=== PATIENT | male | born 1965 | race American Indian/Alaskan Native ===

== ENCOUNTER 2020-07-02 07:14 | Emergency (ER) | payer SELFPAY ==
[2020-07-02] MEDS ORDERED: levETIRAcetam 1000 MG/NS 0.75% 1,000 MG/100 ML BAG IV ONE (08:30)
[2020-07-02 08:56] LABS: Hematocrit 42.1 % (35.5-45.6); Hemoglobin 14.7 gm/dl (11.8-15.2); Mean Corpuscular HGB Conc 35 % (32-34); Mean Corpuscular Volume 98 fl (84-94); Red Blood Count 4.28 M/mm3 (3.65-5.03); Red Cell Distribution Width 13.5 % (13.2-15.2)
[2020-07-02 08:59] LABS: Platelet Count 79 K/mm3 (140-440)
[2020-07-02 09:25] LABS: Alanine Aminotransferase 64 units/L (7-56); Albumin 4.5 g/dL (3.9-5); Bilirubin,Direct 0.4 mg/dL (0-0.2); Blood Urea Nitrogen 9 mg/dL (9-20); Calcium 9.6 mg/dL (8.4-10.2); Hemolysis Index 14
[2020-07-02 09:29] LABS: BUN/Creatinine Ratio 13
--- NOTE | 2020-07-02 10:07 | Emergency Department Report ---
ED Seizure HPI - General Chief Complaint: Seizure Stated Complaint: SEIZURE Time Seen by Provider: 07/02/20 08:25 Source: patient, EMS Mode of arrival: Stretcher Limitations: No Limitations - History of Present Illness Initial Comments: This is a 54-year-old male who was transported by EMS after a seizure of "approximately 5 minutes". Patient is very limited historian and is likely postictal. He has somewhat repetitive speech. He is able to tell me that he does drink beer and that he has not had any for 2 days. He does not admit to withdrawal type symptoms. I think he is saying that he has previously had a seizure. It does appear that perhaps he has a slight right facial paresis/asymmetry. He cannot tell me if he has had a previous stroke. MD Complaint: seizure -: Sudden Description of Episode: loss of consciousness -: minutes(s) - Related Data Previous Rx's Medication Instructions Recorded Last Taken Type cefUROXime [Ceftin] 250 mg PO Q12H #14 tablet 07/02/20 Unknown Rx levETIRAcetam [Keppra TAB] 500 mg PO BID #60 tablet 07/02/20 Unknown Rx Allergies Allergy/AdvReac Type Severity Reaction Status Date / Time No Known Allergies Allergy Unverified 07/02/20 08:01 ED Review of Systems ROS: Stated complaint: SEIZURE Other details as noted in HPI Comment: Unobtainable due to pts medical conditions ED Past Medical Hx - Past Medical History Previous Medical History?: Yes Hx Hypertension: Yes Hx Seizures: Yes - Social History Smoking Status: Current Every Day Smoker Substance Use Type: None - Medications Home Medications: Home Medications Medication Instructions Recorded Confirmed Last Taken Type cefUROXime [Ceftin] 250 mg PO Q12H #14 tablet 07/02/20 Unknown Rx levETIRAcetam [Keppra TAB] 500 mg PO BID #60 tablet 07/02/20 Unknown Rx ED Physical Exam - General Limitations: Other General appearance: alert, in no apparent distress - Head Head exam: Present: atraumatic, normocephalic - Eye Eye exam: Present: normal appearance, PERRL, EOMI. Absent: scleral icterus (Postictal) - ENT ENT exam: Present: mucous membranes moist, other (Facial asymmetry) - Neck Neck exam: Present: normal inspection. Absent: tenderness, meningismus - Respiratory Respiratory exam: Present: normal lung sounds bilaterally. Absent: respiratory distress - Cardiovascular Cardiovascular Exam: Present: regular rate, normal rhythm. Absent: systolic murmur, diastolic murmur, rubs, gallop - GI/Abdominal GI/Abdominal exam: Present: soft, normal bowel sounds. Absent: distended, tenderness, guarding, rebound, rigid - Rectal Rectal exam: Present: deferred - Extremities Exam Extremities exam: Present: normal inspection - Back Exam Back exam: Present: normal inspection - Neurological Exam Neurological exam: Present: altered. Absent: CN II-XII intact (Right facial asymmetry partial paresis), motor sensory deficit - Psychiatric Psychiatric exam: Present: normal mood, flat affect - Skin Skin exam: Present: warm, dry, intact, normal color. Absent: rash ED Course Vital Signs 07/02/20 07/02/20 07:15 08:11 Temperature 98.2 F Pulse Rate 98 H Respiratory 16 16 Rate Blood Pressure 135/89 O2 Sat by Pulse 95 95 Oximetry - Reevaluation(s) Reevaluation #1: Patient is a bit hard to comprehend. However I believe he is stating that he has a history of seizures. Apparently his is his caregiver. He has no signs of any neurological progression. He is awake alert ambulatory and requesting discharge. He states that he does not drive. 07/02/20 14:41 ED Medical Decision Making - Lab Data Result diagrams: 07/02/20 08:38 07/02/20 08:38 Laboratory Results - last 24 hr 07/02/20 07/02/20 08:38 08:38 WBC 5.5 RBC 4.28 Hgb 14.7 Hct 42.1 MCV 98 H MCH 34 H MCHC 35 H RDW 13.5 Plt Count 79 L Add Manual Diff Complete Total Counted 100 Seg Neuts % (Manual) 79.0 H Band Neutrophils % 0 Lymphocytes % (Manual) 13.0 L Reactive Lymphs % (Man) 0 Monocytes % (Manual) 8.0 H Eosinophils % (Manual) 0 Basophils % (Manual) 0 Metamyelocytes % 0 Myelocytes % 0 Promyelocytes % 0 Blast Cells % 0 Nucleated RBC % Not Reportable Seg Neutrophils # Man 4.3 Band Neutrophils # 0.0 Lymphocytes # (Manual) 0.7 L Abs React Lymphs (Man) 0.0 Monocytes # (Manual) 0.4 Eosinophils # (Manual) 0.0 Basophils # (Manual) 0.0 Metamyelocytes # 0.0 Myelocytes # 0.0 Promyelocytes # 0.0 Blast Cells # 0.0 WBC Morphology Not Reportable Hypersegmented Neuts Not Reportable Hyposegmented Neuts Not Reportable Hypogranular Neuts Not Reportable Smudge Cells Not Reportable Toxic Granulation Not Reportable Toxic Vacuolation Not Reportable Dohle Bodies Not Reportable Pelger-Huet Anomaly Not Reportable Joseph Rods Not Reportable Platelet Estimate Consistent w auto Clumped Platelets Not Reportable Plt Clumps, EDTA Not Reportable Large Platelets Not Reportable Giant Platelets Not Reportable Platelet Satelliting Not Reportable Plt Morphology Comment Not Reportable RBC Morphology Not Reportable Dimorphic RBCs Not Reportable Polychromasia Not Reportable Hypochromasia Not Reportable Poikilocytosis Not Reportable Anisocytosis Not Reportable Microcytosis Not Reportable Macrocytosis Not Reportable Spherocytes Not Reportable Pappenheimer Bodies Not Reportable Sickle Cells Not Reportable Target Cells Not Reportable Tear Drop Cells Not Reportable Ovalocytes Not Reportable Helmet Cells Not Reportable Galarza-[place] Bodies Not Reportable [place] Rings Not Reportable [place] Cells Not Reportable Bite Cells Not Reportable Crenated Cell Not Reportable Elliptocytes Not Reportable Acanthocytes (Spur) Not Reportable Rouleaux Not Reportable Hemoglobin C Crystals Not Reportable Schistocytes Not Reportable Malaria parasites Not Reportable Yong Bodies Not Reportable Hem Pathologist Commnt No Sodium 133 L Potassium 4.3 Chloride 91.3 L Carbon Dioxide 22 Anion Gap 24 BUN 9 Creatinine 0.7 L Estimated GFR > 60 BUN/Creatinine Ratio 13 Glucose 103 H Calcium 9.6 Total Bilirubin 1.00 Direct Bilirubin 0.4 H Indirect Bilirubin 0.6 AST 120 H ALT 64 H Alkaline Phosphatase 59 Total Protein 7.6 Albumin 4.5 Albumin/Globulin Ratio 1.5 - Radiology Data Radiology results: report reviewed (Encephalomalacia, no acute process), image reviewed Critical care attestation.: If time is entered above; I have spent that time in minutes in the direct care of this critically ill patient, excluding procedure time. ED Disposition Clinical Impression: Generalized seizure, Chronic liver disease, Thrombocytopenia UTI (urinary tract infection) Qualifiers: Urinary tract infection type: site unspecified Hematuria presence: without hematuria Qualified Code(s): N39.0 - Urinary tract infection, site not specified Disposition: DC- TO HOME OR SELFCARE Is pt being admited?: No Does the pt Need Aspirin: No Condition: Stable Instructions: Epilepsy (ED), Urinary Tract Infection in Men (ED) Additional Instructions: You appear to have a urinary tract infection. Rx as directed. Seizure medicine as directed. Follow-up with your primary care provider. If you do not have one you can contact [facility] vic or Dr. Kelly. Urine culture will be ready for review in 2 to 3 days. Prescriptions: cefUROXime [Ceftin] 250 mg PO Q12H #14 tablet levETIRAcetam [Keppra TAB] 500 mg PO BID #60 tablet Referrals: DEXTER RIVAS MD [Primary Care Provider] - 3-5 Days Time of Disposition: 14:49
[2020-07-02 10:11] LABS: Basophils % (Manual) 0 % (0.0-1.8); Eosinophils % (Manual) 0 % (0.0-4.3); Platelet Estimate Consistent w Auto; Total Cells Counted 100
[2020-07-02] MEDS ORDERED: THIAMINE 100 MG, FOLIC ACID 1 MG, MULTIPLE VITAMIN INJ, ADULT 10 ML in SODIUM CHLORIDE ... IV ONE (11:00)
[2020-07-02 11:49] LABS: Bacteria,Urine 1+ /HPF (Negative); Bilirubin,Urine NEG (Negative); Blood,Urine MOD (Negative); Color,Urine Yellow (Yellow); Mucus,Urine 2+ /HPF
[2020-07-02 11:50] LABS: Amphetamine Screen,Urine Negative; Benzodiazepines Screen,Urine Negative; Cannabinoid Screen,Urine Negative; Cocaine Screen,Urine Negative; Methadone Screen,Urine Negative; Opiate Screen,Urine Negative
--- NOTE | 2020-07-02 12:25 | XRay Report ---
CHEST PA AND LATERAL VIEWS INDICATION: cough. COMPARISON: None FINDINGS: Support devices: None Heart: Normal Lungs/Pleura: Healing rib fractures on the left, but no significant pulmonary or pleural disease. IMPRESSION: 1. No acute abnormality. Signer Name: Alex Cedillo MD Signed: 07/02/2020 12:20 PM Workstation Name: [id number]
[2020-07-02 19:15] VITALS: BP 132/86
--- NOTE | 2020-07-03 09:29 | Cat Scan Report ---
CT head/brain wo con INDICATION: Seizure. TECHNIQUE: Routine CT head without contrast. All CT scans at this location are performed using CT dos e reduction for ALARA by means of automated exposure control. COMPARISON: None. FINDINGS: Intracranial: Encephalomalacia in the left frontal and left lateral temporal lobe. Anticipated mild e x vacuo dilation of the left lateral ventricle. Roberts-white matter differentiation is maintained. No i ntracranial hemorrhage. No extra axial collection.. No hydrocephalus. No herniation. Sinuses: Paranasal sinuses and mastoid air cells are essentially clear. Orbits: Globes are intact. Calvarium: No acute fracture. IMPRESSION: 1. No acute intracranial abnormality. 2. Extensive encephalomalacia in the left frontal and left lateral temporal lobe. Signer Name: Misha Aaron MD Signed: 07/02/2020 9:39 AM Workstation Name: [id number]
== END 2020-07-02 16:00 | disposition home or self-care (01) ==
LOC: ED 07:14
DX: K76.9 Liver disease, unspecified (principal); D69.6 Thrombocytopenia, unspecified; N39.0 Urinary tract infection, site not specified; I10 Essential (primary) hypertension; F17.200 Nicotine dependence, unspecified, uncomplicated; Z86.69 Personal history of other diseases of the nervous system and sense organs; Z79.899 Other long term (current) drug therapy
CPT/HCPCS: 36415; 70450; 71046; 80048; 80076; 80307; 81001; 85007; 85025; 87086; 96365; 96367; 99285; J1953; J3411; J7030

== ENCOUNTER 2021-11-01 21:40 | Emergency (ER) | payer SELFPAY ==
[2021-11-01] MEDS ORDERED: levETIRAcetam 1000 MG/NS 0.75% 1,000 MG/100 ML BAG IV ONE (21:42)
[2021-11-01] MEDS ORDERED: LORazepam 2 MG/ML VIAL IV ONE (21:42)
[2021-11-01 22:34] LABS: Basophils # (Auto) 0.1 K/mm3 (0.0-0.1); Basophils % (Auto) 0.5 % (0.0-1.8); Hematocrit 38.6 % (35.5-45.6); Hemoglobin 12.6 gm/dl (11.8-15.2); Lymphocytes # (Auto) 0.7 K/mm3 (1.2-5.4); Lymphocytes % (Auto) 5.7 % (13.4-35.0); Mean Corpuscular HGB Conc 33 % (32-34); Mean Corpuscular Volume 100 fl (84-94); Monocytes # (Auto) 1.1 K/mm3 (0.0-0.8); Monocytes % (Auto) 8.6 % (0.0-7.3); Platelet Count 136 K/mm3 (140-440); Red Blood Count 3.87 M/mm3 (3.65-5.03); Red Cell Distribution Width 15.6 % (13.2-15.2)
[2021-11-01 22:54] LABS: Blood Urea Nitrogen 7 mg/dL (9-20); Calcium 8.7 mg/dL (8.4-10.2); Hemolysis Index 12
[2021-11-01 23:00] LABS: BUN/Creatinine Ratio 14
--- NOTE | 2021-11-02 03:02 | Emergency Department Report ---
ED Seizure HPI - General Chief Complaint: Seizure Stated Complaint: SEIZURE Time Seen by Provider: 11/01/21 21:41 Source: patient, family (daughter), EMS Mode of arrival: Stretcher Limitations: Altered Mental Status - History of Present Illness Initial Comments: Chief complaint: Seizure HPI: This is a 56-year-old male with history of alcohol dependence, seizure, traumatic brain injury, hypertension who presents with 3 seizures. Patient has had 3 seizures today. He did not take his Keppra dose this morning. He has not drank alcohol due to "lack of funds" according to his daughter. He does have seizures when he withdraws from alcohol. He takes Keppra 500 mg twice daily. He also takes hydrochlorothiazide. He was transported via EMS. He drinks alcohol "all day". Typically drinks 1 tall bottle of alcohol every day. He has been on disability for 8 years due to traumatic brain injury. At the time of the injury years ago he did not require surgery. However he was admitted to [facility] for 1 week. MD Complaint: seizure -: days(s) (3 seizures today) Witnessed:: Yes Trauma: No Seizure History: known seizure disorder Place: home Possible Precipitating Event: alcohol withdrawal Associated Symptoms: denies other symptoms - Related Data Previous Rx's Medication Instructions Recorded Last Taken Type cefUROXime [Ceftin] 250 mg PO Q12H #14 tablet 07/02/20 Unknown Rx levETIRAcetam [Keppra TAB] 500 mg PO BID #60 tablet 07/02/20 Unknown Rx Potassium Chloride [K-Dur] 10 meq PO QDAY 30 Days #30 tablet 11/02/21 Unknown Rx chlordiazePOXIDE [Librium] 25 mg PO QID #10 capsule 11/02/21 Unknown Rx Allergies Allergy/AdvReac Type Severity Reaction Status Date / Time No Known Allergies Allergy Unverified 07/02/20 08:01 ED Review of Systems ROS: Stated complaint: SEIZURE Other details as noted in HPI Comment: All other systems reviewed and negative (Postictal state) Constitutional: denies: chills, fever, malaise Cardiovascular: denies: chest pain Gastrointestinal: denies: abdominal pain, nausea, vomiting ED Past Medical Hx - Past Medical History Previous Medical History?: Yes Hx Hypertension: Yes Hx Seizures: Yes Additional medical history: Traumatic brain injury - Surgical History Past Surgical History?: No - Family History Family history: other (Alcoholism among male relatives) - Social History Smoking Status: Current Every Day Smoker Substance Use Type: Alcohol - Medications Home Medications: Home Medications Medication Instructions Recorded Confirmed Last Taken Type cefUROXime [Ceftin] 250 mg PO Q12H #14 tablet 07/02/20 Unknown Rx levETIRAcetam [Keppra TAB] 500 mg PO BID #60 tablet 07/02/20 Unknown Rx Potassium Chloride [K-Dur] 10 meq PO QDAY 30 Days #30 tablet 11/02/21 Unknown Rx chlordiazePOXIDE [Librium] 25 mg PO QID #10 capsule 11/02/21 Unknown Rx ED Physical Exam - General Limitations: Altered Mental Status General appearance: alert, in no apparent distress, other (Purposeful movement, moves all 4 extremities, protecting airway) - Head Head exam: Present: atraumatic, normocephalic - Eye Eye exam: Present: normal appearance - ENT ENT exam: Present: mucous membranes moist - Neck Neck exam: Present: normal inspection, full ROM - Respiratory Respiratory exam: Present: normal lung sounds bilaterally. Absent: respiratory distress, wheezes, rales, rhonchi - Cardiovascular Cardiovascular Exam: Present: regular rate, normal rhythm, normal heart sounds. Absent: systolic murmur, diastolic murmur, rubs, gallop - GI/Abdominal GI/Abdominal exam: Present: soft, normal bowel sounds - Rectal Rectal exam: Present: deferred - Extremities Exam Extremities exam: Present: normal inspection - Back Exam Back exam: Present: normal inspection - Neurological Exam Neurological exam: Present: alert, oriented X3 - Psychiatric Psychiatric exam: Present: flat affect - Skin Skin exam: Present: warm, dry, intact, normal color. Absent: rash ED Course Vital Signs 11/01/21 22:40 Temperature 98.9 F Pulse Rate 95 H Respiratory 20 Rate Blood Pressure 137/79 [Right] O2 Sat by Pulse 90 Oximetry - Reevaluation(s) Reevaluation #1: 11/02/21 03:10 Patient is alert and oriented x4. He states that he was in his normal health prior to the seizures. He is ready to be discharged. ED Medical Decision Making - Lab Data Result diagrams: 11/01/21 21:50 11/01/21 21:50 - Medical Decision Making Breakthrough seizure versus alcohol withdrawal seizure: Patient received IV lorazepam, IV Keppra load Nonspecific leukocytosis. Potassium 2.9. Hypokalemia attributed to malnutrition and hydrochlorothiazide use. Prescribed potassium tablets. Referred to neurologist. Referred to his primary care physician. Critical care attestation.: If time is entered above; I have spent that time in minutes in the direct care of this critically ill patient, excluding procedure time. ED Disposition Clinical Impression: Alcohol withdrawal seizure, Breakthrough seizure Disposition: 01 HOME / SELF CARE / HOMELESS Is pt being admited?: No Does the pt Need Aspirin: No Condition: Stable Instructions: Alcohol Withdrawal Syndrome, Seizure, Adult, [id number], Alcohol Withdrawal Syndrome, [id number] Prescriptions: Potassium Chloride [K-Dur] 10 meq PO QDAY 30 Days #30 tablet chlordiazePOXIDE [Librium] 25 mg PO QID #10 capsule Referrals: PRIMARY MD ADAIR [Primary Care Provider] - 3-5 Days GI HUYNH MD [Referring] - 3-5 Days
[2021-11-02 09:09] VITALS: BP 146/89
== END 2021-11-02 08:15 | disposition home or self-care (01) ==
LOC: ED 21:40
DX: G40.909 Epilepsy, unspecified, not intractable, without status epilepticus (principal); F10.231 Alcohol dependence with withdrawal delirium; F17.200 Nicotine dependence, unspecified, uncomplicated; I10 Essential (primary) hypertension; Z79.899 Other long term (current) drug therapy; Z98.890 Other specified postprocedural states
CPT/HCPCS: 36415; 80048; 85025; 96374; 96375; 99284; J1953; J2060

== ENCOUNTER 2022-03-18 07:47 | Inpatient (IN) | payer SELFPAY ==
[2022-03-18] MEDS ORDERED: levETIRAcetam 1000 MG/NS 0.75% 1,000 MG/100 ML BAG IV ONE (08:14)
--- NOTE | 2022-03-18 08:19 | Consultation ---
History of Present Illness History of present illness: [facility] Consult Note # Demographics Consult Type: Acute Stroke Level 1 (0-4.5 hrs) Patient Location: Emergency Room First Name: Oliverio Last Name: Mick Date of : 1965 Age: 56 Gender: Male Facility: [facility] Time of Initial Page (): 03/18/2022, 07:39 Time of Return Call ( Time): 03/18/2022, 07:40 # HPI Chief Complaint: altered mental state speech changes weakness (focal) History: 56M with seizures on levetiracetam, HTN presents with confusion, speech changes and right-sided weakness. LKWT evening prior. # Scores Time of exam and NIHSS (): 03/18/2022, 07:46 Level of Consciousness 1a: [0] = Alert; keenly responsive LOC Questions 1b: [2] = Answers neither correctly LOC Commands 1c: [0] = Performs both tasks correctly Best Gaze 2: [0] = Normal Visual 3: [2] = Complete hemianopia Facial Palsy 4: [0] = Normal symmetrical movements Motor Arm Left 5a: [0] = No drift Motor Arm Right 5b: [4] = No movement Motor Leg Left 6a: [2] = Some effort against gravity Motor Leg Right 6b: [3] = No effort against gravity Limb Ataxia 7: [0] = Absent Sensory 8: [0] = Normal Best Language 9: [3] = Mute Dysarthria 10: [2] = Severe dysarthria Extinction and Inattention 11: [0] = No abnormality NIHSS Total: 18 # Data Time Head CT personally read by me (): 03/18/2022, 07:[address]: no bleed CTH with chronic appearing changes in the left MCA territory. 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 # Plan Thrombolytic/Intervention: NOT IV Thrombolysis or IA Intervention candidate Thrombolytic Exclusion: > 4.5 hours Intraarterial Exclusion: no large vessel occlusion (LVO) Target Blood Pressure: SBP < 220 DBP < 105 Labs: hemoglobin A1c lipid panel Imaging: (urgency: routine): MRI Brain without contrast Diagnostic Test: echo with bubble study EEG Therapy/Evaluation: NPO until swallow evaluation PT/OT evaluation speech/swallow consultation Medication: Levetiracetam 2g x1 now, then continue home dose ASA 300 UT DVT Prophylaxis: SCD Other: consult on-site neurology service for full work-up and evaluation recommendations telemetry monitoring I have discussed my recommendations with the referring provider Disposition: admit # Logistics Telemedicine: Interactive 2 way audio and visual telecommunication technology was utilized during this visit Electronically signed at 03/18/2022 08:15 (Eastern Time) by Manuel Martinez MD Medications and Allergies Allergies Allergy/AdvReac Type Severity Reaction Status Date / Time No Known Allergies Allergy Verified 03/18/22 07:50 Home Medications Medication Instructions Recorded Confirmed Last Taken Type cefUROXime [Ceftin] 250 mg PO Q12H #14 tablet 07/02/20 Unknown Rx levETIRAcetam [Keppra TAB] 500 mg PO BID #60 tablet 07/02/20 Unknown Rx Potassium Chloride [K-Dur] 10 meq PO QDAY 30 Days #30 tablet 11/02/21 Unknown Rx chlordiazePOXIDE [Librium] 25 mg PO QID #10 capsule 11/02/21 Unknown Rx Active Meds: Active Medications Levetiracetam (Keppra 1,000 Mg/Ns 0.75% 100ml) 1,000 mg in 100 mls @ 400 mls/hr IV ONCE ONE Stop: 03/18/22 08:28
--- NOTE | 2022-03-18 08:32 | Cat Scan Report ---
. CT BRAIN: 03/08/2022 INDICATION / CLINICAL INFORMATION: Stroke. No additional information provided. COMPARISON: CT brain 09/01/2020 FINDINGS: BRAIN/INTRACRANIAL STRUCTURES: Unenhanced CT images of the brain were obtained. There is chronic cortical encephalomalacia involving portions of the left temporal, frontal, and javier etal lobes, consistent with remote ischemic injury. Underlying diffuse cerebral atrophy and atrophic central ventricular megaly is noted. There is no CT evidence of acute large vessel territory ischemic injury, hemorrhage, or mass. There a re no abnormal extra-axial fluid collections. Atherosclerotic vascular calcifications are noted. 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 This is a normal variant. EXTRACRANIAL STRUCTURES: Unremarkable. IMPRESSION: Chronic left MCA territory ischemic encephalomalacia. Diffuse cerebral atrophy. Overall no significant change when compared to 07/02/2020. Notification: Flip MCKEON in the emergency department at [address] scans at this location are performed using dose reduction to ALARA by means of automated expos ure control. Signer Name: Juan Leon MD Signed: 03/18/2022 8:27 AM Workstation Name: [id number]
--- NOTE | 2022-03-18 08:45 | Cat Scan Report ---
CT angio neck, CT angio head HISTORY: stroke sx 100 ml omni 350 COMPARISON: CT head earlier same day TECHNIQUE: CTA of the neck and head is performed after IV contrast. 3-D/MIP reformats were postproces sed. Percentage stenosis is determined by direct quantitative measurements of diseased internal horton tid artery diameter compared with normal distal internal carotid artery reference segments or by crit eria similar to NASCET where applicable. All CT scans at this location are performed using CT dose re duction for ALARA by means of automated exposure control. FINDINGS: CTA NECK: Aortic arch: No significant abnormality. Cervical vertebral arteries: Mild atherosclerosis stenosis involving the left vertebral artery origin . No occlusion or hemodynamically significant stenosis. Common Carotid arteries: No occlusion or hemodynamically significant stenosis. Internal carotid arteries: Moderate quantity calcified atherosclerosis seen within the right greater than left proximal internal carotid arteries. However, there is no hemodynamically significant stenos is or occlusion. There is less than 50% stenosis present. CTA HEAD: Intracranial internal carotid arteries: No occlusion or significant stenosis. Anterior cerebral arteries: No occlusion or significant stenosis. Middle cerebral arteries: No occlusion or significant stenosis. Intracranial vertebral arteries: No occlusion or significant stenosis. Basilar artery: No occlusion or significant stenosis. Posterior cerebral arteries: No occlusion or significant stenosis. No aneurysm. Additional findings: Flow artifact is seen within the right internal jugular bulb. IMPRESSION: 1. CTA NECK: No occlusion or significant stenosis of the carotid or vertebral arteries. 2. CTA HEAD: No occlusion or significant stenosis of the major intracranial vasculature. Signer Name: Misha Aaron MD Signed: 03/18/2022 8:41 AM Workstation Name: [id number]
--- NOTE | 2022-03-18 08:46 | XRay Report ---
XR chest 1V ap INDICATION / CLINICAL INFORMATION: stroke COMPARISON: July 12, 2020 FINDINGS: SUPPORT DEVICES: None. HEART / MEDIASTINUM: No significant abnormality. LUNGS / PLEURA: Lungs are clear. Costophrenic sulci are sharp. No pneumothorax. ADDITIONAL FINDINGS: Remote left-sided rib fractures. No significant additional findings. IMPRESSION: 1. No acute findings. Signer Name: Misha Aaron MD Signed: 03/18/2022 8:41 AM Workstation Name: [email or web address]
[2022-03-18 08:51] LABS: Basophils % (Auto) 0.3 % (0.0-1.8); Eosinophils % (Auto) 0.2 % (0.0-4.3); Hematocrit 35.3 % (35.5-45.6); Hemoglobin 12.2 gm/dl (11.8-15.2); Lymphocytes # (Auto) 0.8 K/mm3 (1.2-5.4); Lymphocytes % (Auto) 13.8 % (13.4-35.0); Mean Corpuscular HGB Conc 35 % (32-34); Mean Corpuscular Volume 102 fl (84-94); Monocytes # (Auto) 0.8 K/mm3 (0.0-0.8); Monocytes % (Auto) 13.4 % (0.0-7.3); Platelet Count 126 K/mm3 (140-440); Red Blood Count 3.45 M/mm3 (3.65-5.03); Red Cell Distribution Width 13.9 % (13.2-15.2)
[2022-03-18 09:00] LABS: Creatine Kinase MB 1.7 ng/mL (0.0-4.0); INR 0.86 (0.87-1.13)
[2022-03-18 09:01] LABS: Blood Urea Nitrogen 6 mg/dL (9-20); Calcium 8.8 mg/dL (8.4-10.2); Hemolysis Index 2; Partial Thromboplastin Time 29.5 Sec. (24.2-36.6); Thrombin Time 16.6 Sec. (15.1-19.6)
[2022-03-18 09:02] LABS: Albumin 3.5 g/dL (3.9-5); Bilirubin,Direct 1.1 mg/dL (0-0.2)
[2022-03-18 09:05] LABS: BUN/Creatinine Ratio 15
--- NOTE | 2022-03-18 09:17 | Emergency Department Report ---
ED Neuro Deficit HPI - General Chief Complaint: Neuro Symptoms/Deficit Stated Complaint: POSS CVA Time Seen by Provider: 03/18/22 07:49 Source: EMS Mode of arrival: Stretcher Limitations: Altered Mental Status - History of Present Illness Initial Comments: Patient is 56-year-old male with history of seizure and hypertension. Patient brought to the emergency room via EMS for evaluation of possible stroke. EMS stated that patient woke up with the symptoms that include altered mental status difficulty speaking and right sided weakness. According to the patient patient was complaining of not feeling well last night. Upon arrival to the ER, stroke protocol immediately initiated and patient moved to CT for stat CT brain. Stroke telemetry neurologist immediately consulted and patient examined by Dr. Anthony Jackson. Patient is not a tPA candidate since the onset of time is unknown. -: Sudden, unknown Location: speech, dysarthria, right arm, right leg Presenting Symptoms: Present: Weak/Paralyzed One Side, Unable to Speak Clearly Place: home Severity: severe Context: sudden onset - Related Data Home Medications: Previous Rx's Medication Instructions Recorded Last Taken Type cefUROXime [Ceftin] 250 mg PO Q12H #14 tablet 07/02/20 Unknown Rx levETIRAcetam [Keppra TAB] 500 mg PO BID #60 tablet 07/02/20 Unknown Rx Potassium Chloride [K-Dur] 10 meq PO QDAY 30 Days #30 tablet 11/02/21 Unknown Rx chlordiazePOXIDE [Librium] 25 mg PO QID #10 capsule 11/02/21 Unknown Rx Allergies/Adverse Reactions: Allergies Allergy/AdvReac Type Severity Reaction Status Date / Time No Known Allergies Allergy Verified 03/18/22 07:50 ED Review of Systems ROS: Stated complaint: POSS CVA Other details as noted in HPI Comment: All other systems reviewed and negative Constitutional: denies: chills, fever Respiratory: denies: cough, shortness of breath, SOB with exertion Cardiovascular: denies: chest pain, palpitations Gastrointestinal: denies: abdominal pain, nausea, vomiting Musculoskeletal: denies: back pain Neurological: weakness. denies: headache ED Past Medical Hx - Past Medical History Hx Hypertension: Yes Hx Seizures: Yes Additional medical history: Traumatic brain injury - Social History Smoking Status: Current Every Day Smoker Substance Use Type: Alcohol - Medications Home Medications: Home Medications Medication Instructions Recorded Confirmed Last Taken Type cefUROXime [Ceftin] 250 mg PO Q12H #14 tablet 07/02/20 03/18/22 Unknown Rx levETIRAcetam [Keppra TAB] 500 mg PO BID #60 tablet 07/02/20 03/18/22 Unknown Rx Potassium Chloride [K-Dur] 10 meq PO QDAY 30 Days #30 tablet 11/02/21 03/18/22 Unknown Rx chlordiazePOXIDE [Librium] 25 mg PO QID #10 capsule 11/02/21 03/18/22 Unknown Rx ED Neuro Physical Exam - General Limitations: Altered Mental Status General appearance: alert, in no apparent distress Suspected Stroke: Yes - Head Head exam: Present: atraumatic, normocephalic, normal inspection - Eye Eye exam: Present: normal appearance - ENT ENT exam: Present: normal exam, normal orophraynx, mucous membranes moist - Neck Neck exam: Present: normal inspection, full ROM. Absent: tenderness, meningismus - Respiratory Respiratory exam: Present: normal lung sounds bilaterally - Cardiovascular Cardiovascular Exam: Present: regular rate, normal rhythm, normal heart sounds - GI/Abdominal GI/Abdominal exam: Present: soft, normal bowel sounds. Absent: distended, tenderness, guarding, rebound, rigid, mass - Back Exam Back exam: Present: normal inspection, full ROM. Absent: CVA tenderness (R), CVA tenderness (L) - Neurological Exam Neurological exam: Present: alert, altered - NIHSS Assessment Interval: Baseline 1a. Level of Consciousness: alert/keenly responsive 1b. LOC Questions: answers no questions correctly 1c. LOC Commands: performs tasks correctly 2. Best Gaze: normal 3. Visual: complete hemianopia 4. Facial Palsy: normal symmetrical movement 5b. Motor Arm Right: some gravity effort 5a. Motor Arm Left: no drift 6a. Motor Leg Left: some gravity effort 6b. Motor Leg Right: no gravity effort 7. Limb Ataxia: absent 8. Sensory: no response/quadraplegic 9. Best Language: mute/global aphasia 10. Dysarthria: mute/anarrthric 11. Extinction/Inattention: no abnormality Total Score: 18 Stroke Severity: Moderate to Severe Stroke - Psychiatric Psychiatric exam: Present: flat affect - Skin Skin exam: Present: warm, intact, normal color ED Course Vital Signs 03/18/22 08:33 Temperature 98.9 F - Lab Data Result diagrams: 03/18/22 08:14 03/18/22 08:14 Lab Results 03/18/22 03/18/22 03/18/22 Range/Units 08:14 08:14 08:14 WBC 6.0 (4.5-11.0) K/mm3 RBC 3.45 L (3.65-5.03) M/mm3 Hgb 12.2 (11.8-15.2) gm/dl Hct 35.3 L (35.5-45.6) % MCV 102 H (84-94) fl MCH 35 H (28-32) pg MCHC 35 H (32-34) % RDW 13.9 (13.2-15.2) % Plt Count 126 L (140-440) K/mm3 Lymph % (Auto) 13.8 (13.4-35.0) % [place] % (Auto) 13.4 H (0.0-7.3) % Eos % (Auto) 0.2 (0.0-4.3) % Baso % (Auto) 0.3 (0.0-1.8) % Lymph # (Auto) 0.8 L (1.2-5.4) K/mm3 [place] # (Auto) 0.8 (0.0-0.8) K/mm3 Eos # (Auto) 0.0 (0.0-0.4) K/mm3 Baso # (Auto) 0.0 (0.0-0.1) K/mm3 Seg Neutrophils % 72.3 H (40.0-70.0) % Seg Neutrophils # 4.3 (1.8-7.7) K/mm3 PT 12.6 (12.2-14.9) Sec. INR 0.86 L (0.87-1.13) APTT 29.5 (24.2-36.6) Sec. Thrombin Time 16.6 (15.1-19.6) Sec. Sodium 132 L (137-145) mmol/L Potassium 2.3 L* (3.6-5.0) mmol/L Chloride 82.0 L (98-107) mmol/L Carbon Dioxide 28 (22-30) mmol/L Anion Gap 24 mmol/L BUN 6 L (9-20) mg/dL Creatinine 0.4 L (0.8-1.3) mg/dL Estimated GFR > 60 ml/min BUN/Creatinine Ratio 15 % Glucose 97 (75-100) mg/dL Calcium 8.8 (8.4-10.2) mg/dL Total Bilirubin (0.1-1.2) mg/dL Direct Bilirubin (0-0.2) mg/dL Indirect Bilirubin mg/dL AST (5-40) units/L ALT (7-56) units/L Alkaline Phosphatase (35-129) units/L Total Creatine Kinase 83 (55-170) units/L CK-MB (CK-2) 1.7 (0.0-4.0) ng/mL CK-MB (CK-2) Rel Index 2.0 (0-4) Troponin T < 0.010 (0.00-0.029) ng/mL Total Protein (6.3-8.2) g/dL Albumin (3.9-5) g/dL Albumin/Globulin Ratio % Plasma/Serum Alcohol (0-0.07) % 03/18/22 03/18/22 Range/Units 08:14 08:14 WBC (4.5-11.0) K/mm3 RBC (3.65-5.03) M/mm3 Hgb (11.8-15.2) gm/dl Hct (35.5-45.6) % MCV (84-94) fl MCH (28-32) pg MCHC (32-34) % RDW (13.2-15.2) % Plt Count (140-440) K/mm3 Lymph % (Auto) (13.4-35.0) % [place] % (Auto) (0.0-7.3) % Eos % (Auto) (0.0-4.3) % Baso % (Auto) (0.0-1.8) % Lymph # (Auto) (1.2-5.4) K/mm3 [place] # (Auto) (0.0-0.8) K/mm3 Eos # (Auto) (0.0-0.4) K/mm3 Baso # (Auto) (0.0-0.1) K/mm3 Seg Neutrophils % (40.0-70.0) % Seg Neutrophils # (1.8-7.7) K/mm3 PT (12.2-14.9) Sec. INR (0.87-1.13) APTT (24.2-36.6) Sec. Thrombin Time (15.1-19.6) Sec. Sodium (137-145) mmol/L Potassium (3.6-5.0) mmol/L Chloride (98-107) mmol/L Carbon Dioxide (22-30) mmol/L Anion Gap mmol/L BUN (9-20) mg/dL Creatinine (0.8-1.3) mg/dL Estimated GFR ml/min BUN/Creatinine Ratio % Glucose (75-100) mg/dL Calcium (8.4-10.2) mg/dL Total Bilirubin 1.70 H (0.1-1.2) mg/dL Direct Bilirubin 1.1 H (0-0.2) mg/dL Indirect Bilirubin 0.6 mg/dL AST 371 H (5-40) units/L ALT 140 H (7-56) units/L Alkaline Phosphatase 101 (35-129) units/L Total Creatine Kinase (55-170) units/L CK-MB (CK-2) (0.0-4.0) ng/mL CK-MB (CK-2) Rel Index (0-4) Troponin T (0.00-0.029) ng/mL Total Protein 7.1 (6.3-8.2) g/dL Albumin 3.5 L (3.9-5) g/dL Albumin/Globulin Ratio 1.0 % Plasma/Serum Alcohol < 0.01 (0-0.07) % - EKG Data -: EKG Interpreted by [place] - Radiology Data Radiology results: report reviewed - Medical Decision Making Patient is 56-year-old male with history of seizure and hypertension. Patient brought to the emergency room via EMS for evaluation of possible stroke. EMS stated that patient woke up with the symptoms that include altered mental status difficulty speaking and right sided weakness. According to the patient patient was complaining of not feeling well last night. Upon arrival to the ER, stroke protocol immediately initiated and patient moved to CT for stat CT brain. Stroke telemetry neurologist immediately consulted and patient examined by Dr. Anthony Jackson. Patient is not a tPA candidate since the onset of time is unknown. CT brain without contrast is unremarkable. CTA head and neck is negative for large vessel occlusion. Dr. Jackson advised to give Keppra and admit patient for stroke work-up and further management. I discussed the patient with Dr. Liz, she advised to admit the patient to Dr. Clement. Critical Care Time: Yes Critical care time in (mins) excluding proc time.: 35 Critical care attestation.: If time is entered above; I have spent that time in minutes in the direct care of this critically ill patient, excluding procedure time. ED Disposition Clinical Impression: Acute CVA (cerebrovascular accident), Acute repetitive seizure Disposition: ADMITTED INPATIENT Is pt being admited?: Yes Condition: Stable
[2022-03-18] MEDS: POTASSIUM CHLORIDE 10 MEQ 10 MEQ/100 ML BAG IV SCH ×2 (10:30→11:30)
[2022-03-18] MEDS ORDERED: ONDANSETRON 4 MG/2 ML INJ IV PRN (14:15)
[2022-03-18] MEDS ORDERED: NALOXONE 0.4 MG/1 ML INJ IV PRN (14:15)
[2022-03-18] MEDS ORDERED: MORPHINE 4 MG/1 ML INJ IV PRN (14:15)
[2022-03-18] MEDS ORDERED: HYDROcodone/ACETAMINOPHEN 5-325 MG TAB PO PRN (14:15)
[2022-03-18] MEDS ORDERED: DOCUSATE SODIUM 100 MG CAP PO PRN (14:15)
[2022-03-18] MEDS ORDERED: ACETAMINOPHEN 325 MG TAB PO PRN (14:15)
--- NOTE | 2022-03-18 14:15 | History and Physical Report ---
History of Present Illness Date of examination: 03/18/22 Date of admission: 03/18/2022 Chief complaint: Sudden altered mental status, dysarthria and right-sided weakness History of present illness: 56-year-old -[place] male patient with significant past medical history of seizure disorder, hypertension, chronic alcohol use presented to the emergency room with sudden onset of altered level of consciousness, difficulty speaking and right sided weakness. History was taken from the ER physician's note who got the history from the . Telemetry neurologist has evaluated the patient, stroke protocol initiated Patient was not a candidate for tPA.,No past medical history of CVA, patient has history of chronic alcohol use as well as chronic tobacco use Initial work-up in ED CT head without contrast; chronic left MCA territory ischemic encephalomalacia, diffuse cerebral atrophy, overall no significant change since 07/02/2020 CT CTA head; no occlusion or significant stenosis of major intracranial vessels CTA neck; no occlusion or significant stenosis of the carotid or vertebral arteries Chest x-ray no acute abnormality Patient had significant dysarthria and right-sided weakness. No other history available Past History Past Medical History: hypertension, seizures, other (Traumatic brain injury) Past Surgical History: No surgical history Social history: smoking, alcohol abuse Family history: no significant family history Medications and Allergies Allergies Allergy/AdvReac Type Severity Reaction Status Date / Time No Known Allergies Allergy Verified 03/18/22 07:50 Home Medications Medication Instructions Recorded Confirmed Last Taken Type levETIRAcetam [Keppra TAB] 500 mg PO BID #60 tablet 07/02/20 03/18/22 Unknown Rx Amlodipine Besylate [Norvasc] 10 mg PO QDAY 03/18/22 03/18/22 Unknown History Meloxicam [Mobic] 15 mg PO QDAY 03/18/22 03/18/22 Unknown History chlordiazePOXIDE [Librium] 12.5 mg PO QID 03/18/22 03/18/22 Unknown History Review of Systems ROS unobtainable: due to mental status (Patient unable to communicate due to dysarthria) Exam - Constitutional Vitals: Temp Pulse Resp BP Pulse Ox 98.9 F 03/18/22 08:33 General appearance: Present: mild distress, well-nourished, other (Dysarthria) - EENT Eyes: Present: PERRL, EOM intact ENT: hearing intact, clear oral mucosa - Neck Neck: Present: supple, normal ROM - Respiratory Respiratory effort: normal Respiratory: bilateral: diminished, negative: rales, rhonchi, wheezing - Cardiovascular Rhythm: regular Heart Sounds: Present: S1 & S2 - Extremities Extremities: no ischemia, No edema - Abdominal General gastrointestinal: Present: soft, non-tender, non-distended, normal bowel sounds - Integumentary Integumentary: Present: clear, warm - Musculoskeletal Musculoskeletal: right sided weakness - Psychiatric Psychiatric: cooperative, other (Dysarthria) - Neurologic Neurologic: other (Acute CVA, dysarthria, right upper and lower extremity weakness motor power right 2/ 5) HEART Score - HEART Score Troponin: Troponin T < 0.010 ng/mL (0.00-0.029) 03/18/22 08:14 Results - Labs CBC & Chem 7: 03/18/22 08:14 03/18/22 08:14 Labs: Abnormal lab results 03/18/22 03/18/22 03/18/22 Range/Units 08:14 08:14 08:14 RBC 3.45 L (3.65-5.03) M/mm3 Hct 35.3 L (35.5-45.6) % MCV 102 H (84-94) fl MCH 35 H (28-32) pg MCHC 35 H (32-34) % Plt Count 126 L (140-440) K/mm3 [place] % (Auto) 13.4 H (0.0-7.3) % Lymph # (Auto) 0.8 L (1.2-5.4) K/mm3 Seg Neutrophils % 72.3 H (40.0-70.0) % INR 0.86 L (0.87-1.13) Sodium 132 L (137-145) mmol/L Potassium 2.3 L* (3.6-5.0) mmol/L Chloride 82.0 L (98-107) mmol/L BUN 6 L (9-20) mg/dL Creatinine 0.4 L (0.8-1.3) mg/dL Total Bilirubin (0.1-1.2) mg/dL Direct Bilirubin (0-0.2) mg/dL AST (5-40) units/L ALT (7-56) units/L Albumin (3.9-5) g/dL 03/18/22 Range/Units 08:14 RBC (3.65-5.03) M/mm3 Hct (35.5-45.6) % MCV (84-94) fl MCH (28-32) pg MCHC (32-34) % Plt Count (140-440) K/mm3 [place] % (Auto) (0.0-7.3) % Lymph # (Auto) (1.2-5.4) K/mm3 Seg Neutrophils % (40.0-70.0) % INR (0.87-1.13) Sodium (137-145) mmol/L Potassium (3.6-5.0) mmol/L Chloride (98-107) mmol/L BUN (9-20) mg/dL Creatinine (0.8-1.3) mg/dL Total Bilirubin 1.70 H (0.1-1.2) mg/dL Direct Bilirubin 1.1 H (0-0.2) mg/dL AST 371 H (5-40) units/L ALT 140 H (7-56) units/L Albumin 3.5 L (3.9-5) g/dL Assessment and Plan -- Possible acute CVA; Neurochecks, fall precautions MRI brain, echocardiogram Aspirin 325 mg p.o. daily Unable to give statin, due to transaminitis Physical therapy and Occupational Therapy Evaluation and treatment, discharge needs Speech therapy evaluation and treatment Cardiac diet if patient passes the swallow test -- Hyponatremia; Gentle hydration with normal saline, monitor electrolytes --Hypokalemia; replenished with KCl Monitor electrolytes --GERD: Protonix, supportive care -- History of seizure disorder; Seizure precautions Resume home antiepileptic medications Neuro work-up, EEG -- Transaminitis/acute hepatitis/alcohol hepatitis Check hepatitis panel Probably secondary to alcohol Closely monitor Abdominal ultrasound, GI evaluation if needed --Ongoing tobacco use; Smoking cessation counseling when patient is more alert and awake And stable, nicotine patch as needed - History of chronic alcohol use; Counseling advised to quit alcohol intake Alcohol rehabilitation --Monitor for any alcohol withdrawal symptoms; Initiate CIWA protocol , --DVT prophylaxis ; Subcu Lovenox advanced care planning; We will closely monitor the patient and adjust the management as needed Follow neurology evaluation and recommendations
[2022-03-18] MEDS ORDERED: LORazepam 2 MG/ML VIAL IV PRN ×4 (15:02→20:14)
[2022-03-18] MEDS: levETIRAcetam 500 MG TAB PO SCH (21:39)
[2022-03-18] MEDS: LORazepam 2 MG/ML VIAL IV PRN (21:40)
[2022-03-19] MEDS: POTASSIUM CHLORIDE ER 20 MEQ TAB PO SCH ×2 (00:27→05:22)
[2022-03-19 07:56] LABS: Basophils % (Auto) 0.4 % (0.0-1.8); Eosinophils % (Auto) 0.1 % (0.0-4.3); Hematocrit 37.7 % (35.5-45.6); Hemoglobin 12.8 gm/dl (11.8-15.2); Lymphocytes % (Auto) 13.7 % (13.4-35.0); Mean Corpuscular HGB Conc 34 % (32-34); Mean Corpuscular Volume 102 fl (84-94); Monocytes # (Auto) 0.7 K/mm3 (0.0-0.8); Monocytes % (Auto) 8.8 % (0.0-7.3); Red Cell Distribution Width 13.8 % (13.2-15.2)
[2022-03-19 07:58] LABS: Alanine Aminotransferase 122 units/L (7-56); Albumin 3.6 g/dL (3.9-5); Blood Urea Nitrogen 4 mg/dL (9-20); Calcium 9.1 mg/dL (8.4-10.2); Chol/HDL Ratio 3.15 %; HDL Cholesterol 73 mg/dL (40-59); Hemolysis Index 10; LDL Cholesterol,Direct 116 mg/dL (50-130)
--- NOTE | 2022-03-19 08:06 | Progress Note ---
Assessment and Plan Assessment and plan: --Acute CVA; ruled out Neuro extensive neuro work-up reviewed No evidence of acute CVA Neurochecks, fall precautions Aspirin 325 mg p.o. daily Unable to give statin, due to transaminitis Physical therapy and Occupational Therapy Evaluation and treatment, discharge needs Speech therapy evaluation and treatment Cardiac diet if patient passes the swallow test --History of left MCA territory stroke, with right-sided weakness concern for seizure event Extensive neuro work-up did not show any acute/new events Acute CVA ruled out --History of traumatic brain injury, Probably because of seizures Seizure precautions Do not drive --History of hyponatremia; Improved monitor electrolytes --Hypokalemia; replenished with KCl Monitor electrolytes --Hypophosphatemia; Replenish per protocol with K-Phos Monitor electrolytes -Thrombocytopenia; Probably secondary to alcoholic liver disease Closely monitor -GERD: Protonix, supportive care -- History of seizure disorder; Seizure precautions Resume home antiepileptic medications Neuro work-up, EEG -- Transaminitis/acute hepatitis/alcohol hepatitis Check hepatitis panel Probably secondary to alcohol Closely monitor Abdominal ultrasound, GI evaluation if needed --Ongoing tobacco use; Smoking cessation counseling when patient is more alert and awake And stable, nicotine patch as needed - History of chronic alcohol use; Counseling advised to quit alcohol intake Alcohol rehabilitation --Alcohol withdrawal symptoms; Initiate CIWA protocol , --DVT prophylaxis ; Subcu Lovenox advanced care planning; We will closely monitor the patient and adjust the management as needed Follow neurology evaluation and recommendations History Interval history: I have seen and examined the patient at the bedside Patient's chart and medications reviewed No new events reported by the nursing Patient had extensive neuro work-up Vital signs noted Hospitalist Physical - Constitutional Vitals: Temp Pulse Resp BP Pulse Ox 99.0 F 100 H 18 122/90 93 03/19/22 00:33 03/19/22 00:33 03/19/22 00:33 03/19/22 00:33 03/19/22 00:33 General appearance: Present: mild distress, well-nourished, other (Dysarthria) - EENT Eyes: Present: PERRL, EOM intact - Neck Neck: Present: supple, normal ROM - Respiratory Respiratory effort: normal Respiratory: bilateral: diminished, negative: rales, rhonchi, wheezing - Cardiovascular Rhythm: regular Heart Sounds: Present: S1 & S2 - Extremities Extremities: no ischemia, No edema - Abdominal General gastrointestinal: soft, non-tender, non-distended, normal bowel sounds - Integumentary Integumentary: Present: clear, warm - Psychiatric Psychiatric: appropriate mood/affect, other (Minimally communicative) - Neurologic Neurologic: moves all extremities (Old CVA with residual dysarthria, right-sided weakness) HEART Score - HEART Score Troponin: Troponin T < 0.010 ng/mL (0.00-0.029) 03/18/22 08:14 Results - Labs CBC & Chem 7: 03/19/22 07:04 03/19/22 07:04 Labs: Laboratory Last Values WBC 6.0 K/mm3 (4.5-11.0) 03/18/22 08:14 RBC 3.45 M/mm3 (3.65-5.03) L 03/18/22 08:14 Hgb 12.2 gm/dl (11.8-15.2) 03/18/22 08:14 Hct 35.3 % (35.5-45.6) L 03/18/22 08:14 MCV 102 fl (84-94) H 03/18/22 08:14 MCH 35 pg (28-32) H 03/18/22 08:14 MCHC 35 % (32-34) H 03/18/22 08:14 RDW 13.9 % (13.2-15.2) 03/18/22 08:14 Plt Count 126 K/mm3 (140-440) L 03/18/22 08:14 Lymph % (Auto) 13.8 % (13.4-35.0) 03/18/22 08:14 [place] % (Auto) 8.8 % (0.0-7.3) H 03/19/22 07:04 Eos % (Auto) 0.1 % (0.0-4.3) 03/19/22 07:04 Baso % (Auto) 0.3 % (0.0-1.8) 03/18/22 08:14 Lymph # (Auto) 0.8 K/mm3 (1.2-5.4) L 03/18/22 08:14 [place] # (Auto) 0.7 K/mm3 (0.0-0.8) 03/19/22 07:04 Eos # (Auto) 0.0 K/mm3 (0.0-0.4) 03/19/22 07:04 Baso # (Auto) 0.0 K/mm3 (0.0-0.1) 03/19/22 07:04 Seg Neutrophils % 77.0 % (40.0-70.0) H 03/19/22 07:04 Seg Neutrophils # 5.8 K/mm3 (1.8-7.7) 03/19/22 07:04 PT 12.6 Sec. (12.2-14.9) 03/18/22 08:14 INR 0.86 (0.87-1.13) L 03/18/22 08:14 APTT 29.5 Sec. (24.2-36.6) 03/18/22 08:14 Thrombin Time 16.6 Sec. (15.1-19.6) 03/18/22 08:14 Sodium 137 mmol/L (137-145) 03/19/22 07:04 Potassium 2.3 mmol/L (3.6-5.0) L* 03/18/22 08:14 Chloride 90.3 mmol/L (98-107) L 03/19/22 07:04 Carbon Dioxide 27 mmol/L (22-30) 03/19/22 07:04 Anion Gap 23 mmol/L 03/19/22 07:04 BUN 4 mg/dL (9-20) L 03/19/22 07:04 Creatinine 0.4 mg/dL (0.8-1.3) L 03/18/22 08:14 Estimated GFR > 60 ml/min 03/18/22 08:14 BUN/Creatinine Ratio 15 % 03/18/22 08:14 Glucose 110 mg/dL (75-100) H 03/19/22 07:04 Calcium 9.1 mg/dL (8.4-10.2) 03/19/22 07:04 Phosphorus 1.20 mg/dL (2.5-4.5) L 03/19/22 07:04 Magnesium 1.90 mg/dL (1.7-2.3) 03/19/22 07:04 Total Bilirubin 1.90 mg/dL (0.1-1.2) H 03/19/22 07:04 Direct Bilirubin 1.1 mg/dL (0-0.2) H 03/18/22 08:14 Indirect Bilirubin 0.6 mg/dL 03/18/22 08:14 AST 262 units/L (5-40) H 03/19/22 07:04 ALT 122 units/L (7-56) H 03/19/22 07:04 Alkaline Phosphatase 101 units/L (35-129) 03/19/22 07:04 Ammonia 36.0 umol/L (25-60) 03/19/22 07:04 Total Creatine Kinase 83 units/L (55-170) 03/18/22 08:14 CK-MB (CK-2) 1.7 ng/mL (0.0-4.0) 03/18/22 08:14 CK-MB (CK-2) Rel Index 2.0 (0-4) 03/18/22 08:14 Troponin T < 0.010 ng/mL (0.00-0.029) 03/18/22 08:14 Total Protein 6.6 g/dL (6.3-8.2) 03/19/22 07:04 Albumin 3.6 g/dL (3.9-5) L 03/19/22 07:04 Albumin/Globulin Ratio 1.2 % 03/19/22 07:04 Triglycerides 123 mg/dL (2-149) 03/19/22 07:04 Cholesterol 230 mg/dL (50-199) H 03/19/22 07:04 LDL Cholesterol Direct 116 mg/dL (50-130) 03/19/22 07:04 HDL Cholesterol 73 mg/dL (40-59) H 03/19/22 07:04 Cholesterol/HDL Ratio 3.15 % 03/19/22 07:04 Plasma/Serum Alcohol < 0.01 % (0-0.07) 03/18/22 08:14 Active Medications - Current Medications Current Medications: Generic Name Dose Route Start Last Admin Trade Name Freq PRN Reason Stop Dose Admin Acetaminophen 650 mg 03/18/22 14:15 Acetaminophen 325 Mg Tab PO Q4H PRN Pain MILD(1-3)/Fever >100.5/JACOBSON Hydrocodone Bitart/Acetaminophen 2 each 03/18/22 14:15 Hydrocodone/Acetaminophen 5-325 Mg Tab PO Q6H PRN Pain, Moderate (4-6) Amlodipine Besylate 10 mg 03/19/22 10:00 Amlodipine 10 Mg Tab PO QDAY KEYONA Aspirin 325 mg 03/19/22 10:00 Aspirin 325 Mg Tab PO QDAY KEYONA Docusate Sodium 100 mg 03/18/22 14:15 Docusate Sodium 100 Mg Cap PO BID PRN Constipation Enoxaparin Sodium 40 mg 03/19/22 10:00 Enoxaparin 40 Mg/0.4 Ml Inj SUB-Q QDAY KEYONA Levetiracetam 500 mg 03/18/22 22:00 03/18/22 21:39 Levetiracetam 500 Mg Tab PO 500 mg BID KEYONA Administration Lorazepam 2 mg 03/18/22 20:14 03/18/22 21:40 Lorazepam 2 Mg/Ml Vial IV 2 mg Q1H PRN Administration CIWA-Ar 8-15 Lorazepam 4 mg 03/18/22 20:14 Lorazepam 2 Mg/Ml Vial IV Q1H PRN CIWA-Ar 16-25 Lorazepam 4 mg 03/18/22 20:14 Lorazepam 2 Mg/Ml Vial IV Q15MIN PRN CIWA-Ar >25 Naloxone HCl 0.1 mg 03/18/22 14:15 Naloxone 0.4 Mg/1 Ml Inj IV Q2MIN PRN Res Rate </= 8 or 02 SAT < 92% Nicotine 14 mg 03/19/22 10:00 Nicotine 14 Mg/24 Hr Patch TD QDAY KEYONA Ondansetron HCl 4 mg 03/18/22 14:15 Ondansetron 4 Mg/2 Ml Inj IV Q8H PRN Nausea And Vomiting Sodium Chloride 10 ml 03/18/22 22:00 03/18/22 21:39 Sodium Chloride 0.9% 10 Ml Flush Syringe IV 10 ml BID KEYONA Administration Sodium Chloride 10 ml 03/18/22 14:15 Sodium Chloride 0.9% 10 Ml Flush Syringe IV PRN PRN LINE FLUSH Zolpidem Tartrate 5 mg 03/18/22 14:15 Zolpidem 5 Mg Tab PO QHS PRN Insomnia Nutrition/Malnutrition Assess - Dietary Evaluation Nutrition/Malnutrition Findings: Nutrition Notes Start: 03/18/22 15:37 Freq: Status: Active Protocol: Document 03/18/22 15:37 RBYAN (Rec: 03/18/22 15:40 BRYAN [id number]) Nutrition Notes Need for Assessment generated from: LOS Initial or Follow up Assessment Height 5 ft 11 in Weight 77.111 kg [place] Body Weight (kg) 78.18 BMI 23.7 Weight change and time frame None reported at admission. Weight Status Appropriate Subjective/Other Information RD consult for LOS assessment.
[2022-03-19 08:07] LABS: BUN/Creatinine Ratio 10
[2022-03-19 09:16] LABS: Platelet Count 135 K/mm3 (140-440)
[2022-03-19] MEDS: LORazepam 2 MG/ML VIAL IV PRN ×3 (09:45→21:31)
--- NOTE | 2022-03-19 10:31 | Electrocardiograph Report ---
[facility] Test Date: 2022-03-18 Test Time: 10:29:11 Pat Name: MARTELL MARCELINO Department: Room: A453 Gender: M General Operations Agent: MALINDA : 1965 Requested By: NOLBERTO MAXWELL Order Number: [id number] Reading MD: Hany Laws Measurements Intervals [place] Rate: 109 P: 73 SC: 169 QRS: -5 QRSD: 89 T: -27 QT: 351 QTc: 472 Interpretive Statements Sinus tachycardia Repol abnrm suggests ischemia, anterolateral No previous ECG available for comparison Electronically Signed On 03-19-2022 10:30:59 EDT by Hany Laws
[2022-03-19] MEDS ORDERED: POTASSIUM PHOSPHATE 45 MMOL in SODIUM CHLORIDE 0.9% 500 ML 500 ML IV ONE (11:00)
[2022-03-19] MEDS ORDERED: POTASSIUM CHLORIDE ER 20 MEQ TAB PO SCH (11:00)
--- NOTE | 2022-03-19 11:14 | Magnetic Resonance Report ---
MR brain wo con INDICATION / CLINICAL INFORMATION: Acute CVA, UNSTEADY GAIT, ELVIRA. LEG WEAKNESS PATIENT GIVEN ATIVAN PRIOR TO MRI AND CONTINUED TO MOVE, BEST POSSIBLE EXAM, AMS. TECHNIQUE: Multiplanar, multisequence MR images of the brain were obtained. CT head 07/02/[address] head from COMPARISON: None available. FINDINGS: INTRACRANIAL: Extensive encephalomalacia in the left frontal and left lateral temporal lobe which rel ateively spares the insula and demonstrates extensive hemosiderin staining. There is also a punctate focus of hemosiderin seen in the medial left lateral temporal lobe. No restricted diffusion. No hemor rhage. Mild exvacuodilatation of the lateral ventricles related to volume loss. No hydrocephalus. No extra-axial collection. No mass. No herniation. Major intracranial vascular flow voids are preserved . ORBITS: No significant abnormality of visualized orbits. SINUSES / MASTOIDS: Within mucosal thickening is present in the paranasal sinuses. ADDITIONAL FINDINGS: None. IMPRESSION: 1. No acute intracranial abnormality. 2. Unchanged extensive encephalomalacia with associated hemosiderin in the left frontal and left late ral temporal lobe. Signer Name: Misha Aaron MD Signed: 03/19/2022 11:08 AM Workstation Name: [id number]
[2022-03-19] MEDS: levETIRAcetam 500 MG TAB PO SCH ×2 (12:11→22:20)
[2022-03-19] MEDS: NICOTINE 14 MG/24 HR PATCH TD SCH (12:11)
[2022-03-19] MEDS: ASPIRIN 325 MG TAB PO SCH (12:11)
[2022-03-19] MEDS: amLODIPine 10 MG TAB PO SCH (12:16)
[2022-03-19] MEDS: ENOXAPARIN 40 MG/0.4 ML INJ SUB-Q SCH (12:16)
--- NOTE | 2022-03-19 15:29 | Consultation ---
History of Present Illness Consult date: 03/19/22 Reason for Consult: Stroke Chief complaint: Weakness, Speech Difficulty, Confusion History of present illness: 56 yo male with seizure d/o, left mca territory stroke, tbi, hypertension, alcohol abuse, who presents with spech difficulty with right sided weakness. MR Brain reveals no acute infarction. Patient is not able to provide any clinical history secondary to aphasia. In the ED, patient had received Keppra 2 grams iv x1 dose and was continued on home regimen of Keppra 500 mg bid. Past History Past Medical History: hypertension, seizures, other (Traumatic brain injury) Past Surgical History: No surgical history Social history: smoking, alcohol abuse Family history: no significant family history Medications and Allergies Allergies Allergy/AdvReac Type Severity Reaction Status Date / Time No Known Allergies Allergy Verified 03/18/22 07:50 Home Medications Medication Instructions Recorded Confirmed Last Taken Type levETIRAcetam [Keppra TAB] 500 mg PO BID #60 tablet 07/02/20 03/18/22 Unknown Rx Amlodipine Besylate [Norvasc] 10 mg PO QDAY 03/18/22 03/18/22 Unknown History Meloxicam [Mobic] 15 mg PO QDAY 03/18/22 03/18/22 Unknown History chlordiazePOXIDE [Librium] 12.5 mg PO QID 03/18/22 03/18/22 Unknown History Active Meds: Active Medications Acetaminophen (Acetaminophen 325 Mg Tab) 650 mg PO Q4H PRN PRN Reason: Pain MILD(1-3)/Fever >100.5/JACOBSON Hydrocodone Bitart/Acetaminophen (Hydrocodone/Acetaminophen 5-325 Mg Tab) 2 each PO Q6H PRN PRN Reason: Pain, Moderate (4-6) Amlodipine Besylate (Amlodipine 10 Mg Tab) 10 mg PO QDAY [facility] Last Admin: 03/19/22 12:16 Dose: 10 mg Aspirin (Aspirin 325 Mg Tab) 325 mg PO QDAY [facility] Last Admin: 03/19/22 12:11 Dose: 325 mg Docusate Sodium (Docusate Sodium 100 Mg Cap) 100 mg PO BID PRN PRN Reason: Constipation Last Admin: 03/19/22 12:12 Dose: 100 mg Enoxaparin Sodium (Enoxaparin 40 Mg/0.4 Ml Inj) 40 mg SUB-Q QDAY [facility] Last Admin: 03/19/22 12:16 Dose: 40 mg Potassium Phosphate 45 mmol/ (Sodium Chloride) 515 mls @ 85 mls/hr IV ONCE ONE Stop: 03/19/22 17:03 Last Admin: 03/19/22 12:37 Dose: 85 mls/hr Levetiracetam (Levetiracetam 500 Mg Tab) 1,000 mg PO BID [facility] Lorazepam (Lorazepam 2 Mg/Ml Vial) 2 mg IV Q1H PRN PRN Reason: CIWA-Ar 8-15 Last Admin: 03/19/22 09:45 Dose: 2 mg Lorazepam (Lorazepam 2 Mg/Ml Vial) 4 mg IV Q1H PRN PRN Reason: CIWA-Ar 16-25 Lorazepam (Lorazepam 2 Mg/Ml Vial) 4 mg IV Q15MIN PRN PRN Reason: CIWA-Ar >25 Naloxone HCl (Naloxone 0.4 Mg/1 Ml Inj) 0.1 mg IV Q2MIN PRN PRN Reason: Res Rate </= 8 or 02 SAT < 92% Nicotine (Nicotine 14 Mg/24 Hr Patch) 14 mg TD QDAY [facility] Last Admin: 03/19/22 12:11 Dose: 14 mg Ondansetron HCl (Ondansetron 4 Mg/2 Ml Inj) 4 mg IV Q8H PRN PRN Reason: Nausea And Vomiting Sodium Chloride (Sodium Chloride 0.9% 10 Ml Flush Syringe) 10 ml IV BID [facility] Last Admin: 03/19/22 12:16 Dose: 10 ml Sodium Chloride (Sodium Chloride 0.9% 10 Ml Flush Syringe) 10 ml IV PRN PRN PRN Reason: LINE FLUSH Zolpidem Tartrate (Zolpidem 5 Mg Tab) 5 mg PO QHS PRN PRN Reason: Insomnia Review of Systems ROS unobtainable: due to mental status Physical Examination - Vital Signs Vital Signs: Vital Signs Temp 98.9 F 03/18/22 08:33 - Physical Exam Narrative exam: Gen: nad; Head: normocephalic; Eyes: no gaze deviation; no ptosis; ENT: minimal vocalization; CVS: warm and well-perfused; Pulm: no respiratory distress; GI: appears non-distended; Ext: no cyanosis appreciated at distal extremities; Skin: no acute rash at distal extremities; Heme: no pathologic ecchymosis appreciated at distal extremities; Neuro: alert, mixed aphasia, CN 2 - PRRL, pt has delayed blink to stimuli at bilateral visual castro, CN 3, 4, 6 - no gaze deviation, CN 5 / CN 7 - spontaneous blink noted, CN 8 - hearing grossly intact buto/w not cooperative, CN 9, 10, 11, 12 - pt cannot cooperate due to aphasia; Motor - at least 2/5 at all exts; Sensory - moves all exts to tactile stimuli, Cerebellar - cannot cooperate due to aphasia, Gait - deferred secondary to fall risk; Results - Laboratory Findings CBC and BMP: 03/19/22 07:04 03/19/22 07:04 Abnormal Lab Findings: Abnormal Labs 03/18/22 03/18/22 03/18/22 08:14 08:14 08:14 RBC 3.45 L Hct 35.3 L MCV 102 H MCH 35 H MCHC 35 H Plt Count 126 L [place] % (Auto) 13.4 H Lymph # (Auto) 0.8 L Seg Neutrophils % 72.3 H INR 0.86 L Sodium 132 L Potassium 2.3 L* Chloride 82.0 L BUN 6 L Creatinine 0.4 L Glucose POC Glucose Phosphorus Total Bilirubin Direct Bilirubin AST ALT Albumin Cholesterol HDL Cholesterol 03/18/22 03/19/22 03/19/22 08:14 07:04 07:04 RBC Hct MCV 102 H MCH 35 H MCHC Plt Count 135 L [place] % (Auto) 8.8 H Lymph # (Auto) 1.0 L Seg Neutrophils % 77.0 H INR Sodium Potassium 2.9 L* D Chloride 90.3 L BUN 4 L Creatinine 0.4 L Glucose 110 H POC Glucose Phosphorus 1.20 L Total Bilirubin 1.70 H 1.90 H Direct Bilirubin 1.1 H AST 371 H 262 H ALT 140 H 122 H Albumin 3.5 L 3.6 L Cholesterol 230 H HDL Cholesterol 73 H 03/19/22 08:08 RBC Hct MCV MCH MCHC Plt Count [place] % (Auto) Lymph # (Auto) Seg Neutrophils % INR Sodium Potassium Chloride BUN Creatinine Glucose POC Glucose 106 H Phosphorus Total Bilirubin Direct Bilirubin AST ALT Albumin Cholesterol HDL Cholesterol Assessment and Plan 56 yo male with seizure d/o, left mca territory stroke, tbi, hypertension, al cohol abuse, who presents with speech difficulty with right sided weakness. Concern for a seizure event. 1. Seizure disorder - increased (order placed) keppra from 500 bid to 1000 mg bid; seizure precautions and seizure restrictions (no driving, operation of heavy machinery, self-bath/climb/cook/swim, or supervisory role, until cleared by a neurologist); maintain eunatremia/eumagnesemia; aggressive treatment of underlying infectious/infalmmatory/metabolic/toxic triggers per primary team. Followup with Neurology in 4 weeks. 2. Alcohol Abuse/ Withdrawal - cwa per primary team. 3. Hypertension - aim for normotension. 4. History of Completed Stroke - if true, antiplatelet/statin therapy if no contraindications; o/w if L MCA territory injury is due to TBI, avoid antiplatelet or statin thearpy.. 5. TBI (sequelae) - monitor clinically. 6. No further acute neurologic workup indicated at present. Neurology will signoff. Grady Sierra MD Neurology
[2022-03-20] MEDS: LORazepam 2 MG/ML VIAL IV PRN (09:24)
[2022-03-20] MEDS: ASPIRIN 325 MG TAB PO SCH (10:48)
[2022-03-20] MEDS: NICOTINE 14 MG/24 HR PATCH TD SCH (10:48)
[2022-03-20] MEDS: amLODIPine 10 MG TAB PO SCH (10:48)
[2022-03-20] MEDS: ENOXAPARIN 40 MG/0.4 ML INJ SUB-Q SCH (10:48)
[2022-03-20] MEDS: levETIRAcetam 500 MG TAB PO SCH ×2 (10:49→22:07)
--- NOTE | 2022-03-20 17:30 | Progress Note ---
Assessment and Plan Assessment and plan: --Acute CVA; ruled out Neuro extensive neuro work-up reviewed No evidence of acute CVA Neurochecks, fall precautions Aspirin 325 mg p.o. daily Unable to give statin, due to transaminitis Physical therapy and Occupational Therapy Evaluation and treatment, discharge needs Speech therapy evaluation and treatment Cardiac diet if patient passes the swallow test --History of left MCA territory stroke, with right-sided weakness concern for seizure event Extensive neuro work-up did not show any acute/new events Acute CVA ruled out --History of traumatic brain injury, Probably because of seizures Seizure precautions Do not drive --History of hyponatremia; Improved monitor electrolytes --Hypokalemia; replenished with KCl Monitor electrolytes --Hypophosphatemia; Replenish per protocol with K-Phos Monitor electrolytes -Thrombocytopenia; Probably secondary to alcoholic liver disease Closely monitor -GERD: Protonix, supportive care -- History of seizure disorder; Seizure precautions Resume home antiepileptic medications Neuro work-up, EEG -- Transaminitis/acute hepatitis/alcohol hepatitis Check hepatitis panel Probably secondary to alcohol Closely monitor Abdominal ultrasound, GI evaluation if needed --Ongoing tobacco use; Smoking cessation counseling when patient is more alert and awake And stable, nicotine patch as needed - History of chronic alcohol use; Counseling advised to quit alcohol intake Alcohol rehabilitation --Alcohol withdrawal symptoms; Initiate CIWA protocol , --DVT prophylaxis ; Subcu Lovenox advanced care planning; I discussed with patient's sister at the bedside, patient's diagnosis, patient's prognosis, I discussed patient's treatment plan I discussed tests and reports, I discussed risks and consequences of prolonged chronic alcohol use. I discussed with the patient and his sister About alcohol rehabilitation and detoxification, I discussed CIWA protocol for the patient's alcohol withdrawal symptoms I discussed the restraints for patient's safety. They had many questions. I answered all of them I spent total 31 minutes. Preventive counseling; 15 minutes Smoking cessation counseling done, risks and consequences of tobacco use, Risks of cancer, coronary artery disease, bronchitis emphysema explained to the patient Answered all the questions, I spent 15 minutes counseling I also counseled the importance of quitting alcohol intake Verbalized understanding We will closely monitor the patient and adjust the management as needed Follow neurology evaluation and recommendations DC planning per case management Discharge home with family when medically stable with home health. History Interval history: I have seen and examined the patient at the bedside Patient's chart and medications reviewed Patient has mild tremulousness and agitation requiring restraints on [facility] protocol Minimally communicative Hospitalist Physical - Constitutional Vitals: Temp Pulse Resp BP Pulse Ox 98.3 F 108 H 16 121/81 97 03/20/22 11:06 03/20/22 11:06 03/20/22 11:06 03/20/22 11:06 03/20/22 11:06 General appearance: Present: mild distress, well-nourished, other (Dysarthria) - EENT Eyes: Present: PERRL, EOM intact - Neck Neck: Present: supple, normal ROM - Respiratory Respiratory effort: normal Respiratory: bilateral: diminished, negative: rales, rhonchi, wheezing - Cardiovascular Rhythm: regular Heart Sounds: Present: S1 & S2 - Extremities Extremities: no ischemia, No edema - Abdominal General gastrointestinal: soft, non-tender, non-distended, normal bowel sounds - Integumentary Integumentary: Present: clear, warm - Psychiatric Psychiatric: agitated, other - Neurologic Neurologic: moves all extremities (Residual weakness) HEART Score - HEART Score Troponin: Troponin T < 0.010 ng/mL (0.00-0.029) 03/18/22 08:14 Results - Labs CBC & Chem 7: 03/19/22 07:04 03/19/22 07:04 Labs: Laboratory Last Values WBC 7.6 K/mm3 (4.5-11.0) 03/19/22 07:04 RBC 3.70 M/mm3 (3.65-5.03) 03/19/22 07:04 Hgb 12.8 gm/dl (11.8-15.2) 03/19/22 07:04 Hct 37.7 % (35.5-45.6) 03/19/22 07:04 MCV 102 fl (84-94) H 03/19/22 07:04 MCH 35 pg (28-32) H 03/19/22 07:04 MCHC 34 % (32-34) 03/19/22 07:04 RDW 13.8 % (13.2-15.2) 03/19/22 07:04 Plt Count 135 K/mm3 (140-440) L 03/19/22 07:04 Lymph % (Auto) 13.7 % (13.4-35.0) 03/19/22 07:04 [place] % (Auto) 8.8 % (0.0-7.3) H 03/19/22 07:04 Eos % (Auto) 0.1 % (0.0-4.3) 03/19/22 07:04 Baso % (Auto) 0.4 % (0.0-1.8) 03/19/22 07:04 Lymph # (Auto) 1.0 K/mm3 (1.2-5.4) L 03/19/22 07:04 [place] # (Auto) 0.7 K/mm3 (0.0-0.8) 03/19/22 07:04 Eos # (Auto) 0.0 K/mm3 (0.0-0.4) 03/19/22 07:04 Baso # (Auto) 0.0 K/mm3 (0.0-0.1) 03/19/22 07:04 Seg Neutrophils % 77.0 % (40.0-70.0) H 03/19/22 07:04 Seg Neutrophils # 5.8 K/mm3 (1.8-7.7) 03/19/22 07:04 PT 12.6 Sec. (12.2-14.9) 03/18/22 08:14 INR 0.86 (0.87-1.13) L 03/18/22 08:14 APTT 29.5 Sec. (24.2-36.6) 03/18/22 08:14 Thrombin Time 16.6 Sec. (15.1-19.6) 03/18/22 08:14 Sodium 137 mmol/L (137-145) 03/19/22 07:04 Potassium 2.9 mmol/L (3.6-5.0) L* D 03/19/22 07:04 Chloride 90.3 mmol/L (98-107) L 03/19/22 07:04 Carbon Dioxide 27 mmol/L (22-30) 03/19/22 07:04 Anion Gap 23 mmol/L 03/19/22 07:04 BUN 4 mg/dL (9-20) L 03/19/22 07:04 Creatinine 0.4 mg/dL (0.8-1.3) L 03/19/22 07:04 Estimated GFR > 60 ml/min 03/19/22 07:04 BUN/Creatinine Ratio 10 % 03/19/22 07:04 Glucose 110 mg/dL (75-100) H 03/19/22 07:04 POC Glucose 130 mg/dL (70-105) H 03/19/22 16:14 Calcium 9.1 mg/dL (8.4-10.2) 03/19/22 07:04 Phosphorus 1.20 mg/dL (2.5-4.5) L 03/19/22 07:04 Magnesium 1.90 mg/dL (1.7-2.3) 03/19/22 07:04 Total Bilirubin 1.90 mg/dL (0.1-1.2) H 03/19/22 07:04 Direct Bilirubin 1.1 mg/dL (0-0.2) H 03/18/22 08:14 Indirect Bilirubin 0.6 mg/dL 03/18/22 08:14 AST 262 units/L (5-40) H 03/19/22 07:04 ALT 122 units/L (7-56) H 03/19/22 07:04 Alkaline Phosphatase 101 units/L (35-129) 03/19/22 07:04 Ammonia 36.0 umol/L (25-60) 03/19/22 07:04 Total Creatine Kinase 83 units/L (55-170) 03/18/22 08:14 CK-MB (CK-2) 1.7 ng/mL (0.0-4.0) 03/18/22 08:14 CK-MB (CK-2) Rel Index 2.0 (0-4) 03/18/22 08:14 Troponin T < 0.010 ng/mL (0.00-0.029) 03/18/22 08:14 Total Protein 6.6 g/dL (6.3-8.2) 03/19/22 07:04 Albumin 3.6 g/dL (3.9-5) L 03/19/22 07:04 Albumin/Globulin Ratio 1.2 % 03/19/22 07:04 Triglycerides 123 mg/dL (2-149) 03/19/22 07:04 Cholesterol 230 mg/dL (50-199) H 03/19/22 07:04 LDL Cholesterol Direct 116 mg/dL (50-130) 03/19/22 07:04 HDL Cholesterol 73 mg/dL (40-59) H 03/19/22 07:04 Cholesterol/HDL Ratio 3.15 % 03/19/22 07:04 Plasma/Serum Alcohol < 0.01 % (0-0.07) 03/18/22 08:14 Sánchez/IV: Voiding Method Toilet Active Medications - Current Medications Current Medications: Generic Name Dose Route Start Last Admin Trade Name Freq PRN Reason Stop Dose Admin Acetaminophen 650 mg 03/18/22 14:15 Acetaminophen 325 Mg Tab PO Q4H PRN Pain MILD(1-3)/Fever >100.5/JACOBSON Hydrocodone Bitart/Acetaminophen 2 each 03/18/22 14:15 Hydrocodone/Acetaminophen 5-325 Mg Tab PO Q6H PRN Pain, Moderate (4-6) Amlodipine Besylate 10 mg 03/19/22 10:00 03/19/22 12:16 Amlodipine 10 Mg Tab PO 10 mg QDAY [facility] Administration Aspirin 325 mg 03/19/22 10:00 03/19/22 12:11 Aspirin 325 Mg Tab PO 325 mg QDAY [facility] Administration Docusate Sodium 100 mg 03/18/22 14:15 03/19/22 12:12 Docusate Sodium 100 Mg Cap PO 100 mg BID PRN Administration Constipation Enoxaparin Sodium 40 mg 03/19/22 10:00 03/19/22 12:16 Enoxaparin 40 Mg/0.4 Ml Inj SUB-Q 40 mg QDAY [facility]AN Administration Levetiracetam 1,000 mg 03/19/22 22:00 03/19/22 22:20 Levetiracetam 500 Mg Tab PO 1,000 mg BID [facility] Administration Lorazepam 2 mg 03/18/22 20:14 03/20/22 09:24 Lorazepam 2 Mg/Ml Vial IV 2 mg Q1H PRN Administration CIWA-Ar 8-15 Lorazepam 4 mg 03/18/22 20:14 Lorazepam 2 Mg/Ml Vial IV Q1H PRN CIWA-Ar 16-25 Lorazepam 4 mg 03/18/22 20:14 Lorazepam 2 Mg/Ml Vial IV Q15MIN PRN CIWA-Ar >25 Naloxone HCl 0.1 mg 03/18/22 14:15 Naloxone 0.4 Mg/1 Ml Inj IV Q2MIN PRN Res Rate </= 8 or 02 SAT < 92% Nicotine 14 mg 03/19/22 10:00 03/19/22 12:11 Nicotine 14 Mg/24 Hr Patch TD 14 mg QDAY [facility] Administration Ondansetron HCl 4 mg 03/18/22 14:15 Ondansetron 4 Mg/2 Ml Inj IV Q8H PRN Nausea And Vomiting Sodium Chloride 10 ml 03/18/22 22:00 03/19/22 22:48 Sodium Chloride 0.9% 10 Ml Flush Syringe IV 10 ml BID [facility] Administration Sodium Chloride 10 ml 03/18/22 14:15 Sodium Chloride 0.9% 10 Ml Flush Syringe IV PRN PRN LINE FLUSH Zolpidem Tartrate 5 mg 03/18/22 14:15 Zolpidem 5 Mg Tab PO QHS PRN Insomnia Nutrition/Malnutrition Assess - Dietary Evaluation Nutrition/Malnutrition Findings: Nutrition Notes Start: 03/18/22 15:37 Freq: Status: Active Protocol: Document 03/19/22 12:23 BRYAN (Rec: 03/19/22 12:58 BRYAN [id number]) Nutrition Notes Need for Assessment generated from: MD Order,luggage repairer,MST Current Diagnosis Hypertension,Stroke Other Pertinent Diagnosis Seizure, Hypokalemia, GERD, EtOH Hepatityis. Current Diet Cardiac Diet (since D 03/18). Labs/Tests 03/19: K 2.9, Cl 90.3, BUN 4, Crea 0.4, Glu 110, Phos 1.2. Pertinent Medications 03/19: KCl 40 mEq, others nutritionally unremarkable. Height 5 ft 11 in Weight 77.11 kg [place] Body Weight (kg) 78.18 BMI 23.7 Weight change and time frame 0.001 Kg body weight loss in 1 day reported. Weight Status Appropriate Subjective/Other Information RD consult for risk of malnutrition and Dietary Supplementation assessments. No reports available on Pt's PO intake at the time, will assess at F/U. Last visit on 11/02/2021, Pt's body weight was 86.183 Kg, and BMI: 27.3 Kg/m2. Pt loss 9 .073 Kg (19.9 lb) 10.5% in 4 months. I will not prescribe Dietary Supplements at this time, will assess at F/U. Bedside swallow screen passed on 03/18, according to Swallow Screen History notes. Pt is on Room Air, O2 saturation @ 93%, according to Physical Assessment History notes. Pt has missing teeth, according to Physical Assessment History notes. Pt shows no signs of concern for risk of malnutrition at the time, according to Physical Assessment History notes. Percent of energy/protein needs met: Prescribed Cardiac Diet provides for energy/protein needs (2,230 Kcal/85 g) during LOS. Burn Absent Trauma Absent GI Symptoms None Food Allergy No Skin Integrity/Comment Assessment WNL. Minimum of two criteria No Interpretation of Weight Loss (non- 10% in 6 months severe) Protein-Calorie Malnutrition N\A #1 Nutrition Diagnosis No nutrition diagnosis at this time Comments: Will assess Pt's PO intake of meals, and need for ONS at F/U . Is patient on ventilator? No Is Patient Ambulatory and/or Out of Bed No REE-([facility]-confined to bed) 1952.316 Kcal/Kg value to use for calculation 28 Approximate Energy Requirements Using 2159 kcal/Kg Calculation Used for Recommendations Kcal/kg Additional Notes Protein: 0.8-1 g/Kg ABW; 62-77 g/day. Fluids: 1 ml/Kcal, or as per MD. Nutrition Intervention Change Diet Order: Continue Cardiac Diet. Follow-Up By: 03/22/22 Additional Comments Continue monitoring food tolerance, %PO intake of meals , and BM.
[2022-03-20] MEDS: ZOLPIDEM 5 MG TAB PO PRN (22:07)
--- NOTE | 2022-03-21 07:48 | Progress Note ---
Assessment and Plan Assessment and plan: --Alcohol withdrawal . DC [facility] protocol , Restraint for safety as needed Ativan for agitation as needed Patient may need alcohol rehabilitation in stable Follow electrolytes and replenish as needed Patient also has history of seizure disorder on Keppra -- History of chronic alcohol use; Counseling advised to quit alcohol intake Alcohol rehabilitation -- History of seizure disorder; Seizure precautions Resume home Keppra medications Neuro work-up, EEG --Acute CVA; ruled out Extensive neuro work-up reviewed No evidence of acute CVA Neurochecks, fall precautions Aspirin 325 mg p.o. daily Unable to give statin, due to transaminitis Physical therapy and Occupational Therapy Evaluation and treatment, discharge needs Speech therapy evaluation and treatment Cardiac diet if patient passes the swallow test --Past history of left MCA territory stroke, with right-sided weakness concern for seizure event Extensive neuro work-up did not show any acute/new events Acute CVA ruled out --History of traumatic brain injury, Probably because of seizures Seizure precautions Do not drive --History of hyponatremia; Improved monitor electrolytes --Hypokalemia; replenished with KCl Monitor electrolytes --Hypophosphatemia; Replenish per protocol with K-Phos Monitor electrolytes -Thrombocytopenia; Probably secondary to alcoholic liver disease Closely monitor -GERD: Protonix, supportive care -- Transaminitis/acute hepatitis/alcohol hepatitis Probably secondary to alcohol Closely monitor Abdominal ultrasound, GI evaluation if needed --Ongoing tobacco use; Smoking cessation counseling when patient is more alert and awake And stable, nicotine patch as needed --DVT prophylaxis ; Subcu Lovenox advanced care planning; I discussed with patient's sister at the bedside, patient's diagnosis, patient's prognosis, I discussed patient's treatment plan I discussed tests and reports, I discussed risks and consequences of prolonged chronic alcohol use. I discussed with the patient and his sister About alcohol rehabilitation and detoxification, I discussed [facility] protocol for the patient's alcohol withdrawal symptoms I discussed the restraints for patient's safety. They had many questions. I answered all of them I spent total 31 minutes. Preventive counseling; 15 minutes Smoking cessation counseling done, risks and consequences of tobacco use, Risks of cancer, coronary artery disease, bronchitis emphysema explained to the patient Answered all the questions, I spent 15 minutes counseling I also counseled the importance of quitting alcohol intake Verbalized understanding Continue PT OT Possible discharge in 1 to 2 days if stable. History Interval history: I have seen and examined the patient at the bedside Patient's chart and medications reviewed Patient is more alert and awake responding appropriately did not require much of Ativan last 24 hours Vital signs noted Hospitalist Physical - Constitutional Vitals: Temp Pulse Resp BP Pulse Ox 98.0 F 85 18 126/66 94 03/21/22 04:00 03/21/22 04:00 03/21/22 04:00 03/21/22 04:00 03/21/22 04:00 General appearance: Present: mild distress, well-nourished, other (Dysarthria) - EENT Eyes: Present: PERRL, EOM intact - Neck Neck: Present: supple, normal ROM - Respiratory Respiratory effort: normal Respiratory: bilateral: diminished, negative: rales, rhonchi, wheezing - Cardiovascular Rhythm: regular Heart Sounds: Present: S1 & S2 - Extremities Extremities: no ischemia, No edema - Abdominal General gastrointestinal: soft, non-tender, non-distended, normal bowel sounds - Integumentary Integumentary: Present: clear, warm - Psychiatric Psychiatric: cooperative - Neurologic Neurologic: moves all extremities, other (Residual weakness) HEART Score - HEART Score Troponin: Troponin T < 0.010 ng/mL (0.00-0.029) 03/18/22 08:14 Results - Labs CBC & Chem 7: 03/19/22 07:04 03/19/22 07:04 Labs: Laboratory Last Values WBC 7.6 K/mm3 (4.5-11.0) 03/19/22 07:04 RBC 3.70 M/mm3 (3.65-5.03) 03/19/22 07:04 Hgb 12.8 gm/dl (11.8-15.2) 03/19/22 07:04 Hct 37.7 % (35.5-45.6) 03/19/22 07:04 MCV 102 fl (84-94) H 03/19/22 07:04 MCH 35 pg (28-32) H 03/19/22 07:04 MCHC 34 % (32-34) 03/19/22 07:04 RDW 13.8 % (13.2-15.2) 03/19/22 07:04 Plt Count 135 K/mm3 (140-440) L 03/19/22 07:04 Lymph % (Auto) 13.7 % (13.4-35.0) 03/19/22 07:04 [place] % (Auto) 8.8 % (0.0-7.3) H 03/19/22 07:04 Eos % (Auto) 0.1 % (0.0-4.3) 03/19/22 07:04 Baso % (Auto) 0.4 % (0.0-1.8) 03/19/22 07:04 Lymph # (Auto) 1.0 K/mm3 (1.2-5.4) L 03/19/22 07:04 [place] # (Auto) 0.7 K/mm3 (0.0-0.8) 03/19/22 07:04 Eos # (Auto) 0.0 K/mm3 (0.0-0.4) 03/19/22 07:04 Baso # (Auto) 0.0 K/mm3 (0.0-0.1) 03/19/22 07:04 Seg Neutrophils % 77.0 % (40.0-70.0) H 03/19/22 07:04 Seg Neutrophils # 5.8 K/mm3 (1.8-7.7) 03/19/22 07:04 PT 12.6 Sec. (12.2-14.9) 03/18/22 08:14 INR 0.86 (0.87-1.13) L 03/18/22 08:14 APTT 29.5 Sec. (24.2-36.6) 03/18/22 08:14 Thrombin Time 16.6 Sec. (15.1-19.6) 03/18/22 08:14 Sodium 137 mmol/L (137-145) 03/19/22 07:04 Potassium 2.9 mmol/L (3.6-5.0) L* D 03/19/22 07:04 Chloride 90.3 mmol/L (98-107) L 03/19/22 07:04 Carbon Dioxide 27 mmol/L (22-30) 03/19/22 07:04 Anion Gap 23 mmol/L 03/19/22 07:04 BUN 4 mg/dL (9-20) L 03/19/22 07:04 Creatinine 0.4 mg/dL (0.8-1.3) L 03/19/22 07:04 Estimated GFR > 60 ml/min 03/19/22 07:04 BUN/Creatinine Ratio 10 % 03/19/22 07:04 Glucose 110 mg/dL (75-100) H 03/19/22 07:04 POC Glucose 130 mg/dL (70-105) H 03/19/22 16:14 Calcium 9.1 mg/dL (8.4-10.2) 03/19/22 07:04 Phosphorus 1.20 mg/dL (2.5-4.5) L 03/19/22 07:04 Magnesium 1.90 mg/dL (1.7-2.3) 03/19/22 07:04 Total Bilirubin 1.90 mg/dL (0.1-1.2) H 03/19/22 07:04 Direct Bilirubin 1.1 mg/dL (0-0.2) H 03/18/22 08:14 Indirect Bilirubin 0.6 mg/dL 03/18/22 08:14 AST 262 units/L (5-40) H 03/19/22 07:04 ALT 122 units/L (7-56) H 03/19/22 07:04 Alkaline Phosphatase 101 units/L (35-129) 03/19/22 07:04 Ammonia 36.0 umol/L (25-60) 03/19/22 07:04 Total Creatine Kinase 83 units/L (55-170) 03/18/22 08:14 CK-MB (CK-2) 1.7 ng/mL (0.0-4.0) 03/18/22 08:14 CK-MB (CK-2) Rel Index 2.0 (0-4) 03/18/22 08:14 Troponin T < 0.010 ng/mL (0.00-0.029) 03/18/22 08:14 Total Protein 6.6 g/dL (6.3-8.2) 03/19/22 07:04 Albumin 3.6 g/dL (3.9-5) L 03/19/22 07:04 Albumin/Globulin Ratio 1.2 % 03/19/22 07:04 Triglycerides 123 mg/dL (2-149) 03/19/22 07:04 Cholesterol 230 mg/dL (50-199) H 03/19/22 07:04 LDL Cholesterol Direct 116 mg/dL (50-130) 03/19/22 07:04 HDL Cholesterol 73 mg/dL (40-59) H 03/19/22 07:04 Cholesterol/HDL Ratio 3.15 % 03/19/22 07:04 Plasma/Serum Alcohol < 0.01 % (0-0.07) 03/18/22 08:14 Sánchez/IV: Voiding Method Condom Catheter Active Medications - Current Medications Current Medications: Generic Name Dose Route Start Last Admin Trade Name Freq PRN Reason Stop Dose Admin Acetaminophen 650 mg 03/18/22 14:15 Acetaminophen 325 Mg Tab PO Q4H PRN Pain MILD(1-3)/Fever >100.5/JACOBSON Hydrocodone Bitart/Acetaminophen 2 each 03/18/22 14:15 Hydrocodone/Acetaminophen 5-325 Mg Tab PO Q6H PRN Pain, Moderate (4-6) Amlodipine Besylate 10 mg 03/19/22 10:00 03/20/22 10:48 Amlodipine 10 Mg Tab PO 10 mg QDAY KEYONA Administration Aspirin 325 mg 03/19/22 10:00 03/20/22 10:48 Aspirin 325 Mg Tab PO 325 mg QDAY KEYONA Administration Docusate Sodium 100 mg 03/18/22 14:15 03/19/22 12:12 Docusate Sodium 100 Mg Cap PO 100 mg BID PRN Administration Constipation Enoxaparin Sodium 40 mg 03/19/22 10:00 03/20/22 10:48 Enoxaparin 40 Mg/0.4 Ml Inj SUB-Q 40 mg QDAY KEYONA Administration Levetiracetam 1,000 mg 03/19/22 22:00 03/20/22 22:07 Levetiracetam 500 Mg Tab PO 1,000 mg BID KEYONA Administration Lorazepam 2 mg 03/18/22 20:14 03/20/22 09:24 Lorazepam 2 Mg/Ml Vial IV 2 mg Q1H PRN Administration CIWA-Ar 8-15 Lorazepam 4 mg 03/18/22 20:14 Lorazepam 2 Mg/Ml Vial IV Q1H PRN CIWA-Ar 16-25 Lorazepam 4 mg 03/18/22 20:14 Lorazepam 2 Mg/Ml Vial IV Q15MIN PRN CIWA-Ar >25 Naloxone HCl 0.1 mg 03/18/22 14:15 Naloxone 0.4 Mg/1 Ml Inj IV Q2MIN PRN Res Rate </= 8 or 02 SAT < 92% Nicotine 14 mg 03/19/22 10:00 03/20/22 10:48 Nicotine 14 Mg/24 Hr Patch TD 14 mg QDAY KEYONA Administration Ondansetron HCl 4 mg 03/18/22 14:15 Ondansetron 4 Mg/2 Ml Inj IV Q8H PRN Nausea And Vomiting Sodium Chloride 10 ml 03/18/22 22:00 03/20/22 22:07 Sodium Chloride 0.9% 10 Ml Flush Syringe IV 10 ml BID KEYONA Administration Sodium Chloride 10 ml 03/18/22 14:15 Sodium Chloride 0.9% 10 Ml Flush Syringe IV PRN PRN LINE FLUSH Zolpidem Tartrate 5 mg 03/18/22 14:15 03/20/22 22:07 Zolpidem 5 Mg Tab PO 5 mg QHS PRN Administration Insomnia Nutrition/Malnutrition Assess - Dietary Evaluation Nutrition/Malnutrition Findings: Nutrition Notes Start: 03/18/22 15:37 Freq: Status: Active Protocol: Document 03/19/22 12:23 BRYAN (Rec: 03/19/22 12:58 BRYAN [id number]) Nutrition Notes Need for Assessment generated from: MD Order,resource specialist,[facility]ST Current Diagnosis Hypertension,Stroke Other Pertinent Diagnosis Seizure, Hypokalemia, GERD, EtOH Hepatityis. Current Diet Cardiac Diet (since D 03/18). Labs/Tests 03/19: K 2.9, Cl 90.3, BUN 4, Crea 0.4, Glu 110, Phos 1.2. Pertinent Medications 03/19: KCl 40 mEq, others nutritionally unremarkable. Height 5 ft 11 in Weight 77.11 kg [place] Body Weight (kg) 78.18 BMI 23.7 Weight change and time frame 0.001 Kg body weight loss in 1 day reported. Weight Status Appropriate Subjective/Other Information RD consult for risk of malnutrition and Dietary Supplementation assessments. No reports available on Pt's PO intake at the time, will assess at F/U. Last visit on 11/02/2021, Pt's body weight was 86.183 Kg, and BMI: 27.3 Kg/m2. Pt loss 9 .073 Kg (19.9 lb) 10.5% in 4 months. I will not prescribe Dietary Supplements at this time, will assess at F/U. Bedside swallow screen passed on 03/18, according to Swallow Screen History notes. Pt is on Room Air, O2 saturation @ 93%, according to Physical Assessment History notes. Pt has missing teeth, according to Physical Assessment History notes. Pt shows no signs of concern for risk of malnutrition at the time, according to Physical Assessment History notes. Percent of energy/protein needs met: Prescribed Cardiac Diet provides for energy/protein needs (2,230 Kcal/85 g) during LOS. Burn Absent Trauma Absent GI Symptoms None Food Allergy No Skin Integrity/Comment Assessment WNL. Minimum of two criteria No Interpretation of Weight Loss (non- 10% in 6 months severe) Protein-Calorie Malnutrition N\A #1 Nutrition Diagnosis No nutrition diagnosis at this time Comments: Will assess Pt's PO intake of meals, and need for ONS at F/U . Is patient on ventilator? No Is Patient Ambulatory and/or Out of Bed No REE-([facility]-confined to bed) 1952.316 Kcal/Kg value to use for calculation 28 Approximate Energy Requirements Using 2159 kcal/Kg Calculation Used for Recommendations Kcal/kg Additional Notes Protein: 0.8-1 g/Kg ABW; 62-77 g/day. Fluids: 1 ml/Kcal, or as per MD. Nutrition Intervention Change Diet Order: Continue Cardiac Diet. Follow-Up By: 03/22/22 Additional Comments Continue monitoring food tolerance, %PO intake of meals , and BM.
[2022-03-21] MEDS: levETIRAcetam 500 MG TAB PO SCH ×2 (09:59→22:05)
[2022-03-21] MEDS: amLODIPine 10 MG TAB PO SCH (09:59)
[2022-03-21] MEDS: NICOTINE 14 MG/24 HR PATCH TD SCH (09:59)
[2022-03-21] MEDS: ENOXAPARIN 40 MG/0.4 ML INJ SUB-Q SCH (09:59)
[2022-03-21] MEDS: ASPIRIN 325 MG TAB PO SCH (09:59)
[2022-03-21 13:16] LABS: Alanine Aminotransferase 111 units/L (7-56); Albumin 3.4 g/dL (3.9-5); Blood Urea Nitrogen 6 mg/dL (9-20); Calcium 9.2 mg/dL (8.4-10.2); Hemolysis Index 8
[2022-03-21 13:20] LABS: BUN/Creatinine Ratio 15
[2022-03-21] MEDS ORDERED: POTASSIUM CHLORIDE ER 20 MEQ TAB PO ONE (14:00)
[2022-03-21] MEDS: ZOLPIDEM 5 MG TAB PO PRN (22:05)
[2022-03-22 05:50] LABS: Alanine Aminotransferase 98 units/L (7-56); Albumin 2.9 g/dL (3.9-5); Blood Urea Nitrogen 6 mg/dL (9-20); Calcium 8.7 mg/dL (8.4-10.2); Hemolysis Index 5
[2022-03-22 05:59] LABS: BUN/Creatinine Ratio 20
[2022-03-22] MEDS: POTASSIUM CHLORIDE ER 20 MEQ TAB PO SCH ×3 (06:41→12:04)
--- NOTE | 2022-03-22 08:35 | Progress Note ---
Assessment and Plan Assessment and plan: --Alcohol withdrawal . DC [facility] protocol , Ativan as needed for agitation Supportive care, ambulate with assistance --Hyponatremia; resolved Closely monitor electrolytes --Hypokalemia; potassium 2.6 today; replenished with oral KCl 40 mEq every 4 hours x2 Maintenance dose of 20 mEq KCl daily[due to persistent hypokalemia] --Hypophosphatemia; Replenished, within normal range -- History of chronic alcohol use; Counseling advised to quit alcohol intake Alcohol rehabilitation Thiamine folic acid and multivitamins -- History of seizure disorder; No new episodes since admission ,seizure precautions Resume home Keppra medications, Neuro work-up, EEG Seizures probably alcohol-related --Acute CVA; ruled out Extensive neuro work-up reviewed No evidence of acute CVA Neurochecks, fall precautions Aspirin 325 mg p.o. daily Unable to give statin, due to transaminitis Physical therapy and Occupational Therapy Evaluation and treatment, discharge needs Speech therapy evaluation and treatment Cardiac diet if patient passes the swallow test --Past history of left MCA territory stroke, with residual right-sided weakness Extensive neuro work-up did not show any acute CVA Acute CVA ruled out --History of traumatic brain injury, Probably because of seizures Seizure precautions,Do not drive -Thrombocytopenia; Probably secondary to alcoholic liver disease Closely monitor -GERD: Protonix, supportive care -- Transaminitis/acute hepatitis/alcohol hepatitis Probably secondary to alcohol Transaminases trending down Strongly advised to quit alcohol intake --Ongoing tobacco use; Smoking cessation counseling when patient is more alert and awake And stable, nicotine patch as needed --DVT prophylaxis ; Subcu Lovenox advanced care planning; I discussed with patient's sister at the bedside, patient's diagnosis, patient's prognosis, I discussed patient's treatment plan I discussed tests and reports, I discussed risks and consequences of prolonged chronic alcohol use. I discussed with the patient and his sister About alcohol rehabilitation and detoxification, I discussed [facility] protocol for the patient's alcohol withdrawal symptoms I discussed the restraints for patient's safety. They had many questions. I answered all of them I spent total 31 minutes. Preventive counseling; 15 minutes Smoking cessation counseling done, risks and consequences of tobacco use, Risks of cancer, coronary artery disease, bronchitis emphysema explained to the patient Answered all the questions, I spent 15 minutes counseling I also counseled the importance of quitting alcohol intake Verbalized understanding Continue PT OT Possible discharge in 1 to 2 days if stable. Home with home health Patient advised rehabilitation Daily Hospital course; 03/21; patient is more alert and awake today, responding to simple questions appropriately Will try to hold off restraints if patient is stable, continue PT OT, will DC [facility] protocol IV Ativan as needed for agitation and withdrawal symptoms 03/22; severe hypokalemia, replenished with oral KCl patient feels better, out of bed to chair, continue thiamine folic acid multivitamin Possible discharge tomorrow with home health if stable History Interval history: I seen and examined the patient at the bedside Patient's chart and medications reviewed Patient is more alert and awake No agitation, no tremulousness, no aggression Patient is responding to simple questions appropriately Not restrained, not on [facility] protocol Vital signs noted Hospitalist Physical - Constitutional Vitals: Temp Pulse Resp BP Pulse Ox 97.9 F 81 18 133/97 97 03/22/22 07:39 03/22/22 07:39 03/22/22 07:39 03/22/22 07:39 03/22/22 07:39 General appearance: Present: no acute distress, well-nourished - EENT Eyes: Present: PERRL, EOM intact - Neck Neck: Present: supple, normal ROM - Respiratory Respiratory effort: normal Respiratory: bilateral: diminished, negative: rales, rhonchi, wheezing - Cardiovascular Rhythm: regular Heart Sounds: Present: S1 & S2 - Extremities Extremities: no ischemia, No edema - Abdominal General gastrointestinal: soft, non-tender, non-distended, normal bowel sounds - Integumentary Integumentary: Present: clear, warm - Psychiatric Psychiatric: appropriate mood/affect, cooperative - Neurologic Neurologic: CNII-XII intact, moves all extremities HEART Score - HEART Score Troponin: Troponin T < 0.010 ng/mL (0.00-0.029) 03/18/22 08:14 Results - Labs CBC & Chem 7: 03/19/22 07:04 03/22/22 04:50 Labs: Laboratory Last Values WBC 7.6 K/mm3 (4.5-11.0) 03/19/22 07:04 RBC 3.70 M/mm3 (3.65-5.03) 03/19/22 07:04 Hgb 12.8 gm/dl (11.8-15.2) 03/19/22 07:04 Hct 37.7 % (35.5-45.6) 03/19/22 07:04 MCV 102 fl (84-94) H 03/19/22 07:04 MCH 35 pg (28-32) H 03/19/22 07:04 MCHC 34 % (32-34) 03/19/22 07:04 RDW 13.8 % (13.2-15.2) 03/19/22 07:04 Plt Count 135 K/mm3 (140-440) L 03/19/22 07:04 Lymph % (Auto) 13.7 % (13.4-35.0) 03/19/22 07:04 [place] % (Auto) 8.8 % (0.0-7.3) H 03/19/22 07:04 Eos % (Auto) 0.1 % (0.0-4.3) 03/19/22 07:04 Baso % (Auto) 0.4 % (0.0-1.8) 03/19/22 07:04 Lymph # (Auto) 1.0 K/mm3 (1.2-5.4) L 03/19/22 07:04 [place] # (Auto) 0.7 K/mm3 (0.0-0.8) 03/19/22 07:04 Eos # (Auto) 0.0 K/mm3 (0.0-0.4) 03/19/22 07:04 Baso # (Auto) 0.0 K/mm3 (0.0-0.1) 03/19/22 07:04 Seg Neutrophils % 77.0 % (40.0-70.0) H 03/19/22 07:04 Seg Neutrophils # 5.8 K/mm3 (1.8-7.7) 03/19/22 07:04 PT 12.6 Sec. (12.2-14.9) 03/18/22 08:14 INR 0.86 (0.87-1.13) L 03/18/22 08:14 APTT 29.5 Sec. (24.2-36.6) 03/18/22 08:14 Thrombin Time 16.6 Sec. (15.1-19.6) 03/18/22 08:14 Sodium 137 mmol/L (137-145) 03/22/22 04:50 Potassium 2.6 mmol/L (3.6-5.0) L* 03/22/22 04:50 Chloride 94.3 mmol/L (98-107) L 03/22/22 04:50 Carbon Dioxide 31 mmol/L (22-30) H 03/22/22 04:50 Anion Gap 14 mmol/L 03/22/22 04:50 BUN 6 mg/dL (9-20) L 03/22/22 04:50 Creatinine 0.3 mg/dL (0.8-1.3) L 03/22/22 04:50 Estimated GFR > 60 ml/min 03/22/22 04:50 BUN/Creatinine Ratio 20 % 03/22/22 04:50 Glucose 109 mg/dL (75-100) H 03/22/22 04:50 POC Glucose 130 mg/dL (70-105) H 03/19/22 16:14 Calcium 8.7 mg/dL (8.4-10.2) 03/22/22 04:50 Phosphorus 4.10 mg/dL (2.5-4.5) 03/22/22 04:50 Magnesium 1.80 mg/dL (1.7-2.3) 03/22/22 04:50 Total Bilirubin 1.00 mg/dL (0.1-1.2) 03/22/22 04:50 Direct Bilirubin 1.1 mg/dL (0-0.2) H 03/18/22 08:14 Indirect Bilirubin 0.6 mg/dL 03/18/22 08:14 AST 145 units/L (5-40) H 03/22/22 04:50 ALT 98 units/L (7-56) H 03/22/22 04:50 Alkaline Phosphatase 77 units/L (35-129) 03/22/22 04:50 Ammonia 36.0 umol/L (25-60) 03/19/22 07:04 Total Creatine Kinase 83 units/L (55-170) 03/18/22 08:14 CK-MB (CK-2) 1.7 ng/mL (0.0-4.0) 03/18/22 08:14 CK-MB (CK-2) Rel Index 2.0 (0-4) 03/18/22 08:14 Troponin T < 0.010 ng/mL (0.00-0.029) 03/18/22 08:14 Total Protein 6.1 g/dL (6.3-8.2) L 03/22/22 04:50 Albumin 2.9 g/dL (3.9-5) L 03/22/22 04:50 Albumin/Globulin Ratio 0.9 % 03/22/22 04:50 Triglycerides 123 mg/dL (2-149) 03/19/22 07:04 Cholesterol 230 mg/dL (50-199) H 03/19/22 07:04 LDL Cholesterol Direct 116 mg/dL (50-130) 03/19/22 07:04 HDL Cholesterol 73 mg/dL (40-59) H 03/19/22 07:04 Cholesterol/HDL Ratio 3.15 % 03/19/22 07:04 Plasma/Serum Alcohol < 0.01 % (0-0.07) 03/18/22 08:14 Sánchez/IV: Voiding Method Condom Catheter Active Medications - Current Medications Current Medications: Generic Name Dose Route Start Last Admin Trade Name Freq PRN Reason Stop Dose Admin Acetaminophen 650 mg 03/18/22 14:15 Acetaminophen 325 Mg Tab PO Q4H PRN Pain MILD(1-3)/Fever >100.5/JACOBSON Hydrocodone Bitart/Acetaminophen 2 each 03/18/22 14:15 Hydrocodone/Acetaminophen 5-325 Mg Tab PO Q6H PRN Pain, Moderate (4-6) Amlodipine Besylate 10 mg 03/19/22 10:00 03/21/22 09:59 Amlodipine 10 Mg Tab PO 10 mg QDAY KEYONA Administration Aspirin 325 mg 03/19/22 10:00 03/21/22 09:59 Aspirin 325 Mg Tab PO 325 mg QDAY KEYONA Administration Docusate Sodium 100 mg 03/18/22 14:15 03/19/22 12:12 Docusate Sodium 100 Mg Cap PO 100 mg BID PRN Administration Constipation Enoxaparin Sodium 40 mg 03/19/22 10:00 03/21/22 09:59 Enoxaparin 40 Mg/0.4 Ml Inj SUB-Q 40 mg QDAY KEYONA Administration Levetiracetam 1,000 mg 03/19/22 22:00 03/21/22 22:05 Levetiracetam 500 Mg Tab PO 1,000 mg BID KEYONA Administration Naloxone HCl 0.1 mg 03/18/22 14:15 Naloxone 0.4 Mg/1 Ml Inj IV Q2MIN PRN Res Rate </= 8 or 02 SAT < 92% Nicotine 14 mg 03/19/22 10:00 03/21/22 09:59 Nicotine 14 Mg/24 Hr Patch TD 14 mg QDAY KEYONA Administration Ondansetron HCl 4 mg 03/18/22 14:15 Ondansetron 4 Mg/2 Ml Inj IV Q8H PRN Nausea And Vomiting Potassium Chloride 40 meq 03/22/22 07:00 03/22/22 06:41 Potassium Chloride Er 20 Meq Tab PO 03/22/22 11:01 40 meq Q4H KEYONA Administration Potassium Chloride 20 meq 03/22/22 10:00 Potassium Chloride Er 20 Meq Tab PO QDAY KEYONA Sodium Chloride 10 ml 03/18/22 22:00 03/21/22 22:06 Sodium Chloride 0.9% 10 Ml Flush Syringe IV 10 ml BID KEYONA Administration Sodium Chloride 10 ml 03/18/22 14:15 Sodium Chloride 0.9% 10 Ml Flush Syringe IV PRN PRN LINE FLUSH Zolpidem Tartrate 5 mg 03/18/22 14:15 03/21/22 22:05 Zolpidem 5 Mg Tab PO 5 mg QHS PRN Administration Insomnia Nutrition/Malnutrition Assess - Dietary Evaluation Nutrition/Malnutrition Findings: Nutrition Notes Start: 03/18/22 15:37 Freq: Status: Active Protocol: Document 03/19/22 12:23 BRYAN (Rec: 03/19/22 12:58 BRYAN [id number]) Nutrition Notes Need for Assessment generated from: MD Order,hitch technician,[facility] Current Diagnosis Hypertension,Stroke Other Pertinent Diagnosis Seizure, Hypokalemia, GERD, EtOH Hepatityis. Current Diet Cardiac Diet (since D 03/18). Labs/Tests 03/19: K 2.9, Cl 90.3, BUN 4, Crea 0.4, Glu 110, Phos 1.2. Pertinent Medications 03/19: KCl 40 mEq, others nutritionally unremarkable. Height 5 ft 11 in Weight 77.11 kg [place] Body Weight (kg) 78.18 BMI 23.7 Weight change and time frame 0.001 Kg body weight loss in 1 day reported. Weight Status Appropriate Subjective/Other Information RD consult for risk of malnutrition and Dietary Supplementation assessments. No reports available on Pt's PO intake at the time, will assess at F/U. Last visit on 11/02/2021, Pt's body weight was 86.183 Kg, and BMI: 27.3 Kg/m2. Pt loss 9 .073 Kg (19.9 lb) 10.5% in 4 months. I will not prescribe Dietary Supplements at this time, will assess at F/U. Bedside swallow screen passed on 03/18, according to Swallow Screen History notes. Pt is on Room Air, O2 saturation @ 93%, according to Physical Assessment History notes. Pt has missing teeth, according to Physical Assessment History notes. Pt shows no signs of concern for risk of malnutrition at the time, according to Physical Assessment History notes. Percent of energy/protein needs met: Prescribed Cardiac Diet provides for energy/protein needs (2,230 Kcal/85 g) during LOS. Burn Absent Trauma Absent GI Symptoms None Food Allergy No Skin Integrity/Comment Assessment WNL. Minimum of two criteria No Interpretation of Weight Loss (non- 10% in 6 months severe) Protein-Calorie Malnutrition N\A #1 Nutrition Diagnosis No nutrition diagnosis at this time Comments: Will assess Pt's PO intake of meals, and need for ONS at F/U . Is patient on ventilator? No Is Patient Ambulatory and/or Out of Bed No REE-([facility]-confined to bed) 195.316 Kcal/Kg value to use for calculation 28 Approximate Energy Requirements Using 2159 kcal/Kg Calculation Used for Recommendations Kcal/kg Additional Notes Protein: 0.8-1 g/Kg ABW; 62-77 g/day. Fluids: 1 ml/Kcal, or as per MD. Nutrition Intervention Change Diet Order: Continue Cardiac Diet. Follow-Up By: 03/22/22 Additional Comments Continue monitoring food tolerance, %PO intake of meals , and BM.
[2022-03-22] MEDS: ASPIRIN 325 MG TAB PO SCH (09:25)
[2022-03-22] MEDS: NICOTINE 14 MG/24 HR PATCH TD SCH (09:25)
[2022-03-22] MEDS: ENOXAPARIN 40 MG/0.4 ML INJ SUB-Q SCH (09:25)
[2022-03-22] MEDS: levETIRAcetam 500 MG TAB PO SCH ×2 (09:26→21:27)
[2022-03-22] MEDS: amLODIPine 10 MG TAB PO SCH (09:26)
[2022-03-22] MEDS: FOLIC ACID 1 MG TAB PO SCH (09:28)
[2022-03-22] MEDS: MULTIVITAMINS,THER W-MINERALS TAB PO SCH (09:30)
[2022-03-22] MEDS: THIAMINE 100 MG TAB PO SCH (09:30)
[2022-03-23 05:37] LABS: Alanine Aminotransferase 104 units/L (7-56); Blood Urea Nitrogen 7 mg/dL (9-20); Calcium 8.9 mg/dL (8.4-10.2); Hemolysis Index 7
[2022-03-23 05:43] LABS: BUN/Creatinine Ratio 23
--- NOTE | 2022-03-23 11:25 | Discharge Summary ---
Providers - Providers Date of Admission: 03/18/22 14:16 Date of discharge: 03/23/22 Attending physician: ZAHIDA DEE 03/18/22 14:15 Consult to Physician [CONS] Routine Comment: Consulting Provider: REYNALDO SOTO Physician Instructions: Reason For Exam: Acute CVA 03/18/22 15:00 Occupational Therapy Evaluate and Treat [CONS] Routine Comment: And DC needs Reason For Exam: Neuro symptoms/ CVA/evaluate and treat Physical Therapy Evaluation and Treat [CONS] Routine Comment: Reason For Exam: Acute CVA/evaluate and treat/DC needs Speech Therapy Evaluation and Treat [CONS] Routine Reason For Exam: Possible CVA/evaluate and treat 03/18/22 20:11 Consult to Dietitian/Nutrition [CONS] Routine Physician Instructions: Reason For Exam: Reason for Consult: Malnutrition Primary care physician: WASTEWATER MANAGER Hospitalization Reason for admission: Acute metabolic encephalopathy, dysarthria, right-sided weakness Condition: Stable Pertinent studies: CT head without contrast CTA head CTA neck Echocardiogram MRI brain Hospital course: 66-year-old -Thai male patient with significant past medical history of seizure disorder hypertension history of old stroke with residual weakness was admitted through emergency room with altered level of consciousness/metab olic encephalopathy and dysarthria with right-sided weakness patient was not a candidate for tPA admitted to the hospital evaluated by neurology and had extensive neuro work-up as mentioned above acute CVA is ruled out Patient has history of chronic alcohol use and acute alcoholic hepatitis patient was placed on CIWA protocol for alcohol withdrawal symptoms patient symptoms significantly improved PT OT has evaluated the patient today patient is comfortable no new complaints vital signs stable hemodynamically and clinically stable at discharge strongly advised to seek alcohol rehabilitation Strongly advised [facility] support group for alcohol rehabilitation patient verbalized understanding I discussed in detail with patient's sister and patient's periodically and updated patient's condition. Discharge diagnosis discharge --Alcohol withdrawal . DC CIWA protocol , Ativan as needed for agitation Supportive care, ambulate with assistance --Hyponatremia; resolved Closely monitor electrolytes --Hypokalemia; potassium 2.6 today; replenished with oral KCl 40 mEq every 4 hours x2 Maintenance dose of 20 mEq KCl daily[due to persistent hypokalemia] --Hypophosphatemia; Replenished, within normal range -- History of chronic alcohol use; Counseling advised to quit alcohol intake Alcohol rehabilitation Thiamine folic acid and multivitamins -- History of seizure disorder; No new episodes since admission ,seizure precautions Resume home Keppra medications, Neuro work-up, EEG Seizures probably alcohol-related --Acute CVA; ruled out Extensive neuro work-up reviewed No evidence of acute CVA Neurochecks, fall precautions Aspirin 325 mg p.o. daily Unable to give statin, due to transaminitis Physical therapy and Occupational Therapy Evaluation and treatment, discharge needs Speech therapy evaluation and treatment Cardiac diet if patient passes the swallow test --Past history of left MCA territory stroke, with residual right-sided weakness Extensive neuro work-up did not show any acute CVA Acute CVA ruled out --History of traumatic brain injury, Probably because of seizures Seizure precautions,Do not drive -Thrombocytopenia; Probably secondary to alcoholic liver disease Closely monitor -GERD: Protonix, supportive care -- Transaminitis/acute hepatitis/alcohol hepatitis Probably secondary to alcohol Transaminases trending down Strongly advised to quit alcohol intake --Ongoing tobacco use; Smoking cessation counseling when patient is more alert and awake And stable, nicotine patch as needed --DVT prophylaxis ; Subcu Lovenox Stable at discharge Disposition: 06 HOME HEALTH CARE SERVICE Final Discharge Diagnosis (Prints w/discharge instructions): Alcohol withdrawal/symptoms resolved. Chronic alcohol use counseling done advised to quit. History of left MCA territory stroke with residual weakness. History of traumatic brain injury. Thrombocytopenia improved. Gastroesophageal reflux disease. Acute alcoholic hepatitis. Ongoing tobacco use Time spent for discharge: 40 minutes Core Measure Documentation - Palliative Care Palliative Care/ Comfort Measures: Not Applicable - Core Measures Any of the following diagnoses?: none Exam - Constitutional Vitals: Temp Pulse Resp BP Pulse Ox 98.7 F 86 14 128/97 97 03/23/22 07:34 03/23/22 07:34 03/23/22 07:34 03/23/22 07:34 03/23/22 07:34 General appearance: Present: no acute distress, well-nourished - EENT Eyes: Present: PERRL, EOM intact - Neck Neck: Present: supple - Respiratory Respiratory: bilateral: diminished, negative: rales, rhonchi, wheezing - Cardiovascular Rhythm: regular Heart Sounds: Present: S1 & S2 - Extremities Extremities: no ischemia, No edema - Abdominal General gastrointestinal: Present: soft, non-tender, non-distended, normal bowel sounds - Integumentary Integumentary: Present: clear, warm - Musculoskeletal Musculoskeletal: strength equal bilaterally - Psychiatric Psychiatric: appropriate mood/affect, cooperative - Neurologic Neurologic: moves all extremities Plan Activity: advance as tolerated Diet: regular Special Instructions: smoking cessation Additional Instructions: Advised to quit alcohol intake and go for alcohol rehabilitation program. Advised to attend [facility] alcohol support group. If you have worsening symptoms contact MD or go to the nearest emergency room as needed. Do not drink and drive. fall precautions Follow up with: PRIMARY CAREMD [Primary Care Provider] - 7 Days PAULO DORMAN MD [Staff Physician] - 7 Days Prescriptions: Docusate Sodium [Colace CAP] 100 mg PO BID PRN #20 capsule PRN Reason: Constipation Folic Acid [Folvite] 1 mg PO QDAY #30 tablet Nicotine [Habitrol] 14 mg TD QDAY #30 patch levETIRAcetam [Keppra TAB] 1,000 mg PO BID #60 tablet Multivitamin Tab W-MINERAL [Multiple Vitamin/Mineral (Theragran M)] 1 each PO QDAY #30 tablet Amlodipine Besylate [Norvasc] 10 mg PO QDAY #30 Thiamine [Vitamin B-1] 100 mg PO QDAY #30 tablet
[2022-03-23] MEDS: POTASSIUM CHLORIDE ER 20 MEQ TAB PO SCH (12:00)
[2022-03-23] MEDS ORDERED: POTASSIUM CHLORIDE ER 20 MEQ TAB PO SCH (12:00)
[2022-03-23] MEDS: MULTIVITAMINS,THER W-MINERALS TAB PO SCH (12:03)
[2022-03-23] MEDS: FOLIC ACID 1 MG TAB PO SCH (12:04)
[2022-03-23 12:07] VITALS: BP 123/89
[2022-03-23] MEDS: amLODIPine 10 MG TAB PO SCH (12:07)
[2022-03-23] MEDS: NICOTINE 14 MG/24 HR PATCH TD SCH (12:09)
[2022-03-23] MEDS: THIAMINE 100 MG TAB PO SCH (12:12)
[2022-03-23] MEDS: levETIRAcetam 500 MG TAB PO SCH (12:12)
[2022-03-23] MEDS: ENOXAPARIN 40 MG/0.4 ML INJ SUB-Q SCH (12:26)
== END 2022-03-23 15:51 | disposition home health service (06) | DRG 433 ==
LOC: ED 07:47 → 4A 14:16
PROVIDERS: ADMIT Internal Medicine; ATTEND Internal Medicine
DX: K70.10 Alcoholic hepatitis without ascites (principal); F10.139 Alcohol abuse with withdrawal, unspecified; E87.1 Hypo-osmolality and hyponatremia; B17.9 Acute viral hepatitis, unspecified; G40.909 Epilepsy, unspecified, not intractable, without status epilepticus; E87.6 Hypokalemia; K21.9 Gastro-esophageal reflux disease without esophagitis; R74.01 Elevation of levels of liver transaminase levels; E83.39 Other disorders of phosphorus metabolism; F17.200 Nicotine dependence, unspecified, uncomplicated; I10 Essential (primary) hypertension; D69.6 Thrombocytopenia, unspecified
CPT/HCPCS: 36415; 70450; 70496; 70498; 70551; 71045; 80048; 80053; 80061; 80076; 80320; 82140; 82550; 82553; 82962; 83735; 84100; 84132; 84484; 85025; 85610; 85670; 85730; 93005; 93306; 97129; 99406; G0378; J7510; C8929; G0480; J1650; J1953; J2060; J3480; J7040; Q9967

== ENCOUNTER 2022-05-09 14:29 | Inpatient (IN) | payer MEDICAID ==
[2022-05-09] MEDS ORDERED: SODIUM CHLORIDE 0.9% 1000 ML 1,000 ML IV ONE (15:20)
[2022-05-09 15:51] LABS: Basophils % (Auto) 0.6 % (0.0-1.8); Eosinophils % (Auto) 0.1 % (0.0-4.3); Hematocrit 37.7 % (35.5-45.6); Hemoglobin 12.5 gm/dl (11.8-15.2); Lymphocytes # (Auto) 0.9 K/mm3 (1.2-5.4); Lymphocytes % (Auto) 11.1 % (13.4-35.0); Mean Corpuscular HGB Conc 33 % (32-34); Mean Corpuscular Volume 102 fl (84-94); Monocytes # (Auto) 0.6 K/mm3 (0.0-0.8); Monocytes % (Auto) 8.1 % (0.0-7.3); Platelet Count 243 K/mm3 (140-440); Red Blood Count 3.71 M/mm3 (3.65-5.03); Red Cell Distribution Width 13.9 % (13.2-15.2)
--- NOTE | 2022-05-09 15:52 | XRay Report ---
CHEST 1 VIEW 05/09/2022 3:35 PM INDICATION / CLINICAL INFORMATION: Altered Mental Status. COMPARISON: 03/18/22 FINDINGS: SUPPORT DEVICES: None. HEART / MEDIASTINUM: No significant abnormality. LUNGS / PLEURA: No significant pulmonary or pleural abnormality. No pneumothorax. ADDITIONAL FINDINGS: Healed left rib fractures are unchanged. IMPRESSION: 1. No acute findings. No change. Signer Name: Arcadio Gunderson MD Signed: 05/09/2022 3:48 PM Workstation Name: [id number]
[2022-05-09 16:00] LABS: INR 0.87 (0.87-1.13)
[2022-05-09 16:02] LABS: Partial Thromboplastin Time 31.8 Sec. (24.2-36.6)
[2022-05-09 16:09] LABS: Thrombin Time 18.7 Sec. (15.1-19.6)
[2022-05-09 16:15] LABS: Creatine Kinase MB 1.4 ng/mL (0.0-4.0)
[2022-05-09 16:16] LABS: Alanine Aminotransferase 26 units/L (7-56); Albumin 3.9 g/dL (3.9-5); Blood Urea Nitrogen 8 mg/dL (9-20); Hemolysis Index 3
[2022-05-09 16:24] LABS: BUN/Creatinine Ratio 20
--- NOTE | 2022-05-09 16:28 | Consultation ---
History of Present Illness History of present illness: Sammy Martinez Teleneurology Consult Note # Demographics Consult Type: Acute Stroke Level 1 (0-4.5 hrs) Patient Location: Emergency Room First Name: Oliverio Last Name: Mick IGLESIAS Date of : 1965 Age: 56 Gender: Male Facility: [facility] Time of Initial Page (): 05/09/2022, 15:31 Time of Return Call ( Time): 05/09/2022, 15:32 # HPI History: 56M with prior strokes with residual right-sided weakness, alcoholism, prsented today with lethargy. Symptom started at 1230/1300. [place] weak when he woke this morning. gave him some water and 2 shots of liquor. At 1230, he was aphasic and not moving right side. LKWT last night. # Scores Time of exam and NIHSS (): 05/09/2022, 15:32 Level of Consciousness 1a: [0] = Alert; keenly responsive LOC Questions 1b: [2] = Answers neither correctly LOC Commands 1c: [0] = Performs both tasks correctly Best Gaze 2: [0] = Normal Visual 3: [1] = Partial hemianopia Facial Palsy 4: [1] = Minor paralysis Motor Arm Left 5a: [0] = No drift Motor Arm Right 5b: [3] = No effort against gravity Motor Leg Left 6a: [0] = No drift Motor Leg Right 6b: [3] = No effort against gravity Limb Ataxia 7: [0] = Absent Sensory 8: [0] = Normal Best Language 9: [1] = [id number] aphasia Dysarthria 10: [1] = [id number] dysarthria Extinction and Inattention 11: [1] = Visual, tactile, auditory, spatial, or personal inattention NIHSS Total: 13 # Data Time Head CT personally read by me (): 05/09/2022, 16:[address]: no bleed preliminarily reviewed by me, please refer to radiology read for official reading chronic left MCA territory stroke # Assessment Impression: Ischemic Stroke (Acute) # Plan Thrombolytic/Intervention: Possible IA candidate Thrombolytic Exclusion: > 4.5 hours Possible IA Candidate: CTA pending Target Blood Pressure: SBP < 220 DBP < 105 Labs: hemoglobin A1c lipid panel Medication: ASA 325 PO if passes swallow evaluation Other: consult on-site neurology service for full work-up and evaluation recommendations permissive hypertension telemetry monitoring I have discussed my recommendations with the referring provider Additional Recommendations: If LVO present on CTA head/neck would transfer to evaluate for possible thrombectomy Disposition: admit # Logistics Telemedicine: Interactive 2 way audio and visual telecommunication technology was utilized during this visit Electronically signed at 05/09/2022 16:28 (Eastern Time) by Manuel Martinez MD Medications and Allergies Allergies Allergy/AdvReac Type Severity Reaction Status Date / Time No Known Allergies Allergy Verified 05/09/22 14:42 Home Medications Medication Instructions Recorded Confirmed Last Taken Type Meloxicam [Mobic] 15 mg PO QDAY 03/18/22 03/18/22 Unknown History Amlodipine Besylate [Norvasc] 10 mg PO QDAY #30 03/23/22 Unknown Rx Aspirin EC [Halfprin EC] 81 mg PO QDAY #30 tablet. 03/23/22 Unknown Rx Docusate Sodium [Colace CAP] 100 mg PO BID PRN #20 capsule 03/23/22 Unknown Rx Famotidine [Pepcid] 20 mg PO BID #30 tablet 03/23/22 Unknown Rx Folic Acid [Folvite] 1 mg PO QDAY #30 tablet 03/23/22 Unknown Rx Multivitamin Tab W-MINERAL 1 each PO QDAY #30 tablet 03/23/22 Unknown Rx [Multiple Vitamin/Mineral (Theragran M)] Nicotine [Habitrol] 14 mg TD QDAY #30 patch 03/23/22 Unknown Rx Thiamine [Vitamin B-1] 100 mg PO QDAY #30 tablet 03/23/22 Unknown Rx levETIRAcetam [Keppra TAB] 1,000 mg PO BID #60 tablet 03/23/22 Unknown Rx Physical Examination - Vital Signs Vital Signs: Vital Signs Temp Pulse Resp BP Pulse Ox 98 F 83 16 144/97 97 05/09/22 14:35 05/09/22 14:35 05/09/22 14:35 05/09/22 14:35 05/09/22 14:35 Results - Laboratory Findings CBC and BMP: 05/09/22 15:25 05/09/22 15:25 Abnormal Lab Findings: Abnormal Labs 05/09/22 05/09/22 05/09/22 15:25 15:25 15:25 MCV 102 H MCH 34 H Lymph % (Auto) 11.1 L [place] % (Auto) 8.1 H Lymph # (Auto) 0.9 L Seg Neutrophils % 80.1 H Chloride 97.2 L BUN 8 L Creatinine 0.4 L Lactic Acid 3.00 H* Salicylates Acetaminophen 05/09/22 05/09/22 15:25 15:25 MCV MCH Lymph % (Auto) [place] % (Auto) Lymph # (Auto) Seg Neutrophils % Chloride BUN Creatinine Lactic Acid Salicylates < 0.3 L Acetaminophen 5.0 L
--- NOTE | 2022-05-09 16:38 | Cat Scan Report ---
NONENHANCED CT SCAN OF THE HEAD: INDICATION / CLINICAL INFORMATION: 56 years Male; CODE STROKE PROTOCOL!!! Stroke-Like symptoms. TECHNIQUE: Routine CT head without contrast. All CT scans at this location are performed using CT dos e reduction for ALARA by means of automated exposure control. COMPARISON: CT scan of the head from 03/18/2022 (history of stroke) and MR scan of the brain from 03/19/2022 (histo ry of acute stroke) FINDINGS: BRAIN / INTRACRANIAL CONTENTS: No intracerebral hemorrhage or stroke mimics No CT findings to suggest acute/subacute territorial infarction.; Chronic ischemic changes are seen i n the left cerebral hemisphere in the middle cerebral artery territory. This has has not progressed. Right cerebral hemisphere, brainstem and cerebellar hemispheres are normal. CRANIOCERVICAL JUNCTION: No significant abnormality. ORBITS: No significant abnormality of visualized orbits. SINUSES / MASTOIDS: No significant abnormality of the visualized paranasal sinuses or mastoid air tameka ls. ADDITIONAL FINDINGS: None. IMPRESSION: No intracerebral hemorrhage or stroke mimics No CT findings to suggest acute/subacute territorial infarction Chronic ischemic changes in the left middle cerebral artery territory Signer Name: Analilia Cerda MD Signed: 05/09/2022 4:34 PM Workstation Name: [id number]
--- NOTE | 2022-05-09 17:14 | Cat Scan Report ---
CTA NECK WITH CONTRAST HISTORY: "Stroke like symptoms" COMPARISON: None. TECHNIQUE: Routine CTA of the neck was performed. 3-D/MIP reformats were postprocessed. Percentage s tenosis is determined by direct quantitative measurements of diseased internal carotid artery diamete r compared with normal distal internal carotid artery reference segments or by criteria similar to NA SCET where applicable.All CT scans at this location are performed using CT dose reduction for ALARA b y means of automated exposure control CONTRAST: 100 ml of Omnipaque 350 FINDINGS: Aortic arch: No significant abnormality. Cervical vertebral arteries: Right vertebral artery: Less than 50% narrowing near the origin of right vertebral artery; rest of th e right vertebral artery normal Left vertebral artery: Focal calcified atherosclerotic plaque narrowing the origin of left vertebral artery by less than 50%; rest of the left vertebral artery is normal Common carotid arteries: No significant abnormality. Carotid bifurcations: Right carotid bifurcation: Normal carotid bifurcations: However, 8 mm from the origin, 2 cm long athe rosclerotic plaque with calcification (thickness 3 mm) seen. Lumen of the proximal right internal car otid artery is narrowed by approximately 50%. Left carotid bifurcation: Calcified plaque along the posterior wall of proximal left internal carotid artery (maximum thickness of calcification 2 mm); less than 50% stenoses of the proximal left marketing research intern al carotid artery Cervical internal carotid arteries: No significant abnormality. Additional findings: None. IMPRESSION: Calcified atherosclerotic plaques in the bifurcations; approximately 50% stenoses in the proximal internal carotid arteries CTA HEAD WITH CONTRAST TECHNIQUE: Routine non-contrast CT Head, CTA of the head and post-contrast CT Head are performed. 3-D /MIP reformats postprocessed. All CT scans at this location are performed using CT dose reduction for ALARA by means of automated exposure control FINDINGS: CTA Head: Intracranial vertebral arteries: No significant abnormality. Basilar artery: No significant abnormality. Posterior cerebral arteries: No significant abnormality. Posterior communicating arteries are contrib uting to posterior cerebral arteries Intracranial internal carotid arteries: No significant abnormality. Vascular calcification Anterior cerebral arteries: No significant abnormality. Middle cerebral arteries: No significant abnormality. Dural venous sinuses:Not optimally opacified. No significant abnormality. Additional findings: Mucosal disease in the right maxillary sinus IMPRESSION: 1. No significant abnormality. Signer Name: Analilia Cerda MD Signed: 05/09/2022 5:10 PM Workstation Name: [id number]
[2022-05-09 17:47] LABS: Bilirubin,Urine NEG (Negative); Blood,Urine NEG (Negative); Color,Urine Yellow (Yellow); Hyaline Casts,Urine 2 /LPF; Mucus,Urine FEW /HPF; Protein,Urine <15 mg/dL mg/dL (Negative)
[2022-05-09 17:54] LABS: Amphetamine Screen,Urine Negative; Benzodiazepines Screen,Urine Negative; Cannabinoid Screen,Urine Negative; Cocaine Screen,Urine Negative; Methadone Screen,Urine Negative; Opiate Screen,Urine Negative
[2022-05-09] MEDS ORDERED: MAGNESIUM HYDROXIDE (MOM) ORAL LIQD UDC PO PRN (18:04)
[2022-05-09] MEDS ORDERED: HYDROmorphone 0.5 MG/0.5 ML INJ IV PRN (18:04)
[2022-05-09] MEDS ORDERED: ACETAMINOPHEN 325 MG TAB PO PRN (18:04)
[2022-05-09] MEDS ORDERED: ONDANSETRON 4 MG/2 ML INJ IV PRN (18:04)
[2022-05-09] MEDS ORDERED: oxyCODONE /ACETAMINOPHEN 5-325MG TAB PO PRN (18:04)
[2022-05-09] MEDS ORDERED: PROMETHAZINE 25 MG RECT SUPP PR PRN (18:04)
[2022-05-09] MEDS ORDERED: METOCLOPRAMIDE 10 MG TAB PO PRN (18:04)
--- NOTE | 2022-05-09 18:10 | Emergency Department Report ---
ED Altered Mental Status HPI - General Chief Complaint: Altered Mental Status Stated Complaint: AMS/ETOH Time Seen by Provider: 05/09/22 15:16 Source: patient, EMS Mode of arrival: Stretcher Limitations: Altered Mental Status - History of Present Illness Initial Comments: pt altered today, last known normal 1200 today. etoh on board, right sided weakness, pt has hx of stroke pt has history of rt CVA and rigth side residual , had BBQ democrat last night had couple of drinks and went to sleep , woke upo today confused and his wfe gave him 2 more shots and he became incoherent around 1 pm, Complaint: confusion, decreased responsiveness -: hour(s) Severity: moderate Consistency of Symptoms: constant Context: alcohol abuse Associated Symptoms: denies: denies other symptoms, chest pain, cough, diap horesis, fever/chills, headaches - Related Data Home Medications Medication Instructions Recorded Confirmed Last Taken Meloxicam [Mobic] 15 mg PO QDAY 03/18/22 03/18/22 Unknown Previous Rx's Medication Instructions Recorded Last Taken Type Amlodipine Besylate [Norvasc] 10 mg PO QDAY #30 03/23/22 Unknown Rx Aspirin EC [Halfprin EC] 81 mg PO QDAY #30 tablet. 03/23/22 Unknown Rx Docusate Sodium [Colace CAP] 100 mg PO BID PRN #20 capsule 03/23/22 Unknown Rx Famotidine [Pepcid] 20 mg PO BID #30 tablet 03/23/22 Unknown Rx Folic Acid [Folvite] 1 mg PO QDAY #30 tablet 03/23/22 Unknown Rx Multivitamin Tab W-MINERAL 1 each PO QDAY #30 tablet 03/23/22 Unknown Rx [Multiple Vitamin/Mineral (Theragran M)] Nicotine [Habitrol] 14 mg TD QDAY #30 patch 03/23/22 Unknown Rx Thiamine [Vitamin B-1] 100 mg PO QDAY #30 tablet 03/23/22 Unknown Rx levETIRAcetam [Keppra TAB] 1,000 mg PO BID #60 tablet 03/23/22 Unknown Rx Allergies Allergy/AdvReac Type Severity Reaction Status Date / Time No Known Allergies Allergy Verified 05/09/22 14:42 ED Review of Systems ROS: Stated complaint: AMS/ETOH Other details as noted in HPI Comment: Unobtainable due to pts medical conditions ED Past Medical Hx - Past Medical History Hx Hypertension: Yes Hx Seizures: Yes Additional medical history: Traumatic brain injury - Social History Smoking Status: Current Every Day Smoker - Medications Home Medications: Home Medications Medication Instructions Recorded Confirmed Last Taken Type Meloxicam [Mobic] 15 mg PO QDAY 03/18/22 03/18/22 Unknown History Amlodipine Besylate [Norvasc] 10 mg PO QDAY #30 03/23/22 Unknown Rx Aspirin EC [Halfprin EC] 81 mg PO QDAY #30 tablet.dr 03/23/22 Unknown Rx Docusate Sodium [Colace CAP] 100 mg PO BID PRN #20 capsule 03/23/22 Unknown Rx Famotidine [Pepcid] 20 mg PO BID #30 tablet 03/23/22 Unknown Rx Folic Acid [Folvite] 1 mg PO QDAY #30 tablet 03/23/22 Unknown Rx Multivitamin Tab W-MINERAL 1 each PO QDAY #30 tablet 03/23/22 Unknown Rx [Multiple Vitamin/Mineral (Theragran M)] Nicotine [Habitrol] 14 mg TD QDAY #30 patch 03/23/22 Unknown Rx Thiamine [Vitamin B-1] 100 mg PO QDAY #30 tablet 03/23/22 Unknown Rx levETIRAcetam [Keppra TAB] 1,000 mg PO BID #60 tablet 03/23/22 Unknown Rx ED Physical Exam - General Limitations: Altered Mental Status General appearance: alert - Head Head exam: Present: atraumatic, normocephalic - Eye Eye exam: Present: normal appearance - ENT ENT exam: Present: mucous membranes moist - Neck Neck exam: Present: normal inspection - Respiratory Respiratory exam: Present: normal lung sounds bilaterally. Absent: respiratory distress - Cardiovascular Cardiovascular Exam: Present: regular rate, normal rhythm. Absent: systolic murmur, diastolic murmur, rubs, gallop - GI/Abdominal GI/Abdominal exam: Present: soft, normal bowel sounds - Rectal Rectal exam: Present: deferred - Extremities Exam Extremities exam: Present: normal inspection - Back Exam Back exam: Present: normal inspection - Neurological Exam Neurological exam: Present: alert - Expanded Neurological Exam Expanded Neurological exam: Present: innattentive, expressive aphasia Patient oriented to: Absent: person, place, time Speech: Present: expressive aphasia Best Eye Response ([place]): (4) open spontaneously Best Motor Response ([place]): (6) obeys commands Best Verbal Response ([place]): (4) confused conversation [place] Total: 14 - Psychiatric Psychiatric exam: Present: normal affect, normal mood - Skin Skin exam: Present: warm, dry, intact, normal color. Absent: rash - Assessment Assessment Interval: Baseline - Level of Consciousness 1a. Level of Consciousness: alert/keenly responsive - LOC Questions 1b. LOC Questions: answers no questions correctly - LOC Command 1c. LOC Commands: performs tasks correctly - Best Gaze 2. Best Gaze: normal - Visual 3. Visual: partial hemianopia - Facial Palsy 4. Facial Palsy: normal symmetrical movement - Motor Arm 5a. Motor Arm Left: no drift 5b. Motor Arm Right: no movement - Motor Leg 6a. Motor Leg Left: no drift 6b. Motor Leg Right: no movement - Limb Ataxia 7. Limb Ataxia: absent - Sensory 8. Sensory: normal - Best Language 9. Best Language: mild/moderate aphasia - Dysarthria 10. Dysarthria: mild/moderate dysarthria - Extinction and Inattention 11. Extinction/Inattention: no abnormality - Scoring Total Score: 13 Stroke Severity: Moderate Stroke ED Course Vital Signs 05/09/22 05/09/22 05/09/22 14:35 15:12 17:12 Temperature 98 F 98.2 F Pulse Rate 83 91 H 85 Respiratory 16 18 15 Rate Blood Pressure 124/79 Blood Pressure 144/97 125/81 113/75 [Left] O2 Sat by Pulse 97 99 100 Oximetry - Lab Data Result diagrams: 05/09/22 15:25 05/09/22 15:25 Lab Results 05/09/22 05/09/22 05/09/22 Range/Units 15:25 15:25 15:25 WBC 7.6 (4.5-11.0) K/mm3 RBC 3.71 (3.65-5.03) M/mm3 Hgb 12.5 (11.8-15.2) gm/dl Hct 37.7 (35.5-45.6) % MCV 102 H (84-94) fl MCH 34 H (28-32) pg MCHC 33 (32-34) % RDW 13.9 (13.2-15.2) % Plt Count 243 (140-440) K/mm3 Lymph % (Auto) 11.1 L (13.4-35.0) % Hitchcock % (Auto) 8.1 H (0.0-7.3) % Eos % (Auto) 0.1 (0.0-4.3) % Baso % (Auto) 0.6 (0.0-1.8) % Lymph # (Auto) 0.9 L (1.2-5.4) K/mm3 Hitchcock # (Auto) 0.6 (0.0-0.8) K/mm3 Eos # (Auto) 0.0 (0.0-0.4) K/mm3 Baso # (Auto) 0.0 (0.0-0.1) K/mm3 Seg Neutrophils % 80.1 H (40.0-70.0) % Seg Neutrophils # 6.1 (1.8-7.7) K/mm3 PT 12.8 (12.2-14.9) Sec. INR 0.87 (0.87-1.13) APTT 31.8 (24.2-36.6) Sec. Thrombin Time 18.7 (15.1-19.6) Sec. Sodium 139 (137-145) mmol/L Potassium 3.6 (3.6-5.0) mmol/L Chloride 97.2 L (98-107) mmol/L Carbon Dioxide 27 (22-30) mmol/L Anion Gap 18 mmol/L BUN 8 L (9-20) mg/dL Creatinine 0.4 L (0.8-1.3) mg/dL Estimated GFR > 60 ml/min BUN/Creatinine Ratio 20 % Glucose 94 (75-100) mg/dL Lactic Acid (0.7-2.0) mmol/L Calcium 9.0 (8.4-10.2) mg/dL Total Bilirubin 0.40 (0.1-1.2) mg/dL AST 38 (5-40) units/L ALT 26 (7-56) units/L Alkaline Phosphatase 47 (35-129) units/L Ammonia (25-60) umol/L Total Creatine Kinase 76 (55-170) units/L CK-MB (CK-2) (0.0-4.0) ng/mL CK-MB (CK-2) Rel Index (0-4) Troponin T < 0.010 (0.00-0.029) ng/mL Total Protein 7.6 (6.3-8.2) g/dL Albumin 3.9 (3.9-5) g/dL Albumin/Globulin Ratio 1.1 % Urine Color (Yellow) Urine Turbidity (Clear) Urine pH (5.0-7.0) Ur Specific Hendricks (1.003-1.030) Urine Protein (Negative) mg/dL Urine Glucose (UA) (Negative) mg/dL Urine Ketones (Negative) mg/dL Urine Blood (Negative) Urine Nitrite (Negative) Urine Bilirubin (Negative) Urine Urobilinogen (<2.0) mg/dL Ur Leukocyte Esterase (Negative) Urine WBC (Auto) (0.0-6.0) /HPF Urine RBC (Auto) (0.0-6.0) /HPF U Epithel Cells (Auto) (0-13.0) /HPF Hyaline Casts /LPF Urine Mucus /HPF Salicylates (2.8-20.0) mg/dL Urine Opiates Screen Urine Methadone Screen Acetaminophen (10.0-30.0) ug/mL Ur Barbiturates Screen Ur Phencyclidine Scrn Ur Amphetamines Screen U Benzodiazepines Scrn Urine Cocaine Screen U Marijuana (THC) Screen Plasma/Serum Alcohol (0-0.07) % 05/09/22 05/09/22 05/09/22 Range/Units 15:25 15:25 15:25 WBC (4.5-11.0) K/mm3 RBC (3.65-5.03) M/mm3 Hgb (11.8-15.2) gm/dl Hct (35.5-45.6) % MCV (84-94) fl MCH (28-32) pg MCHC (32-34) % RDW (13.2-15.2) % Plt Count (140-440) K/mm3 Lymph % (Auto) (13.4-35.0) % Hitchcock % (Auto) (0.0-7.3) % Eos % (Auto) (0.0-4.3) % Baso % (Auto) (0.0-1.8) % Lymph # (Auto) (1.2-5.4) K/mm3 Hitchcock # (Auto) (0.0-0.8) K/mm3 Eos # (Auto) (0.0-0.4) K/mm3 Baso # (Auto) (0.0-0.1) K/mm3 Seg Neutrophils % (40.0-70.0) % Seg Neutrophils # (1.8-7.7) K/mm3 PT (12.2-14.9) Sec. INR (0.87-1.13) APTT (24.2-36.6) Sec. Thrombin Time (15.1-19.6) Sec. Sodium (137-145) mmol/L Potassium (3.6-5.0) mmol/L Chloride (98-107) mmol/L Carbon Dioxide (22-30) mmol/L Anion Gap mmol/L BUN (9-20) mg/dL Creatinine (0.8-1.3) mg/dL Estimated GFR ml/min BUN/Creatinine Ratio % Glucose (75-100) mg/dL Lactic Acid 3.00 H* (0.7-2.0) mmol/L Calcium (8.4-10.2) mg/dL Total Bilirubin (0.1-1.2) mg/dL AST (5-40) units/L ALT (7-56) units/L Alkaline Phosphatase (35-129) units/L Ammonia 39.0 (25-60) umol/L Total Creatine Kinase (55-170) units/L CK-MB (CK-2) (0.0-4.0) ng/mL CK-MB (CK-2) Rel Index (0-4) Troponin T (0.00-0.029) ng/mL Total Protein (6.3-8.2) g/dL Albumin (3.9-5) g/dL Albumin/Globulin Ratio % Urine Color (Yellow) Urine Turbidity (Clear) Urine pH (5.0-7.0) Ur Specific Hendricks (1.003-1.030) Urine Protein (Negative) mg/dL Urine Glucose (UA) (Negative) mg/dL Urine Ketones (Negative) mg/dL Urine Blood (Negative) Urine Nitrite (Negative) Urine Bilirubin (Negative) Urine Urobilinogen (<2.0) mg/dL Ur Leukocyte Esterase (Negative) Urine WBC (Auto) (0.0-6.0) /HPF Urine RBC (Auto) (0.0-6.0) /HPF U Epithel Cells (Auto) (0-13.0) /HPF Hyaline Casts /LPF Urine Mucus /HPF Salicylates < 0.3 L (2.8-20.0) mg/dL Urine Opiates Screen Urine Methadone Screen Acetaminophen (10.0-30.0) ug/mL Ur Barbiturates Screen Ur Phencyclidine Scrn Ur Amphetamines Screen U Benzodiazepines Scrn Urine Cocaine Screen U Marijuana (THC) Screen Plasma/Serum Alcohol (0-0.07) % 05/09/22 05/09/22 05/09/22 Range/Units 15:25 15:25 15:37 WBC (4.5-11.0) K/mm3 RBC (3.65-5.03) M/mm3 Hgb (11.8-15.2) gm/dl Hct (35.5-45.6) % MCV (84-94) fl MCH (28-32) pg MCHC (32-34) % RDW (13.2-15.2) % Plt Count (140-440) K/mm3 Lymph % (Auto) (13.4-35.0) % Hitchcock % (Auto) (0.0-7.3) % Eos % (Auto) (0.0-4.3) % Baso % (Auto) (0.0-1.8) % Lymph # (Auto) (1.2-5.4) K/mm3 Hitchcock # (Auto) (0.0-0.8) K/mm3 Eos # (Auto) (0.0-0.4) K/mm3 Baso # (Auto) (0.0-0.1) K/mm3 Seg Neutrophils % (40.0-70.0) % Seg Neutrophils # (1.8-7.7) K/mm3 PT (12.2-14.9) Sec. INR (0.87-1.13) APTT (24.2-36.6) Sec. Thrombin Time (15.1-19.6) Sec. Sodium (137-145) mmol/L Potassium (3.6-5.0) mmol/L Chloride (98-107) mmol/L Carbon Dioxide (22-30) mmol/L Anion Gap mmol/L BUN (9-20) mg/dL Creatinine (0.8-1.3) mg/dL Estimated GFR ml/min BUN/Creatinine Ratio % Glucose (75-100) mg/dL Lactic Acid (0.7-2.0) mmol/L Calcium (8.4-10.2) mg/dL Total Bilirubin (0.1-1.2) mg/dL AST (5-40) units/L ALT (7-56) units/L Alkaline Phosphatase (35-129) units/L Ammonia (25-60) umol/L Total Creatine Kinase 77 (55-170) units/L CK-MB (CK-2) 1.4 (0.0-4.0) ng/mL CK-MB (CK-2) Rel Index 1.8 (0-4) Troponin T (0.00-0.029) ng/mL Total Protein (6.3-8.2) g/dL Albumin (3.9-5) g/dL Albumin/Globulin Ratio % Urine Color (Yellow) Urine Turbidity (Clear) Urine pH (5.0-7.0) Ur Specific Hendricks (1.003-1.030) Urine Protein (Negative) mg/dL Urine Glucose (UA) (Negative) mg/dL Urine Ketones (Negative) mg/dL Urine Blood (Negative) Urine Nitrite (Negative) Urine Bilirubin (Negative) Urine Urobilinogen (<2.0) mg/dL Ur Leukocyte Esterase (Negative) Urine WBC (Auto) (0.0-6.0) /HPF Urine RBC (Auto) (0.0-6.0) /HPF U Epithel Cells (Auto) (0-13.0) /HPF Hyaline Casts /LPF Urine Mucus /HPF Salicylates (2.8-20.0) mg/dL Urine Opiates Screen Urine Methadone Screen Acetaminophen 5.0 L (10.0-30.0) ug/mL Ur Barbiturates Screen Ur Phencyclidine Scrn Ur Amphetamines Screen U Benzodiazepines Scrn Urine Cocaine Screen U Marijuana (THC) Screen Plasma/Serum Alcohol 0.04 (0-0.07) % 05/09/22 05/09/22 Range/Units 17:17 17:17 WBC (4.5-11.0) K/mm3 RBC (3.65-5.03) M/mm3 Hgb (11.8-15.2) gm/dl Hct (35.5-45.6) % MCV (84-94) fl MCH (28-32) pg MCHC (32-34) % RDW (13.2-15.2) % Plt Count (140-440) K/mm3 Lymph % (Auto) (13.4-35.0) % Hitchcock % (Auto) (0.0-7.3) % Eos % (Auto) (0.0-4.3) % Baso % (Auto) (0.0-1.8) % Lymph # (Auto) (1.2-5.4) K/mm3 Hitchcock # (Auto) (0.0-0.8) K/mm3 Eos # (Auto) (0.0-0.4) K/mm3 Baso # (Auto) (0.0-0.1) K/mm3 Seg Neutrophils % (40.0-70.0) % Seg Neutrophils # (1.8-7.7) K/mm3 PT (12.2-14.9) Sec. INR (0.87-1.13) APTT (24.2-36.6) Sec. Thrombin Time (15.1-19.6) Sec. Sodium (137-145) mmol/L Potassium (3.6-5.0) mmol/L Chloride (98-107) mmol/L Carbon Dioxide (22-30) mmol/L Anion Gap mmol/L BUN (9-20) mg/dL Creatinine (0.8-1.3) mg/dL Estimated GFR ml/min BUN/Creatinine Ratio % Glucose (75-100) mg/dL Lactic Acid (0.7-2.0) mmol/L Calcium (8.4-10.2) mg/dL Total Bilirubin (0.1-1.2) mg/dL AST (5-40) units/L ALT (7-56) units/L Alkaline Phosphatase (35-129) units/L Ammonia (25-60) umol/L Total Creatine Kinase (55-170) units/L CK-MB (CK-2) (0.0-4.0) ng/mL CK-MB (CK-2) Rel Index (0-4) Troponin T (0.00-0.029) ng/mL Total Protein (6.3-8.2) g/dL Albumin (3.9-5) g/dL Albumin/Globulin Ratio % Urine Color Yellow (Yellow) Urine Turbidity Clear (Clear) Urine pH 6.0 (5.0-7.0) Ur Specific Hendricks 1.013 (1.003-1.030) Urine Protein <15 mg/dl (Negative) mg/dL Urine Glucose (UA) Neg (Negative) mg/dL Urine Ketones Neg (Negative) mg/dL Urine Blood Neg (Negative) Urine Nitrite Neg (Negative) Urine Bilirubin Neg (Negative) Urine Urobilinogen 4.0 (<2.0) mg/dL Ur Leukocyte Esterase Neg (Negative) Urine WBC (Auto) 1.0 (0.0-6.0) /HPF Urine RBC (Auto) 1.0 (0.0-6.0) /HPF U Epithel Cells (Auto) 1.0 (0-13.0) /HPF Hyaline Casts 2 /LPF Urine Mucus Few /HPF Salicylates (2.8-20.0) mg/dL Urine Opiates Screen Negative Urine Methadone Screen Negative Acetaminophen (10.0-30.0) ug/mL Ur Barbiturates Screen Negative Ur Phencyclidine Scrn Negative Ur Amphetamines Screen Negative U Benzodiazepines Scrn Negative Urine Cocaine Screen Negative U Marijuana (THC) Screen Negative Plasma/Serum Alcohol (0-0.07) % - EKG Data -: EKG Interpreted by Me EKG shows normal: sinus rhythm Rate: normal Interpretation: no acute changes - Radiology Data Radiology results: report reviewed, image reviewed - Medical Decision Making stroke alert , head CT negative for new bleed, neurology NIHSS score of 13 , not TPA canddiate based on onset , vss nod sitress Critical care attestation.: If time is entered above; I have spent that time in minutes in the direct care of this critically ill patient, excluding procedure time. ED Disposition Clinical Impression: Altered mental status, Confusion Disposition: ADMITTED INPATIENT Is pt being admited?: Yes Does the pt Need Aspirin: Yes Condition: Stable Referrals: PRIMARY CARE,MD [Primary Care Provider] - 3-5 Days
--- NOTE | 2022-05-09 18:10 | History and Physical Report ---
History of Present Illness Chief complaint: My made me come here History of present illness: 56 YO Male with Seizure Disorder, HTN, ETOH Dependence, TBI, Nicotine Dependence presents to ED for evaluation. Patient has diminished cognition at the time of my evaluation and only provides minimal history. Patient reports " I do not want to be here". Additional history taken EMS staff, ED staff, as well as the patient's who was made available by telephone for interview. As per the patient was in his usual state of health around 1200 hrs. today. Patient awakened from sleep around noon and was found to have worsening right-sided weakness. Patient acknowledges patient ingested alcohol within the past 24 hours. EMS was notified and upon arrival the patient was found to have a neurologic deficit. A code stroke was called and the patient was transported to [facility] for further care and evaluation of the aforementioned symptoms. The patient was seen and evaluated in the emergency department. All lab and imaging studies reviewed. Patient found to have clinical symptoms consistent with CVA. Patient admitted to medical floor and initiated on CVA protocol as well as alcohol withdrawal protocol due to increased risk of worsening symptoms. Teleneurology consulted in ED. Patient has diminished cognition but has a positive gag reflex and is able to protect his airway without difficulty at the time my evaluation. No reports of fever, chills, chest pain, palpitation, productive cough, trauma, skin rash, recent contact, known exposure to COVID-19. Prior admission on 03/18/2022 reviewed. All medication listed at time of admission has been reconciled. Advanced care planning conducted in ED. Past History Past Medical History: hypertension, seizures, other (See HPI) Past Surgical History: No surgical history, Other (Reviewed) Social history: , lives with family, smoking, alcohol abuse Family history: hypertension Medications and Allergies Allergies Allergy/AdvReac Type Severity Reaction Status Date / Time No Known Allergies Allergy Verified 05/09/22 14:42 Home Medications Medication Instructions Recorded Confirmed Last Taken Type Meloxicam [Mobic] 15 mg PO QDAY 03/18/22 03/18/22 Unknown History Amlodipine Besylate [Norvasc] 10 mg PO QDAY #30 03/23/22 Unknown Rx Aspirin EC [Halfprin EC] 81 mg PO QDAY #30 tablet. 03/23/22 Unknown Rx Docusate Sodium [Colace CAP] 100 mg PO BID PRN #20 capsule 03/23/22 Unknown Rx Famotidine [Pepcid] 20 mg PO BID #30 tablet 03/23/22 Unknown Rx Folic Acid [Folvite] 1 mg PO QDAY #30 tablet 03/23/22 Unknown Rx Multivitamin Tab W-MINERAL 1 each PO QDAY #30 tablet 03/23/22 Unknown Rx [Multiple Vitamin/Mineral (Theragran M)] Nicotine [Habitrol] 14 mg TD QDAY #30 patch 03/23/22 Unknown Rx Thiamine [Vitamin B-1] 100 mg PO QDAY #30 tablet 03/23/22 Unknown Rx levETIRAcetam [Keppra TAB] 1,000 mg PO BID #60 tablet 03/23/22 Unknown Rx Active Meds: Active Medications Acetaminophen (Acetaminophen 325 Mg Tab) 650 mg PO Q4H PRN PRN Reason: Pain, Mild (1-3) Aspirin (Aspirin 325 Mg Tab) 325 mg PO QDAY [place] Atorvastatin Calcium (Atorvastatin 40 Mg Tab) 40 mg PO QHS [place] Bisacodyl (Bisacodyl 10 Mg Rect Supp) 10 mg UT QDAY PRN PRN Reason: Constipation Hydromorphone HCl (Hydromorphone 0.5 Mg/0.5 Ml Inj) 0.5 mg IV Q23H PRN PRN Reason: Pain , Severe (7-10) Magnesium Hydroxide (Magnesium Hydroxide (Mom) Oral Liqd Udc) 30 ml PO Q4H PRN PRN Reason: Constipation Metoclopramide HCl (Metoclopramide 10 Mg Tab) 10 mg PO Q6H PRN PRN Reason: Nausea And Vomiting Ondansetron HCl (Ondansetron 4 Mg/2 Ml Inj) 4 mg IV Q8H PRN PRN Reason: Nausea And Vomiting Oxycodone/Acetaminophen (Oxycodone /Acetaminophen 5-325mg Tab) 1 tab PO Q16H PRN PRN Reason: Pain, Moderate (4-6) Promethazine HCl (Promethazine 25 Mg Rect Supp) 25 mg UT Q6H PRN PRN Reason: Nausea And Vomiting Sodium Chloride (Sodium Chloride 0.9% 10 Ml Flush Syringe) 10 ml INJ PRN PRN PRN Reason: LINE FLUSH Review of Systems ROS unobtainable: due to mental status Exam - Constitutional Vitals: Temp Pulse Resp BP Pulse Ox 98.2 F 85 15 113/75 100 05/09/22 15:12 05/09/22 17:12 05/09/22 17:12 05/09/22 17:12 05/09/22 17:12 General appearance: Present: mild distress, disheveled - EENT Eyes: Present: PERRL ENT: hearing intact, clear oral mucosa - Neck Neck: Present: supple, normal ROM - Respiratory Respiratory effort: normal Respiratory: bilateral: CTA - Cardiovascular Heart Sounds: Present: S1 & S2. Absent: rub, click - Extremities Extremities: pulses symmetrical, No edema Peripheral Pulses: within normal limits - Abdominal General gastrointestinal: Present: soft, non-tender, non-distended, normal bowel sounds Male genitourinary: Present: normal - Integumentary Integumentary: Present: clear, warm, dry - Musculoskeletal Musculoskeletal: right sided weakness - Psychiatric Psychiatric: no appropriate mood/affect, no intact judgment & insight, no memory intact, agitated - Neurologic Neurologic: CNII-XII intact, moves all extremities, no gait normal HEART Score - HEART Score Troponin: Troponin T < 0.010 ng/mL (0.00-0.029) 05/09/22 15:25 Results - Labs CBC & Chem 7: 05/09/22 15:25 05/09/22 15:25 Labs: Abnormal lab results 05/09/22 05/09/22 05/09/22 Range/Units 15:25 15:25 15:25 MCV 102 H (84-94) fl MCH 34 H (28-32) pg Lymph % (Auto) 11.1 L (13.4-35.0) % Gray % (Auto) 8.1 H (0.0-7.3) % Lymph # (Auto) 0.9 L (1.2-5.4) K/mm3 Seg Neutrophils % 80.1 H (40.0-70.0) % Chloride 97.2 L (98-107) mmol/L BUN 8 L (9-20) mg/dL Creatinine 0.4 L (0.8-1.3) mg/dL Lactic Acid 3.00 H* (0.7-2.0) mmol/L Salicylates (2.8-20.0) mg/dL Acetaminophen (10.0-30.0) ug/mL 05/09/22 05/09/22 Range/Units 15:25 15:25 MCV (84-94) fl MCH (28-32) pg Lymph % (Auto) (13.4-35.0) % Gray % (Auto) (0.0-7.3) % Lymph # (Auto) (1.2-5.4) K/mm3 Seg Neutrophils % (40.0-70.0) % Chloride (98-107) mmol/L BUN (9-20) mg/dL Creatinine (0.8-1.3) mg/dL Lactic Acid (0.7-2.0) mmol/L Salicylates < 0.3 L (2.8-20.0) mg/dL Acetaminophen 5.0 L (10.0-30.0) ug/mL Assessment and Plan - Patient Problems (1) Acute CVA (cerebrovascular accident) Current Visit: No Status: Acute Plan to address problem: CVA protocol: CTA, neuro check, seizure precaution of aspiration precaution, fall precaution, physical therapy consult, outpatient therapy consulted, speech therapy consulted, antiplatelet therapy, risk factor reduction, teleneurology consulted, echocardiogram, carotid Doppler. (2) Seizure disorder Current Visit: Yes Status: Acute Plan to address problem: Continue antiepileptic therapy with Keppra twice daily, supportive care, seizure precautions, neuro check. (3) Alcohol dependence Current Visit: Yes Status: Acute Qualifiers: Complication of substance-induced condition: with delirium Plan to address problem: CIWA protocol, thiamine, folic acid, multivitamin daily, banana bag. (4) Metabolic acidosis Current Visit: Yes Status: Acute Plan to address problem: IV fluid resuscitation therapy, BMP, repeat BMP in AM. (5) Metabolic encephalopathy Current Visit: Yes Status: Acute Plan to address problem: CTA, neuro check, seizure precautions, IV fluid resuscitation therapy, sup portive care. (6) DVT prophylaxis Current Visit: Yes Status: Acute Plan to address problem: SCD to bilateral lower extremities while in bed (7) Advance care planning Current Visit: Yes Status: Acute Plan to address problem: Disease education data, care plan discussed, diagnosis discussed, prognosis discussed, patient is full code, patient family acknowledged understanding and agreement with care plan, +30 minutes. (8) Preventative health care Current Visit: Yes Status: Acute Plan to address problem: Patient and family counseled regarding abstinence from alcohol, outpatient Alcoholics Anonymous follow-up, balanced diet, risk factor reduction, follow-up with primary care physician for all age and risk factor appropriate screening test. +30 minutes.
[2022-05-09] MEDS ORDERED: LORazepam 2 MG/ML VIAL IV PRN (18:11)
[2022-05-09] MEDS ORDERED: DOCUSATE SODIUM 100 MG CAP PO PRN (18:11)
[2022-05-09] MEDS ORDERED: THIAMINE 100 MG, FOLIC ACID 1 MG, MULTIPLE VITAMIN INJ, ADULT 10 ML in SODIUM CHLORIDE ... IV ONE (19:00)
[2022-05-09] MEDS: levETIRAcetam 500 MG TAB PO SCH (23:04)
[2022-05-09] MEDS: FAMOTIDINE 20 MG TAB PO SCH (23:04)
[2022-05-10] MEDS: LORazepam 2 MG/ML VIAL IV PRN (00:21)
[2022-05-10] MEDS: amLODIPine 10 MG TAB PO SCH (09:32)
[2022-05-10] MEDS: CLOPIDOGREL 75 MG TAB PO SCH (09:32)
[2022-05-10] MEDS: FOLIC ACID 1 MG TAB PO SCH (09:32)
[2022-05-10] MEDS: NICOTINE 14 MG/24 HR PATCH TD SCH (09:32)
[2022-05-10] MEDS: ASPIRIN 325 MG TAB PO SCH (09:32)
[2022-05-10] MEDS: MULTIVITAMINS,THER W-MINERALS TAB PO SCH (09:32)
[2022-05-10] MEDS: levETIRAcetam 500 MG TAB PO SCH ×2 (09:32→22:40)
[2022-05-10] MEDS: FAMOTIDINE 20 MG TAB PO SCH ×2 (09:32→22:40)
[2022-05-10] MEDS: THIAMINE 100 MG TAB PO SCH (09:32)
[2022-05-10] MEDS: MELOXICAM 7.5 MG TAB PO SCH (09:33)
[2022-05-10] MEDS ORDERED: NON-FORMULARY EACH (Meloxicam [Mobic] 15 MG Tablet) PO SCH (10:00)
--- NOTE | 2022-05-10 11:55 | Progress Note ---
Assessment and Plan Assessment and plan: #Acute CVA (cerebrovascular accident) -CT head, CTA head/neck unremarkable -Echocardiogram from 03/18/2022 reviewed, no PFO observed will not repeat echo at this hospital stay -MRI brain without contrast & carotid doppler pending -Teleneurology consulted in the ED -Lipid panel, A1c ordered -continue ASA + statin #Seizure disorder -Continue Keppra 2g BID -seizure precautions, neuro checks #Hypertension -Patient takes amlodipine 10 mg and hydrochlorothiazide 12.5 mg daily -amlodipine restarted, will restart HCTZ if BP worsens -goal SBP <160 #Alcohol dependence -[facility] protocol, thiamine, folic acid, multivitamin daily, banana bag. #Lactic acidosis-resolved #Acute metabolic encephalopathy-resolved -likely secondary to possible CVA vs TIA #Advanced care planning -Disease education data, care plan discussed, diagnosis discussed, prognosis discussed, patient is full code, patient family acknowledged understanding and agreement with care plan, +30 minutes. History Interval history: Patient reports not having any issues. He was brought to the ED by his . He reports feeling better and wants to go home. Discussed current care plan and the need for him to stay to finish full evaluation. Hospitalist Physical - Physical exam Narrative exam: GENERAL: Thin male. In no acute distress. HEENT: Normocephalic. Atraumatic. NECK: Supple. CHEST/LUNGS: CTAB on room air HEART/CARDIOVASCULAR: RRR. No murmur, rubs or gallops appreciated. ABDOMEN: +BS. NT/ND. SKIN: No rashes noted. NEURO: No focal motor deficit. Follows all commands. MUSCULOSKELETAL: No joint effusion EXTREMITIES: No cyanosis, clubbing or edema. PSYCH: Cooperative. - Constitutional Vitals: Temp Pulse Resp BP Pulse Ox 97.9 F 79 18 99/66 96 05/10/22 08:07 05/10/22 08:07 05/10/22 08:07 05/10/22 08:07 05/10/22 08:07 General appearance: Present: mild distress, disheveled HEART Score - HEART Score Troponin: Troponin T < 0.010 ng/mL (0.00-0.029) 05/09/22 15:25 Results - Labs CBC & Chem 7: 05/09/22 15:25 05/09/22 15:25 Labs: Laboratory Last Values WBC 7.6 K/mm3 (4.5-11.0) 05/09/22 15:25 RBC 3.71 M/mm3 (3.65-5.03) 05/09/22 15:25 Hgb 12.5 gm/dl (11.8-15.2) 05/09/22 15:25 Hct 37.7 % (35.5-45.6) 05/09/22 15:25 MCV 102 fl (84-94) H 05/09/22 15:25 MCH 34 pg (28-32) H 05/09/22 15:25 MCHC 33 % (32-34) 05/09/22 15:25 RDW 13.9 % (13.2-15.2) 05/09/22 15:25 Plt Count 243 K/mm3 (140-440) 05/09/22 15:25 Lymph % (Auto) 11.1 % (13.4-35.0) L 05/09/22 15:25 [place] % (Auto) 8.1 % (0.0-7.3) H 05/09/22 15:25 Eos % (Auto) 0.1 % (0.0-4.3) 05/09/22 15:25 Baso % (Auto) 0.6 % (0.0-1.8) 05/09/22 15:25 Lymph # (Auto) 0.9 K/mm3 (1.2-5.4) L 05/09/22 15:25 [place] # (Auto) 0.6 K/mm3 (0.0-0.8) 05/09/22 15:25 Eos # (Auto) 0.0 K/mm3 (0.0-0.4) 05/09/22 15:25 Baso # (Auto) 0.0 K/mm3 (0.0-0.1) 05/09/22 15:25 Seg Neutrophils % 80.1 % (40.0-70.0) H 05/09/22 15:25 Seg Neutrophils # 6.1 K/mm3 (1.8-7.7) 05/09/22 15:25 PT 12.8 Sec. (12.2-14.9) 05/09/22 15:25 INR 0.87 (0.87-1.13) 05/09/22 15:25 APTT 31.8 Sec. (24.2-36.6) 05/09/22 15:25 Thrombin Time 18.7 Sec. (15.1-19.6) 05/09/22 15:25 Sodium 139 mmol/L (137-145) 05/09/22 15:25 Potassium 3.6 mmol/L (3.6-5.0) 05/09/22 15:25 Chloride 97.2 mmol/L (98-107) L 05/09/22 15:25 Carbon Dioxide 27 mmol/L (22-30) 05/09/22 15:25 Anion Gap 18 mmol/L 05/09/22 15:25 BUN 8 mg/dL (9-20) L 05/09/22 15:25 Creatinine 0.4 mg/dL (0.8-1.3) L 05/09/22 15:25 Estimated GFR > 60 ml/min 05/09/22 15:25 BUN/Creatinine Ratio 20 % 05/09/22 15:25 Glucose 94 mg/dL (75-100) 05/09/22 15:25 Lactic Acid 1.30 mmol/L (0.7-2.0) 05/09/22 23:22 Calcium 9.0 mg/dL (8.4-10.2) 05/09/22 15:25 Total Bilirubin 0.40 mg/dL (0.1-1.2) 05/09/22 15:25 AST 38 units/L (5-40) 05/09/22 15:25 ALT 26 units/L (7-56) 05/09/22 15:25 Alkaline Phosphatase 47 units/L (35-129) 05/09/22 15:25 Ammonia 39.0 umol/L (25-60) 05/09/22 15:25 Total Creatine Kinase 77 units/L (55-170) 05/09/22 15:37 CK-MB (CK-2) 1.4 ng/mL (0.0-4.0) 05/09/22 15:37 CK-MB (CK-2) Rel Index 1.8 (0-4) 05/09/22 15:37 Troponin T < 0.010 ng/mL (0.00-0.029) 05/09/22 15:25 Total Protein 7.6 g/dL (6.3-8.2) 05/09/22 15:25 Albumin 3.9 g/dL (3.9-5) 05/09/22 15:25 Albumin/Globulin Ratio 1.1 % 05/09/22 15:25 Urine Color Yellow (Yellow) 05/09/22 17:17 Urine Turbidity Clear (Clear) 05/09/22 17:17 Urine pH 6.0 (5.0-7.0) 05/09/22 17:17 Ur Specific [place] 1.013 (1.003-1.030) 05/09/22 17:17 Urine Protein <15 mg/dl mg/dL (Negative) 05/09/22 17:17 Urine Glucose (UA) Neg mg/dL (Negative) 05/09/22 17:17 Urine Ketones Neg mg/dL (Negative) 05/09/22 17:17 Urine Blood Neg (Negative) 05/09/22 17:17 Urine Nitrite Neg (Negative) 05/09/22 17:17 Urine Bilirubin Neg (Negative) 05/09/22 17:17 Urine Urobilinogen 4.0 mg/dL (<2.0) 05/09/22 17:17 Ur Leukocyte Esterase Neg (Negative) 05/09/22 17:17 Urine WBC (Auto) 1.0 /HPF (0.0-6.0) 05/09/22 17:17 Urine RBC (Auto) 1.0 /HPF (0.0-6.0) 05/09/22 17:17 U Epithel Cells (Auto) 1.0 /HPF (0-13.0) 05/09/22 17:17 Hyaline Casts 2 /LPF 05/09/22 17:17 Urine Mucus Few /HPF 05/09/22 17:17 Salicylates < 0.3 mg/dL (2.8-20.0) L 05/09/22 15:25 Urine Opiates Screen Negative 05/09/22 17:17 Urine Methadone Screen Negative 05/09/22 17:17 Acetaminophen 5.0 ug/mL (10.0-30.0) L 05/09/22 15:25 Ur Barbiturates Screen Negative 05/09/22 17:17 Ur Phencyclidine Scrn Negative 05/09/22 17:17 Ur Amphetamines Screen Negative 05/09/22 17:17 U Benzodiazepines Scrn Negative 05/09/22 17:17 Urine Cocaine Screen Negative 05/09/22 17:17 U Marijuana (THC) Screen Negative 05/09/22 17:17 Drugs of Abuse Note Disclamer 05/09/22 17:17 Plasma/Serum Alcohol 0.04 % (0-0.07) 05/09/22 15:25 Sánchez/IV: Voiding Method Urinal Active Medications - Current Medications Current Medications: Generic Name Dose Route Start Last Admin Trade Name Freq PRN Reason Stop Dose Admin Acetaminophen 650 mg 05/09/22 18:04 Acetaminophen 325 Mg Tab PO Q4H PRN Pain, Mild (1-3) Amlodipine Besylate 10 mg 05/10/22 10:00 05/10/22 09:32 Amlodipine 10 Mg Tab PO Not Given QDAY KEYONA Aspirin 325 mg 05/10/22 10:00 05/10/22 09:32 Aspirin 325 Mg Tab PO 325 mg QDAY KEYONA Administration Atorvastatin Calcium 40 mg 05/09/22 22:00 05/09/22 23:05 Atorvastatin 40 Mg Tab PO 40 mg QHS KEYONA Administration Bisacodyl 10 mg 05/09/22 18:04 Bisacodyl 10 Mg Rect Supp CA QDAY PRN Constipation Clopidogrel Bisulfate 75 mg 05/10/22 10:00 05/10/22 09:32 Clopidogrel 75 Mg Tab PO 75 mg QDAY KEYONA Administration Docusate Sodium 100 mg 05/09/22 18:11 Docusate Sodium 100 Mg Cap PO BID PRN Constipation Famotidine 20 mg 05/09/22 22:00 05/10/22 09:32 Famotidine 20 Mg Tab PO 20 mg BID KEYONA Administration Folic Acid 1 mg 05/10/22 10:00 05/10/22 09:32 Folic Acid 1 Mg Tab PO 1 mg QDAY KEYONA Administration Hydromorphone HCl 0.5 mg 05/09/22 18:04 Hydromorphone 0.5 Mg/0.5 Ml Inj IV Q23H PRN Pain , Severe (7-10) Levetiracetam 1,000 mg 05/09/22 22:00 05/10/22 09:32 Levetiracetam 500 Mg Tab PO 1,000 mg BID KEYONA Administration Lorazepam 2 mg 05/09/22 18:11 05/10/22 00:21 Lorazepam 2 Mg/Ml Vial IV 2 mg Q1HR PRN Administration CIWA-Ar 8-15 Lorazepam 4 mg 05/09/22 18:11 Lorazepam 2 Mg/Ml Vial IV Q1HR PRN CIWA-Ar 16-25 Magnesium Hydroxide 30 ml 05/09/22 18:04 Magnesium Hydroxide (Mom) Oral Liqd Udc PO Q4H PRN Constipation Meloxicam 15 mg 05/10/22 10:00 05/10/22 09:33 Meloxicam 7.5 Mg Tab PO 15 mg QDAY KEYONA Administration Metoclopramide HCl 10 mg 05/09/22 18:04 Metoclopramide 10 Mg Tab PO Q6H PRN Nausea And Vomiting Multivitamins/Minerals 1 each 05/10/22 10:00 05/10/22 09:32 Multivitamins,Ther W-Minerals Tab PO 1 each QDAY KEYONA Administration Nicotine 14 mg 05/10/22 10:00 05/10/22 09:32 Nicotine 14 Mg/24 Hr Patch TD 14 mg QDAY KEYONA Administration Ondansetron HCl 4 mg 05/09/22 18:04 Ondansetron 4 Mg/2 Ml Inj IV Q8H PRN Nausea And Vomiting Oxycodone/Acetaminophen 1 tab 05/09/22 18:04 Oxycodone /Acetaminophen 5-325mg Tab PO Q16H PRN Pain, Moderate (4-6) Promethazine HCl 25 mg 05/09/22 18:04 Promethazine 25 Mg Rect Supp CA Q6H PRN Nausea And Vomiting Sodium Chloride 10 ml 05/09/22 18:04 Sodium Chloride 0.9% 10 Ml Flush Syringe IV PRN PRN LINE FLUSH Thiamine HCl 100 mg 05/10/22 10:00 05/10/22 09:32 Thiamine 100 Mg Tab PO 100 mg QDAY KEYONA Administration
[2022-05-10 12:38] LABS: Chol/HDL Ratio 2.66 %
--- NOTE | 2022-05-10 21:34 | Electrocardiograph Report ---
[facility] Test Date: 2022-05-09 Test Time: 17:28:15 Pat Name: MARTELL MARCELINO Department: Room: A474 1 Gender: M Boiler Room Operator: KAREN : 1965 Requested By: ARIES HARRISON Order Number: [id number] Reading MD: Morris Tejada Measurements Intervals [place] Rate: 89 P: 71 [place]: 155 QRS: 25 QRSD: 89 T: 47 QT: 416 QTc: 506 Interpretive Statements Sinus rhythm Anteroseptal infarct, age indeterminate Prolonged QT interval Compared to ECG 03/18/2022 10:29:11 No significant change Electronically Signed On 05-10-2022 21:34:09 EDT by Morris Tejada
[2022-05-11] MEDS: LORazepam 2 MG/ML VIAL IV PRN ×3 (05:04→08:47)
[2022-05-11 08:04] VITALS: BP 119/89
--- NOTE | 2022-05-11 11:18 | Magnetic Resonance Report ---
MR brain wo con INDICATION / CLINICAL INFORMATION: 56 years Male; r/o new stroke, AMS, PATIENT MOTION, BEST POSSIBLE EXAM. TECHNIQUE: Multiplanar, multisequence MR images of the brain were obtained. COMPARISON: The study is compared to previous MRI of 03/19/2022. FINDINGS: BRAIN / INTRACRANIAL CONTENTS: The motion degrades the image quality despite repeat imaging. However, there is continued encephalomalacia predominantly involving left frontal and temporal lobes most con sistent with old infarcts. The diffusion imaging reveals no clear evidence of acute infarction. There is continued mild cerebral atrophy and prominence of the ventricular system. No developing extr a-axial fluid collection or significant mass effect is identified. CRANIOCERVICAL JUNCTION: No significant abnormality. 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 The intracranial ICAs grossly demonstrate appropriate signal voids. ORBITS: The degree of motion degrades evaluation of the orbits. SINUSES / MASTOIDS: There is developing mild mucosal thickening within the right maxillary sinus. ADDITIONAL FINDINGS: There is persistent 1 cm focus of well-circumscribed decreased T1 and T2-weighte d signal involving the right premaxillary soft tissues which is unchanged and demonstrates well circu mscribed margins. IMPRESSION: 1. The study is limited by motion. However, there is continued old left MCA infarct as described with out evidence of recent infarction or significant interval change from 03/19/2022. 2. There is developing mild mucosal thickening within the right maxillary sinus. Signer Name: Patrick Murrell MD Signed: 05/11/2022 11:14 AM Workstation Name: [id number]
[2022-05-11] MEDS: NICOTINE 14 MG/24 HR PATCH TD SCH (11:30)
[2022-05-11] MEDS: amLODIPine 10 MG TAB PO SCH (11:30)
[2022-05-11] MEDS: FOLIC ACID 1 MG TAB PO SCH (11:31)
[2022-05-11] MEDS: ASPIRIN 325 MG TAB PO SCH (11:31)
[2022-05-11] MEDS: levETIRAcetam 500 MG TAB PO SCH (11:31)
[2022-05-11] MEDS: MELOXICAM 7.5 MG TAB PO SCH (11:31)
[2022-05-11] MEDS: FAMOTIDINE 20 MG TAB PO SCH (11:31)
[2022-05-11] MEDS: THIAMINE 100 MG TAB PO SCH (11:32)
[2022-05-11] MEDS: MULTIVITAMINS,THER W-MINERALS TAB PO SCH (11:32)
[2022-05-11] MEDS: CLOPIDOGREL 75 MG TAB PO SCH (11:32)
--- NOTE | 2022-05-11 12:29 | Vascular Lab Report ---
DUPLEX DOPPLER ULTRASOUND CAROTID, BILATERAL INDICATION / CLINICAL INFORMATION: stroke. COMPARISON: CTA neck 05/09/2022. FINDINGS: RIGHT CAROTID: Mild to moderate atherosclerotic plaque. - PLAQUE ESTIMATE (%): < 50% - CCA velocity: 52 cm/sec. - ICA peak systolic velocity: 78 cm/sec. - ICA/CCA PSV Ratio: Less than 2. Right Vertebral Artery: Antegrade flow. LEFT CAROTID: Moderate atherosclerotic plaque. - PLAQUE ESTIMATE (%): < 50% - CCA velocity: 47 cm/sec. - ICA peak systolic velocity: 55 cm/sec. - ICA/CCA PSV Ratio: Less than 2. Left Vertebral Artery: Antegrade flow. IMPRESSION: 1. Right Internal Carotid Artery: Less than 50% diameter stenosis. 2. Left Internal Carotid Artery: Less than 50% diameter stenosis. Velocity criteria are extrapolated from diameter data as defined by the Society of Radiologists [place] [facility] Consensus Conference, Radiology 2003; 229;340-346. NO STENOSIS (NORMAL) - Plaque = none; ICA PSV < 125 cm/sec; ICA/CCA PSV Ratio < 2.0 <50% STENOSIS - Plaque < 50%; ICA PSV < 125 cm/sec; ICA/CCA PSV Ratio < 2.0 50-69% STENOSIS - Plaque > 50%; ICA PSV = 125-230 cm/sec; ICA/CCA PSV Ratio = 2.0-4.0 >70% BUT <100% STENOSIS - Plaque > 50%; ICA PSV > 230 cm/sec; ICA/CCA PSV Ratio > 4.0 NEAR OCCLUSION - Plaque = visible lumen; ICA PSV = high/low/none; ICA/CCA PSV Ratio = variable TOTAL OCCLUSION - Plaque = no lumen; ICA PSV = none; ICA/CCA PSV Ratio = N/A Scribed by: Leilani Montelongo RDMS, RVT, RMSKS Scribed: 05/11/2022 11:20 AM I have reviewed the images, agree with this report, and edited this report as needed. Signer Name: Jame Petty MD Signed: 05/11/2022 12:24 PM Workstation Name: [id number]
--- NOTE | 2022-05-11 13:16 | Discharge Summary ---
Providers - Providers Date of Admission: 05/09/22 18:04 Date of discharge: 05/11/22 Attending physician: RUSTY ESCALONA MD 05/09/22 18:04 Occupational Therapy Evaluate and Treat [CONS] Routine Comment: Reason For Exam: Neuro deficits Physical Therapy Evaluation and Treat [CONS] Routine Comment: Reason For Exam: Neuro deficits 05/09/22 18:05 Speech Therapy Evaluation and Treat [CONS] Routine Reason For Exam: swallow eval Primary care physician: CLOTH BIN PACKER Hospitalization Reason for admission: CVA rule out Condition: Stable Hospital course: 56-year-old male with history of seizure disorder, hypertension, alcohol dependence and prior stroke who was brought to the emergency department by his . Patient denies any symptoms, but appreciated right upper extremity weakness which resolved on its own. Initial CT head showed no findings to suggest acute/subacute infarction. CT angiogram of the head and neck showed no significant abnormality. Carotid Doppler showed less than 50% stenosis bilaterally. Echocardiogram was reviewed from hospitalization in February and no PFO was observed at that time. Once stable patient was discharged home in care of . Disposition: 01 HOME / SELF CARE / HOMELESS Final Discharge Diagnosis (Prints w/discharge instructions): Acute CVA ruled out, possible TIA. Seizure disorder. Hypertension. Alcohol dependence. Lactic acidosis. Acute metabolic encephalopathy Time spent for discharge: 35 minutes Core Measure Documentation - Palliative Care Palliative Care/ Comfort Measures: Not Applicable - Core Measures Any of the following diagnoses?: stroke, history only - Stroke Discharge Requirements Statin for LDL = or >70 mg/dl on DC: Yes Anticoag for atrial fib/atrial flutter: Not Applicable Antithrombotic for ischemic stroke: Yes Exam - Physical Exam Narrative exam: GENERAL: Thin male. In no acute distress. HEENT: Normocephalic. Atraumatic. NECK: Supple. CHEST/LUNGS: CTAB on room air HEART/CARDIOVASCULAR: RRR. No murmur, rubs or gallops appreciated. ABDOMEN: +BS. NT/ND. SKIN: No rashes noted. NEURO: No focal motor deficit. Follows all commands and is ambulatory. MUSCULOSKELETAL: No joint effusion EXTREMITIES: No cyanosis, clubbing or edema. PSYCH: Cooperative. - Constitutional Vitals: Temp Pulse Resp BP Pulse Ox 98.2 F 86 16 119/89 100 05/11/22 07:42 05/11/22 07:42 05/11/22 04:12 05/11/22 07:42 05/11/22 07:42 Plan Activity: advance as tolerated Diet: low salt Care Plan Goals: Please follow-up with your primary care provider. Please try to cut back on the amount that you drink. Please take all medications as prescribed. Follow up with: PRIMARY CARE, [Primary Care Provider] - 3-5 Days Prescriptions: AtorvaSTATin [Lipitor] 40 mg PO QHS 90 Days #90 tablet Aspirin 325 mg PO QDAY 90 Days #90 tablet levETIRAcetam [Keppra TAB] 1,000 mg PO BID 30 Days #120 tablet Amlodipine Besylate [Norvasc] 10 mg PO QDAY 90 Days #90 tab Clopidogrel [Plavix] 75 mg PO QDAY 30 Days #30 tablet
== END 2022-05-11 14:15 | disposition home health service (06) | DRG 69 ==
LOC: ED 14:29 → 4A 18:04
PROVIDERS: ADMIT Internal Medicine; ATTEND Student in an Organized Health Care Education/Training Program
DX: G45.9 Transient cerebral ischemic attack, unspecified (principal); G93.41 Metabolic encephalopathy; F17.200 Nicotine dependence, unspecified, uncomplicated; G40.909 Epilepsy, unspecified, not intractable, without status epilepticus; E87.2 Acidosis; F10.20 Alcohol dependence, uncomplicated; Y90.9 Presence of alcohol in blood, level not specified; I10 Essential (primary) hypertension; Z82.49 Family history of ischemic heart disease and other diseases of the circulatory system; Z79.899 Other long term (current) drug therapy
CPT/HCPCS: 36415; 70450; 70496; 70498; 70551; 71045; 80053; 80061; 80307; 80320; 81001; 82140; 82550; 82553; 83036; 84484; 85025; 85610; 85670; 85730; 93005; 93880; 99406; G0378; J3490; G0480; J2060; J3411; J7030; Q9967

== ENCOUNTER 2022-06-06 20:07 | Emergency (ER) | payer MEDICAID ==
--- NOTE | 2022-06-06 20:15 | Event Note ---
Date: 06/06/22 Verbal report received from emergency medical services. EMS documentation not available at time of chart dictation 56-year-old gentleman with a history of seizure, stroke, alcoholism, who is brought to the hospital by emergency medical services with an EMS articulated chief complaint of altered mental status. The patient's last known well time is not explicitly known. EMS reports normal Accu-Chek in the field. They report unremarkable vital signs with exception of O2 sat of 90%. In the emergency room, the patient is awake, breathing spontaneously, and moving 4 extremities. Obtain appropriate laboratory studies, x-ray the chest, EKG, noncontrast CT scan of the brain. Detailed history and physical to be performed by oncoming pro vider Vital Signs 06/06/22 20:09 Temperature 98.2 F Pulse Rate 109 H Respiratory 18 Rate Blood Pressure 126/82 [Left] O2 Sat by Pulse 95 Oximetry
--- NOTE | 2022-06-06 21:24 | Cat Scan Report ---
CT HEAD WITHOUT CONTRAST INDICATION / CLINICAL INFORMATION: Altered Mental Status. TECHNIQUE: All CT scans at this location are performed using CT dose reduction for ALARA by means of automated exposure control. COMPARISON: MRI brain without contrast performed on 05/11/2022. FINDINGS: BRAIN PARENCHYMA: No acute intracranial hemorrhage. Expected changes from a previously reported left MCA infarct are noted. No evidence of a large acute territorial infarct. No mass effect or midline sh ift. VENTRICULAR SYSTEM/EXTRA-AXIAL SPACES: Ventricles are normal for age. No extra-axial fluid collection . ORBITS: Normal as visualized. SKELETAL SYSTEM/SOFT TISSUES: Normal bones and soft tissues. PARANASAL SINUSES/MASTOID AIR CELLS: No significant abnormality. ADDITIONAL FINDINGS: None. IMPRESSION: 1. No acute intracranial abnormality. No significant interval changes. Signer Name: Gadiel Mckeon MD Signed: 06/06/2022 9:19 PM Workstation Name: [id number]
--- NOTE | 2022-06-06 21:25 | XRay Report ---
CHEST 1 VIEW 06/06/2022 8:18 PM INDICATION / CLINICAL INFORMATION: Altered Mental Status. COMPARISON: One view of the chest from 05/09/2022. FINDINGS: SUPPORT DEVICES: None. HEART / MEDIASTINUM: No significant abnormality. LUNGS / PLEURA: No significant pulmonary abnormality. No significant pleural effusion. No pneumothora x. ADDITIONAL FINDINGS: Old left rib fractures are unchanged. IMPRESSION: 1. No acute abnormality of the chest. No significant interval changes. Signer Name: Gadeil Mckeon MD Signed: 06/06/2022 9:20 PM Workstation Name: [id number]
[2022-06-06 21:26] LABS: Hemoglobin 11.6 gm/dl (11.8-15.2); Mean Corpuscular HGB Conc 34 % (32-34); Mean Corpuscular Volume 100 fl (84-94); Platelet Count 151 K/mm3 (140-440); Red Cell Distribution Width 14.1 % (13.2-15.2)
[2022-06-06 21:46] LABS: INR 0.96 (0.87-1.13)
[2022-06-06 21:48] LABS: Partial Thromboplastin Time 34.6 Sec. (24.2-36.6)
[2022-06-06 22:46] LABS: Alanine Aminotransferase 34 units/L (7-56); Albumin 3.4 g/dL (3.9-5); Blood Urea Nitrogen 15 mg/dL (9-20); Calcium 8.6 mg/dL (8.4-10.2); Hemolysis Index 3
[2022-06-06 22:49] LABS: BUN/Creatinine Ratio 25
--- NOTE | 2022-06-06 23:06 | Emergency Department Report ---
ED General Adult HPI - General Chief complaint: Altered Mental Status Stated complaint: AMS PUI?: No Time Seen by Provider: 06/06/22 20:16 Source: EMS Mode of arrival: Stretcher Limitations: No Limitations - History of Present Illness Initial comments: 56-year-old gentleman with a history of seizure, stroke, alcoholism, who is b rought to the hospital by emergency medical services with an EMS articulated chief complaint of altered mental status. The patient's last known well time is not explicitly known. EMS reports normal Accu-Chek in the field. They report unremarkable vital signs with exception of O2 sat of 90%. In the emergency room, the patient is awake, breathing spontaneously, and moving 4 extremities. -: hour(s) Severity scale (0 -10): 3 Associated Symptoms: confusion. denies: chest pain, cough, diaphoresis Treatments Prior to Arrival: none - Related Data Home Medications Medication Instructions Recorded Confirmed Last Taken Cholecalciferol Vit D3 [Vitamin D3 5,000 unit PO QWEEK 05/10/22 05/10/22 Unknown 1,000 UNIT TAB] Phenytoin [Dilantin] 100 mg PO Q8HR 05/10/22 05/10/22 Unknown Previous Rx's Medication Instructions Recorded Last Taken Type Amlodipine Besylate [Norvasc] 10 mg PO QDAY 90 Days #90 tab 05/11/22 Unknown Rx Aspirin 325 mg PO QDAY 90 Days #90 tablet 05/11/22 Unknown Rx AtorvaSTATin [Lipitor] 40 mg PO QHS 90 Days #90 tablet 05/11/22 Unknown Rx Clopidogrel [Plavix] 75 mg PO QDAY 30 Days #30 tablet 05/11/22 Unknown Rx levETIRAcetam [Keppra TAB] 1,000 mg PO BID 30 Days #120 tablet 05/11/22 Unknown Rx Allergies Allergy/AdvReac Type Severity Reaction Status Date / Time No Known Allergies Allergy Verified 06/06/22 20:12 ED Review of Systems ROS: Stated complaint: AMS Other details as noted in HPI Constitutional: denies: chills, fever Eyes: denies: eye pain, eye discharge, vision change ENT: denies: ear pain, throat pain Respiratory: denies: cough, shortness of breath, wheezing Cardiovascular: denies: chest pain, palpitations Endocrine: no symptoms reported Gastrointestinal: denies: abdominal pain, nausea, diarrhea Genitourinary: denies: urgency, dysuria Musculoskeletal: denies: back pain, joint swelling, arthralgia Skin: denies: rash, lesions Neurological: denies: headache, weakness, paresthesias Psychiatric: denies: anxiety, depression Hematological/Lymphatic: denies: easy bleeding, easy bruising ED Past Medical Hx - Past Medical History Hx Hypertension: Yes Hx Seizures: Yes Additional medical history: Traumatic brain injury - Social History Smoking Status: Current Every Day Smoker - Medications Home Medications: Home Medications Medication Instructions Recorded Confirmed Last Taken Type Cholecalciferol Vit D3 [Vitamin D3 5,000 unit PO QWEEK 05/10/22 05/10/22 Unknown History 1,000 UNIT TAB] Phenytoin [Dilantin] 100 mg PO Q8HR 05/10/22 05/10/22 Unknown History Amlodipine Besylate [Norvasc] 10 mg PO QDAY 90 Days #90 tab 05/11/22 Unknown Rx Aspirin 325 mg PO QDAY 90 Days #90 tablet 05/11/22 Unknown Rx AtorvaSTATin [Lipitor] 40 mg PO QHS 90 Days #90 tablet 05/11/22 Unknown Rx Clopidogrel [Plavix] 75 mg PO QDAY 30 Days #30 tablet 05/11/22 Unknown Rx levETIRAcetam [Keppra TAB] 1,000 mg PO BID 30 Days #120 tablet 05/11/22 Unknown Rx ED Physical Exam - General Limitations: No Limitations General appearance: alert, in no apparent distress - Head Head exam: Present: atraumatic, normocephalic - Eye Eye exam: Present: normal appearance - ENT ENT exam: Present: mucous membranes moist - Neck Neck exam: Present: normal inspection - Respiratory Respiratory exam: Present: normal lung sounds bilaterally. Absent: respiratory distress - Cardiovascular Cardiovascular Exam: Present: regular rate, normal rhythm. Absent: systolic murmur, diastolic murmur, rubs, gallop - GI/Abdominal GI/Abdominal exam: Present: soft, normal bowel sounds - Rectal Rectal exam: Present: deferred - Extremities Exam Extremities exam: Present: normal inspection - Back Exam Back exam: Present: normal inspection - Neurological Exam Neurological exam: Present: alert, oriented X3 - Psychiatric Psychiatric exam: Present: normal affect, normal mood - Skin Skin exam: Present: warm, dry, intact, normal color. Absent: rash ED Course Vital Signs 06/06/22 06/06/22 20:09 20:34 Temperature 98.2 F 98.7 F Pulse Rate 109 H 93 H Respiratory 18 18 Rate Blood Pressure 126/82 119/80 [Left] O2 Sat by Pulse 95 94 Oximetry ED Medical Decision Making - Lab Data Result diagrams: 06/06/22 20:58 06/06/22 20:58 - Radiology Data Radiology results: report reviewed, image reviewed - Medical Decision Making work up unremarkable , head ct negative vss no distress awake and alert Critical care attestation.: If time is entered above; I have spent that time in minutes in the direct care of this critically ill patient, excluding procedure time. ED Disposition Clinical Impression: Altered mental status Disposition: 01 HOME / SELF CARE / HOMELESS Is pt being admited?: No Does the pt Need Aspirin: No Condition: Stable Referrals: CLARENCE SANTOS MD [Primary Care Provider] - 3-5 Days
[2022-06-06 23:20] LABS: C-Reactive Protein 32.1 mg/dL (0.00-1.30)
[2022-06-06 23:59] VITALS: BP 139/88
[2022-06-07 00:12] LABS: Band Neutrophils # (Manual) 0.1 K/mm3; Basophils % (Manual) 0 % (0.0-1.8); Eosinophils % (Manual) 0 % (0.0-4.3); Total Cells Counted 100
[2022-06-07 00:13] LABS: Anisocytosis 1+; Platelet Estimate Consistent w Auto
[2022-06-07 01:59] LABS: Bilirubin,Urine NEG (Negative); Blood,Urine SM (Negative); Color,Urine Yellow (Yellow)
[2022-06-07 02:01] LABS: Bacteria,Urine 1+ /HPF (Negative); Mucus,Urine FEW /HPF; RBC,Urine < 1.0 /HPF (0.0-6.0)
== END 2022-06-06 23:58 | disposition home or self-care (01) ==
LOC: ED 20:07
DX: R41.82 Altered mental status, unspecified (principal); I10 Essential (primary) hypertension; F17.200 Nicotine dependence, unspecified, uncomplicated
CPT/HCPCS: 36415; 70450; 71045; 80053; 80320; 81001; 82140; 83880; 84443; 84484; 85007; 85025; 85610; 85730; 86140; 87086; 99284; G0480

== ENCOUNTER 2022-07-26 11:10 | Emergency (ER) | payer MEDICAID ==
[2022-07-26] MEDS ORDERED: SODIUM CHLORIDE 0.9% 500 ML 500 ML IV ONE (12:07)
--- NOTE | 2022-07-26 12:12 | Emergency Department Report ---
ED Seizure HPI - General Chief Complaint: Seizure Stated Complaint: SEIZURE Time Seen by Provider: 07/26/22 11:23 Source: EMS Mode of arrival: Stretcher Limitations: Altered Mental Status - History of Present Illness Initial Comments: This is a 56-year-old male with a history of CVA, alcohol dependence, seizure disorder, and episodes of confusion who presents to the emergency department after a witnessed seizure at home. Per EMS patient was altered, and he continues to be so in the emergency department, so is not a poor historian. Collateral information is from the triage information stating that he had been drinking alcohol last night. Patient is alert and oriented to person and place, but not to time or situation. Patient says he thinks he is taking his seizure medications. Patient has no complaints, currently, and just repeats "I am ready to go home". - Related Data Home Medications Medication Instructions Recorded Confirmed Last Taken Cholecalciferol Vit D3 [Vitamin D3 5,000 unit PO QWEEK 05/10/22 05/10/22 Unknown 1,000 UNIT TAB] Previous Rx's Medication Instructions Recorded Last Taken Type Amlodipine Besylate [Norvasc] 10 mg PO QDAY 90 Days #90 tab 05/11/22 Unknown Rx Aspirin 325 mg PO QDAY 90 Days #90 tablet 05/11/22 Unknown Rx AtorvaSTATin [Lipitor] 40 mg PO QHS 90 Days #90 tablet 05/11/22 Unknown Rx Clopidogrel [Plavix] 75 mg PO QDAY 30 Days #30 tablet 05/11/22 Unknown Rx Phenytoin [Dilantin] 100 mg PO Q8HR #90 07/26/22 Unknown Rx levETIRAcetam [Keppra TAB] 1,000 mg PO BID 30 Days #60 tablet 07/26/22 Unknown Rx Allergies Allergy/AdvReac Type Severity Reaction Status Date / Time No Known Allergies Allergy Verified 07/26/22 11:13 ED Review of Systems ROS: Stated complaint: SEIZURE Other details as noted in HPI Comment: Unobtainable due to pts medical conditions (Unable to fully obtain secondary to patient's altered mental status (unknown if this is baseline)) Constitutional: no symptoms reported Eyes: denies: eye pain, vision change ENT: denies: throat pain Respiratory: denies: shortness of breath Cardiovascular: denies: chest pain Endocrine: no symptoms reported Gastrointestinal: nausea. denies: abdominal pain Musculoskeletal: denies: back pain, joint swelling, arthralgia, myalgia Skin: denies: lesions Neurological: confusion, other (1 seizure). denies: headache, paresthesias Psychiatric: denies: anxiety, depression Hematological/Lymphatic: denies: easy bleeding, easy bruising ED Past Medical Hx - Past Medical History Hx Hypertension: Yes Hx Seizures: Yes Additional medical history: Traumatic brain injury - Social History Smoking Status: Current Every Day Smoker - Medications Home Medications: Home Medications Medication Instructions Recorded Confirmed Last Taken Type Cholecalciferol Vit D3 [Vitamin D3 5,000 unit PO QWEEK 05/10/22 05/10/22 Unknown History 1,000 UNIT TAB] Amlodipine Besylate [Norvasc] 10 mg PO QDAY 90 Days #90 tab 05/11/22 Unknown Rx Aspirin 325 mg PO QDAY 90 Days #90 tablet 05/11/22 Unknown Rx AtorvaSTATin [Lipitor] 40 mg PO QHS 90 Days #90 tablet 05/11/22 Unknown Rx Clopidogrel [Plavix] 75 mg PO QDAY 30 Days #30 tablet 05/11/22 Unknown Rx Phenytoin [Dilantin] 100 mg PO Q8HR #90 07/26/22 Unknown Rx levETIRAcetam [Keppra TAB] 1,000 mg PO BID 30 Days #60 tablet 07/26/22 Unknown Rx ED Physical Exam - General Limitations: Altered Mental Status General appearance: alert, in no apparent distress, other (Alert and oriented x2 only) - Head Head exam: Present: atraumatic, normocephalic - Eye Eye exam: Present: normal appearance, PERRL, EOMI - ENT ENT exam: Present: mucous membranes moist - Neck Neck exam: Present: normal inspection - Respiratory Respiratory exam: Present: normal lung sounds bilaterally. Absent: respiratory distress, wheezes, rales, rhonchi - Cardiovascular Cardiovascular Exam: Present: normal rhythm, tachycardia. Absent: systolic murmur, diastolic murmur, rubs, gallop - GI/Abdominal GI/Abdominal exam: Present: soft, normal bowel sounds. Absent: distended, tenderness - Rectal Rectal exam: Present: deferred - Extremities Exam Extremities exam: Present: normal inspection - Back Exam Back exam: Present: normal inspection - Neurological Exam Neurological exam: Present: alert, altered, CN II-XII intact - Psychiatric Psychiatric exam: Present: normal affect, normal mood - Skin Skin exam: Present: warm, dry, intact, normal color. Absent: rash ED Course Vital Signs 07/26/22 07/26/22 07/26/22 11:17 11:30 11:46 Temperature Pulse Rate 106 H 104 H 106 H Respiratory 21 16 19 Rate Blood Pressure 134/88 118/83 O2 Sat by Pulse 91 89 94 Oximetry 07/26/22 07/26/22 07/26/22 12:00 12:07 12:16 Temperature 97.8 F Pulse Rate 102 H 101 H Respiratory 13 21 Rate Blood Pressure 118/83 120/86 O2 Sat by Pulse 92 91 Oximetry 07/26/22 07/26/22 07/26/22 12:30 12:46 13:00 Temperature Pulse Rate 100 H 102 H 99 H Respiratory 16 17 14 Rate Blood Pressure 120/86 120/86 120/86 O2 Sat by Pulse 91 Oximetry 07/26/22 07/26/22 07/26/22 13:16 13:30 13:46 Temperature Pulse Rate 97 H 97 H 104 H Respiratory 15 12 16 Rate Blood Pressure 120/86 120/86 120/86 O2 Sat by Pulse Oximetry 07/26/22 14:00 Temperature Pulse Rate 98 H Respiratory 13 Rate Blood Pressure 120/86 O2 Sat by Pulse Oximetry - Reevaluation(s) Reevaluation #1: 07/26/22 15:03 Patient is now fully alert and oriented, and is requesting to go home. Patient will be discharged home. ED Medical Decision Making - Lab Data Result diagrams: 07/26/22 12:07 07/26/22 12:25 - Differential Diagnosis Medication noncompliance, alcohol intoxication, intracranial hemorrhage Critical care attestation.: If time is entered above; I have spent that time in minutes in the direct care of this critically ill patient, excluding procedure time. ED Disposition Clinical Impression: Seizure Disposition: 01 HOME / SELF CARE / HOMELESS Is pt being admited?: No Condition: Stable Instructions: Seizure, Adult, [id number] Prescriptions: Phenytoin [Dilantin] 100 mg PO Q8HR #90 levETIRAcetam [Keppra TAB] 1,000 mg PO BID 30 Days #60 tablet Time of Disposition: 15:05
[2022-07-26 12:51] LABS: Basophils % (Auto) 0.7 % (0.0-1.8); Eosinophils % (Auto) 0.1 % (0.0-4.3); Hemoglobin 13.5 gm/dl (11.8-15.2); Lymphocytes # (Auto) 0.7 K/mm3 (1.2-5.4); Lymphocytes % (Auto) 14.7 % (13.4-35.0); Mean Corpuscular HGB Conc 33 % (32-34); Mean Corpuscular Volume 103 fl (84-94); Monocytes # (Auto) 0.6 K/mm3 (0.0-0.8); Monocytes % (Auto) 13.3 % (0.0-7.3); Platelet Count 161 K/mm3 (140-440); Red Blood Count 3.99 M/mm3 (3.65-5.03); Red Cell Distribution Width 13.7 % (13.2-15.2)
--- NOTE | 2022-07-26 13:05 | Cat Scan Report ---
CT HEAD WITHOUT CONTRAST INDICATION / CLINICAL INFORMATION: Seizure. TECHNIQUE: All CT scans at this location are performed using CT dose reduction for ALARA by means of automated e xposure control. COMPARISON: Head CT 06/06/2022 and 07/02/2020 and MRI brain 05/11/2022 FINDINGS: HEMORRHAGE: No evidence of intracranial hemorrhage or extra-axial fluid collection. EXTRA-AXIAL SPACES: Cortical sulci and sylvian fissures are enlarged reflecting a degree of parenchym al volume loss which is greater than expected the patient's age of 56 years. Basilar cisterns have an unremarkable appearance. VENTRICULAR SYSTEM: The third and lateral ventricles are enlarged out of proportion to the cortical s ulci. This probably reflects the presence of central greater than cortical atrophy. CEREBRAL PARENCHYMA: Encephalomalacia is observed involving portions of the left frontal lobe, left t emporal lobe and left parietal lobe secondary to remote left MCA infarction. This is unchanged in com parison to recent previous studies. MIDLINE SHIFT OR HERNIATION: There is no mass effect. CEREBELLUM / BRAINSTEM: Brainstem and cerebellum have an unremarkable appearance. MIDLINE STRUCTURES:No abnormalities of the pituitary gland or pineal region are observed INTRACRANIAL VESSELS:Calcified atherosclerotic plaque is present along the course of the cavernous se gments of both internal carotid arteries. Similar findings are seen at the distal vertebral arteries. CRANIOCERVICAL JUNCTION:No abnormality ORBITS: visualized portions of the orbits have an unremarkable appearance. SOFT TISSUES of HEAD: No significant abnormality. CALVARIUM: Evaluation of bone windows reveals no abnormalities. PARANASAL SINUSES / MASTOID AIR CELLS: Paranasal sinuses are free from inflammatory mucosal disease. Mastoid air cells are normally pneumatized. IMPRESSION: 1. Stable appearing encephalomalacia secondary to left MCA infarction. 2. Central greater than cortical atrophy greater than expected for age 56 years, unchanged. 3. No acute intracranial abnormality. Signer Name: Dennis Pelayo MD Signed: 07/26/2022 1:01 PM Workstation Name: [id number]
[2022-07-26 13:12] LABS: Blood Urea Nitrogen 8 mg/dL (9-20); Calcium 9.5 mg/dL (8.4-10.2); Hemolysis Index 11
[2022-07-26 13:20] LABS: BUN/Creatinine Ratio 13
[2022-07-26 14:07] VITALS: BP 120/86
== END 2022-07-26 15:16 | disposition home or self-care (01) ==
LOC: ED 11:10
DX: R56.9 Unspecified convulsions (principal); I10 Essential (primary) hypertension; F17.200 Nicotine dependence, unspecified, uncomplicated
CPT/HCPCS: 36415; 70450; 80048; 80185; 85025; 99284; J7040; 80320; G0480

== ENCOUNTER 2022-08-26 00:32 | Emergency (ER) | payer MEDICAID ==
--- NOTE | 2022-08-26 01:45 | Emergency Department Report ---
ED General Adult HPI - General Chief complaint: Medical Clearance Stated complaint: I am fine, why are you here Time Seen by Provider: 08/26/22 01:33 Source: patient, EMS (EMS documentation reviewed and appreciated), RN notes reviewed Mode of arrival: Stretcher Limitations: Other (Patient is a poor historian) - History of Present Illness Initial comments: This is a 56-year-old gentleman. He has a history of seizure, alcoholism, and possible TIA. He was recently admitted to this hospital for stroke work-up, and had an essentially unremarkable work-up. The patient is brought to the hospital by emergency medical services. The patient denies all complaints at this time. He states that he is fine. As per EMS documentation, the patient's called 911 because she thought the patient was going to have a seizure. The patient's stated that the patient had been drinking copious amounts of alcohol. The patient denied consuming alcohol today. EMS indicates that alcohol was present on the patient's breath. No focal neurologic deficits were noted with EMS documentation. The patient was assisted with walking to the ambulance. His vital signs in the field were unremarkable, and EMS reports that the patient had a GCS of 15 in the field. Here in the emergency room, the patient denies all complaints. - Related Data Home Medications Medication Instructions Recorded Confirmed Last Taken Cholecalciferol Vit D3 [Vitamin D3 5,000 unit PO QWEEK 05/10/22 05/10/22 Unknown 1,000 UNIT TAB] Previous Rx's Medication Instructions Recorded Last Taken Type Amlodipine Besylate [Norvasc] 10 mg PO QDAY 90 Days #90 tab 05/11/22 Unknown Rx Aspirin 325 mg PO QDAY 90 Days #90 tablet 05/11/22 Unknown Rx AtorvaSTATin [Lipitor] 40 mg PO QHS 90 Days #90 tablet 05/11/22 Unknown Rx Clopidogrel [Plavix] 75 mg PO QDAY 30 Days #30 tablet 05/11/22 Unknown Rx Multivitamin with Folic Acid [[facility] 400 mcg PO QDAY #30 tablet 08/26/22 Unknown Rx One Daily Essential Tablet] Phenytoin [Dilantin] 100 mg PO Q8HR #90 08/26/22 Unknown Rx chlordiazePOXIDE [Librium] 25 mg PO Q6H PRN #25 capsule 08/26/22 Unknown Rx levETIRAcetam [Keppra TAB] 1,000 mg PO BID 30 Days #60 tablet 08/26/22 Unknown Rx Allergies Allergy/AdvReac Type Severity Reaction Status Date / Time No Known Allergies Allergy Verified 07/26/22 11:13 ED Review of Systems ROS: Stated complaint: AMS Other details as noted in HPI Constitutional: denies: fever Respiratory: denies: cough Cardiovascular: denies: chest pain Gastrointestinal: denies: abdominal pain Psychiatric: denies: homicidal thoughts, suicidal thoughts ED Past Medical Hx - Past Medical History Hx Hypertension: Yes Hx Seizures: Yes Additional medical history: Traumatic brain injury - Social History Smoking Status: Current Every Day Smoker - Medications Home Medications: Home Medications Medication Instructions Recorded Confirmed Last Taken Type Cholecalciferol Vit D3 [Vitamin D3 5,000 unit PO QWEEK 05/10/22 05/10/22 Unknown History 1,000 UNIT TAB] Amlodipine Besylate [Norvasc] 10 mg PO QDAY 90 Days #90 tab 05/11/22 Unknown Rx Aspirin 325 mg PO QDAY 90 Days #90 tablet 05/11/22 Unknown Rx AtorvaSTATin [Lipitor] 40 mg PO QHS 90 Days #90 tablet 05/11/22 Unknown Rx Clopidogrel [Plavix] 75 mg PO QDAY 30 Days #30 tablet 05/11/22 Unknown Rx Multivitamin with Folic Acid [[facility] 400 mcg PO QDAY #30 tablet 08/26/22 Unknown Rx One Daily Essential Tablet] Phenytoin [Dilantin] 100 mg PO Q8HR #90 08/26/22 Unknown Rx chlordiazePOXIDE [Librium] 25 mg PO Q6H PRN #25 capsule 08/26/22 Unknown Rx levETIRAcetam [Keppra TAB] 1,000 mg PO BID 30 Days #60 tablet 08/26/22 Unknown Rx ED Physical Exam - General Limitations: Other (The patient is a poor historian) General appearance: in no apparent distress - Head Head exam: Present: atraumatic, normocephalic - Eye Eye exam: Present: normal appearance, EOMI. Absent: nystagmus - ENT ENT exam: Present: normal exam, normal orophraynx, mucous membranes moist, normal external ear exam - Neck Neck exam: Present: normal inspection, full ROM. Absent: tenderness, meningismus - Respiratory Respiratory exam: Present: normal lung sounds bilaterally. Absent: respiratory distress, wheezes, rales, rhonchi, stridor, decreased breath sounds - Cardiovascular Cardiovascular Exam: Present: regular rate, normal rhythm, normal heart sounds. Absent: bradycardia, tachycardia, irregular rhythm, systolic murmur, diastolic murmur, rubs, gallop - GI/Abdominal GI/Abdominal exam: Present: soft. Absent: distended, tenderness, guarding, rebound, rigid, pulsatile mass - Rectal Rectal exam: Present: deferred - Extremities Exam Extremities exam: Present: normal inspection, full ROM, other (2+ pulses noted in the bilateral upper and lower extremities. There is no palpable cord. negative Homans sign. Muscular compartments are soft. The pelvis is stable.). Absent: pedal edema, calf tenderness - Back Exam Back exam: Present: normal inspection. Absent: tenderness, CVA tenderness (R), CVA tenderness (L), paraspinal tenderness, vertebral tenderness - Neurological Exam Neurological exam: Present: alert (Patient is awake and alert to name. He follows commands), other (There is no facial droop. The tongue is midline. EOMI. 5 out of 5 strength in 4 extremities) - Psychiatric Psychiatric exam: Present: flat affect - Skin Skin exam: Present: warm, dry, intact, normal color. Absent: rash ED Course Vital Signs 08/26/22 08/26/22 08/26/22 00:39 02:07 02:15 Temperature 98.2 F Pulse Rate 100 H Respiratory 16 Rate Blood Pressure 108/79 Blood Pressure 188/82 [Right] O2 Sat by Pulse 99 98 98 Oximetry 08/26/22 08/26/22 08/26/22 02:31 02:45 03:01 Temperature Pulse Rate Respiratory Rate Blood Pressure 108/79 108/79 108/79 Blood Pressure [Right] O2 Sat by Pulse 98 98 96 Oximetry 08/26/22 08/26/22 08/26/22 03:15 03:31 03:45 Temperature Pulse Rate Respiratory Rate Blood Pressure 110/76 110/76 110/76 Blood Pressure [Right] O2 Sat by Pulse 95 96 94 Oximetry 08/26/22 08/26/22 08/26/22 04:01 04:19 04:31 Temperature Pulse Rate Respiratory Rate Blood Pressure 108/79 108/79 108/79 Blood Pressure [Right] O2 Sat by Pulse 97 95 96 Oximetry - Reevaluation(s) Reevaluation #1: 08/26/22 04:10 Differential diagnosis, include but not limited to: Seizure, pseudoseizure, noncompliance, alcoholism, electrolyte derangement, pneumonia, intracranial lesion Assessment and plan: 56-year-old gentleman, with resolved tachycardia, who is awake and alert to name and follows commands. As per review of old medical records, he does have poor baseline cognition. He recently had a stroke work-up which was negative for acute findings. He recently had a urinalysis in April, which was negative for acute findings. Patient had a glucose of 71/72 initially, likely secondary to malnutrition, likely secondary to underlying alcoholism. His laboratory studies are essentially otherwise unremarkable and nonactionable. He was given Keppra while here in the emergency room. No seizures have been noted. He ate food without difficulty. Currently awaiting repeat Accu-Chek. Thus far, an emergent medical condition has not been identified 08/26/22 04:28 Glucose is 143. No seizures noted. 08/26/22 04:43 CT scan brain negative for acute findings. Patient resting comfortably in stretcher and in no acute distress. He may be discharged for outpatient follow- up. ED Medical Decision Making - Lab Data Result diagrams: 08/26/22 01:55 08/26/22 01:55 Vital Signs 08/26/22 00:39 Temperature 98.2 F Pulse Rate 100 H Respiratory 16 Rate Blood Pressure 188/82 [Right] O2 Sat by Pulse 99 Oximetry Lab Results 08/26/22 08/26/22 08/26/22 Range/Units 01:55 01:55 01:55 WBC 8.9 (4.5-11.0) K/mm3 RBC 3.69 (3.65-5.03) M/mm3 Hgb 12.3 (11.8-15.2) gm/dl Hct 36.9 (35.5-45.6) % MCV 100 H (84-94) fl MCH 33 H (28-32) pg MCHC 33 (32-34) % RDW 13.3 (13.2-15.2) % Plt Count 70 L (140-440) K/mm3 Sodium 132 L (137-145) mmol/L Potassium 3.2 L (3.6-5.0) mmol/L Chloride 80.8 L (98-107) mmol/L Carbon Dioxide 23 (22-30) mmol/L Anion Gap 31 mmol/L BUN 12 (9-20) mg/dL Creatinine 0.6 L (0.8-1.3) mg/dL Estimated GFR > 60 ml/min BUN/Creatinine Ratio 20 % Glucose 71 L (75-100) mg/dL Calcium 9.0 (8.4-10.2) mg/dL Magnesium 2.10 (1.7-2.3) mg/dL Total Creatine Kinase 77 (55-170) units/L Salicylates < 0.3 L (2.8-20.0) mg/dL Acetaminophen (10.0-30.0) ug/mL Plasma/Serum Alcohol (0-0.07) % 08/26/22 08/26/22 Range/Units 01:55 01:55 WBC (4.5-11.0) K/mm3 RBC (3.65-5.03) M/mm3 Hgb (11.8-15.2) gm/dl Hct (35.5-45.6) % MCV (84-94) fl MCH (28-32) pg MCHC (32-34) % RDW (13.2-15.2) % Plt Count (140-440) K/mm3 Sodium (137-145) mmol/L Potassium (3.6-5.0) mmol/L Chloride (98-107) mmol/L Carbon Dioxide (22-30) mmol/L Anion Gap mmol/L BUN (9-20) mg/dL Creatinine (0.8-1.3) mg/dL Estimated GFR ml/min BUN/Creatinine Ratio % Glucose (75-100) mg/dL Calcium (8.4-10.2) mg/dL Magnesium (1.7-2.3) mg/dL Total Creatine Kinase (55-170) units/L Salicylates (2.8-20.0) mg/dL Acetaminophen 5.0 L (10.0-30.0) ug/mL Plasma/Serum Alcohol 0.05 (0-0.07) % - EKG Data -: EKG Interpreted by Ks - EKG Data 08/26/22 04:06 The EKG is interpreted at 04: 00 AM. Sinus tachycardia, with a rate of 103 bpm. Normal axis, normal P wave axis, left ventricular hypertrophy, prolonged QTC, abnormal EKG, not a STEMI. - Radiology Data Radiology results: report reviewed, image reviewed CHEST 1 VIEW 08/26/2022 2:05 AM INDICATION / CLINICAL INFORMATION: Medical clearance for possible seizure. COMPARISON: 06/06/2022 FINDINGS: SUPPORT DEVICES: None. HEART / MEDIASTINUM: No significant abnormality. LUNGS / PLEURA: No significant pulmonary or pleural abnormality. No pneumothorax. ADDITIONAL FINDINGS: None IMPRESSION: 1. No acute chest process. Signer Name: Fredy mcdonough MD Signed: 08/26/2022 2:20 AM Workstation Name: [email or web address] CT HEAD WITHOUT CONTRAST INDICATION / CLINICAL INFORMATION: Alcohol abuse and possible seizure. TECHNIQUE: All CT scans at this location are performed using CT dose reduction for ALARA by means of automated exposure control. COMPARISON: 07/26/2022 CT brain FINDINGS: CEREBRAL/CEREBELLAR PARENCHYMA: Stable encephalomalacia secondary to a chronic left MCA infarct with chronic ischemic changes seen in the left frontal, temporal and parietal lobes. Mild generalized atrophy and mild periventricular chronic microangiopathy. Mild wallerian degeneration of the left cerebral peduncle. No CT evidence for an acute or subacute territorial infarct. HEMORRHAGE: No acute intra-axial hemorrhage or extra-axial fluid collection. MASS: No mass or mass effect. VENTRICULAR SYSTEM: Normal in size and morphology for the patient's age. ORBITS: No acute process. SOFT TISSUES/SKULL: No scalp hematoma or skull fracture. PARANASAL SINUSES/MASTOID AIR CELLS: Normal as visualized. IMPRESSION: 1. No acute intracranial process. 2. Stable chronic left cerebral encephalomalacia associated with a remote left MCA distribution infarct. Signer Name: Fredy Delarosa MD Signed: 08/26/2022 3:33 AM Workstation Name: [email or web address] Critical care attestation.: If time is entered above; I have spent that time in minutes in the direct care of this critically ill patient, excluding procedure time. ED Disposition Clinical Impression: Alcohol dependence, Hypokalemia, History of seizure Disposition: 01 HOME / SELF CARE / HOMELESS Is pt being admited?: No Does the pt Need Aspirin: No Condition: Good Instructions: Seizure, Adult, [id number] Additional Instructions: Recommend that the patient not drive or operate motor vehicles for the next 6 months, or until cleared to do so by a primary care doctor. We recommend that the patient take a multivitamin [id number] on a daily basis. Recommend that patient consume foods that have elevated potassium, magnesium, calcium, such as banana, avocado, or potato. Take a multivitamin on a daily basis. Avoid consumption of alcohol, tobacco or smoke products. Please continue current outpatient seizure medications. Follow-up with a primary care doctor within the next week. Please return to the emergency room right away with new pain, worsened pain, migration of pain, projectile vomiting, change in mental status, confusion, inability tolerate liquid feeds, new, worsened or different symptoms not present on the initial emergency room evaluation Prescriptions: Multivitamin with Folic Acid [Cvs One Daily Essential Tablet] 400 mcg PO QDAY #30 tablet Phenytoin [Dilantin] 100 mg PO Q8HR #90 levETIRAcetam [Keppra TAB] 1,000 mg PO BID 30 Days #60 tablet chlordiazePOXIDE [Librium] 25 mg PO Q6H PRN #25 capsule PRN Reason: Alcohol Withdrawal Referrals: CLARENCE SANTOS MD [Primary Care Provider] - 3-5 Days PAULO DORMAN MD [Staff Physician] - 3-5 Days [facility] [Provider Group] - 3-5 Days
[2022-08-26 02:11] LABS: Hematocrit 36.9 % (35.5-45.6); Hemoglobin 12.3 gm/dl (11.8-15.2); Mean Corpuscular HGB Conc 33 % (32-34); Mean Corpuscular Volume 100 fl (84-94); Red Blood Count 3.69 M/mm3 (3.65-5.03); Red Cell Distribution Width 13.3 % (13.2-15.2)
[2022-08-26 02:16] LABS: Platelet Count 70 K/mm3 (140-440)
[2022-08-26 02:34] LABS: Blood Urea Nitrogen 12 mg/dL (9-20); Hemolysis Index 7
[2022-08-26 02:41] LABS: BUN/Creatinine Ratio 20
[2022-08-26] MEDS ORDERED: DEXTROSE 50% IN WATER (25GM) 50 ML VIAL IV PRN (02:54)
[2022-08-26] MEDS ORDERED: levETIRAcetam 500 MG TAB PO STA (02:54)
[2022-08-26] MEDS ORDERED: PHENYTOIN 100 MG CAPSULE.ER PO STA (02:54)
--- NOTE | 2022-08-26 03:24 | XRay Report ---
CHEST 1 VIEW 08/26/2022 2:05 AM INDICATION / CLINICAL INFORMATION: Medical clearance for possible seizure. COMPARISON: 06/06/2022 FINDINGS: SUPPORT DEVICES: None. HEART / MEDIASTINUM: No significant abnormality. LUNGS / PLEURA: No significant pulmonary or pleural abnormality. No pneumothorax. ADDITIONAL FINDINGS: None IMPRESSION: 1. No acute chest process. Signer Name: Fredy Delarosa MD Signed: 08/26/2022 3:20 AM Workstation Name: [email or web address]
[2022-08-26] MEDS ORDERED: POTASSIUM CHLORIDE ER 20 MEQ TAB PO ONE (04:11)
--- NOTE | 2022-08-26 04:38 | Cat Scan Report ---
CT HEAD WITHOUT CONTRAST INDICATION / CLINICAL INFORMATION: Alcohol abuse and possible seizure. TECHNIQUE: All CT scans at this location are performed using CT dose reduction for ALARA by means of automated exposure control. COMPARISON: 07/26/2022 CT brain FINDINGS: CEREBRAL/CEREBELLAR PARENCHYMA: Stable encephalomalacia secondary to a chronic left MCA infarct with chronic ischemic changes seen in the left frontal, temporal and parietal lobes. Mild generalized atro phy and mild periventricular chronic microangiopathy. Mild wallerian degeneration of the left cerebra l peduncle. No CT evidence for an acute or subacute territorial infarct. HEMORRHAGE: No acute intra-axial hemorrhage or extra-axial fluid collection. MASS: No mass or mass effect. VENTRICULAR SYSTEM: Normal in size and morphology for the patient's age. ORBITS: No acute process. SOFT TISSUES/SKULL: No scalp hematoma or skull fracture. PARANASAL SINUSES/MASTOID AIR CELLS: Normal as visualized. IMPRESSION: 1. No acute intracranial process. 2. Stable chronic left cerebral encephalomalacia associated with a remote left MCA distribution infar ct. Signer Name: Fredy Delarosa MD Signed: 08/26/2022 4:33 AM Workstation Name: [email or web address]
[2022-08-26 04:44] VITALS: BP 108/79
--- NOTE | 2022-08-28 12:00 | Electrocardiograph Report ---
[facility] Test Date: 2022-08-26 Test Time: 03:58:41 Pat Name: MARTELL MARCELINO III Department: Room: Gender: M [employer]: RADHA MCKEON : 1965 Requested By: IVORY PRASAD Order Number: [id number] Reading MD: Jose Ramos Measurements Intervals [place] Rate: 103 P: 85 PA: 150 QRS: 32 QRSD: 92 T: 56 QT: 414 QTc: 544 Interpretive Statements Sinus tachycardia Prolonged QT interval Compared to ECG 05/09/2022 17:28:15 Sinus rhythm no longer present Myocardial infarct finding no longer present Electronically Signed On 08-28-2022 8:59:41 PDT by Jose Ramos
== END 2022-08-26 05:15 | disposition home or self-care (01) ==
LOC: ED 00:32
DX: F10.20 Alcohol dependence, uncomplicated (principal); E87.6 Hypokalemia; R56.9 Unspecified convulsions; I10 Essential (primary) hypertension; F17.200 Nicotine dependence, unspecified, uncomplicated; Z72.89 Other problems related to lifestyle; Z79.899 Other long term (current) drug therapy; Y90.9 Presence of alcohol in blood, level not specified
CPT/HCPCS: 36415; 70450; 71045; 80048; 80320; 82550; 82962; 83735; 85027; 93005; 99285; G0480